=== PATIENT | female | born 1975 | race American Indian/Alaskan Native ===

== ENCOUNTER 2020-10-29 18:37 | Inpatient (IN) | payer OTHER ==
[2020-10-29] MEDS ORDERED: IPRATROPIUM/ALBUTEROL SULFATE 3 ML AMPUL.NEB IH ONE (19:19)
--- NOTE | 2020-10-29 19:23 | Emergency Department Report ---
HPI - General Chief Complaint: Dyspnea/Respdistress Time Seen by Provider: 10/29/20 19:07 - HPI HPI: 44-year-old female with history of COPD and HIV is brought in by EMS due to worsening shortness of breath and hypoxia. According to the EMS report, the p atient called because she was feeling more short of breath and when they arrived she was noted to be hypoxic with an oxygen saturation in the 80s on room air. She was given 2 L via nasal cannula and her oxygen saturation improved to the high 90s. The patient states that she has been off all antiretroviral therapy for the past 6 months because her prior therapy was causing her to vomit. For the past 2 months she has been experiencing worsening shortness of breath and unintentional weight loss. She is unsure of exactly how much weight she has lost. The patient has bilateral breast implants and says that with her weight loss they are very heavy on her chest and weighing her down. She has had a chronic cough over that period of time. Her shortness of breath worsened over the last week and was not improved by using her inhaler and so she decided to call 911. She has had no chest pain palpitations, nausea vomiting, abdominal pain, headache, vision change, back pain, dysuria, or any other complaints. At the present time her only complaint is mild shortness of breath which is improved on supplemental oxygen. She is fully vaccinated against COVID-19. ED Past Medical Hx - Past Medical History Previous Medical History?: Yes Hx HIV: Yes Additional medical history: COPD - Surgical History Past Surgical History?: Yes Additional Surgical History: Breast - Social History Smoking Status: Current Every Day Smoker Substance Use Type: None ED Review of Systems ROS: Stated complaint: DIFF BREATHING Other details as noted in HPI Constitutional: denies: chills, fever Eyes: denies: eye pain, vision change ENT: denies: throat pain, congestion Respiratory: cough, shortness of breath, wheezing Cardiovascular: denies: chest pain, palpitations, syncope Gastrointestinal: denies: abdominal pain, nausea, vomiting, diarrhea Genitourinary: denies: dysuria, frequency Musculoskeletal: denies: back pain, joint swelling Skin: denies: rash, pruritus Neurological: denies: headache, weakness, numbness, paresthesias Physical Exam - Physical Exam Vital Signs: Vital Signs 10/29/20 19:09 Temperature 97.9 F Pulse Rate 106 H Respiratory 18 Rate Blood Pressure 113/85 [Right] O2 Sat by Pulse 100 Oximetry Physical Exam: GENERAL: Well developed and well nourished. In mild respiratory distress HEAD: Normocephalic. No obvious signs of trauma. ENT: Moist mucous membranes. EYES: Extraocular movements are intact. Pupils are equal round and reactive to light bilaterally NECK: Supple. Full ROM is intact. Trachea is midline. LUNGS: Tripod posturing. Tachypneic but without accessory muscle use. Equal chest rise bilaterally. Lung auscultation reveals globally decreased air movement throughout with no discernible wheezes. CARDIOVASCULAR: Regular rate and rhythm. No murmurs or rubs. CHEST: RN Sarah was in the room as a machine farmworker, the patient has bilateral breast implants with overlying peau d'orange -like skin changes which the patient states has been chronic VASCULAR: Cap refill < 2 seconds. 1+ edema of the bilateral lower extremities ABDOMEN: Abdomen is soft and nondistended. There is no significant tenderness, guarding or rebound. SKIN: Skin is warm and dry NEURO: Patient is awake, alert, and oriented. beverage manager II-XII grossly intact. No focal deficits. Normal motor and sensory exam throughout. Normal speech. MUSCULOSKELETAL: No obvious deformities. No significant tenderness. Normal ROM throughout. BACK/SPINE: No costovertebral angle tenderness. ED Course Vital Signs 10/29/20 19:09 Temperature 97.9 F Pulse Rate 106 H Respiratory 18 Rate Blood Pressure 113/85 [Right] O2 Sat by Pulse 100 Oximetry ED Medical Decision Making - Lab Data Result diagrams: 10/29/20 19:38 10/29/20 19:38 Lab Results 10/29/20 10/29/20 10/29/20 Range/Units 19:38 19:38 19:38 WBC 3.5 L (4.5-11.0) K/mm3 RBC 5.30 H (3.65-5.03) M/mm3 Hgb 13.3 (10.1-14.3) gm/dl Hct 42.2 (30.3-42.9) % MCV 80 (79-97) fl MCH 25 L (28-32) pg MCHC 32 (30-34) % RDW 15.9 H (13.2-15.2) % Plt Count 142 (140-440) K/mm3 Dickenson % (Auto) Service Parts Coordinator Add Manual Diff Complete Total Counted 100 Seg Neuts % (Manual) 63.0 (40.0-70.0) % Lymphocytes % (Manual) 19.0 (13.4-35.0) % Monocytes % (Manual) 15.0 H (0.0-7.3) % Eosinophils % (Manual) 2.0 (0.0-4.3) % Basophils % (Manual) 1.0 (0.0-1.8) % Nucleated RBC % Not Reportable Seg Neutrophils # Man 2.2 (1.8-7.7) K/mm3 Band Neutrophils # 0.0 K/mm3 Lymphocytes # (Manual) 0.7 L (1.2-5.4) K/mm3 Abs React Lymphs (Man) 0.0 K/mm3 Monocytes # (Manual) 0.5 (0.0-0.8) K/mm3 Eosinophils # (Manual) 0.1 (0.0-0.4) K/mm3 Basophils # (Manual) 0.0 (0.0-0.1) K/mm3 Metamyelocytes # 0.0 K/mm3 Myelocytes # 0.0 K/mm3 Promyelocytes # 0.0 K/mm3 Blast Cells # 0.0 K/mm3 WBC Morphology Not Reportable Hypersegmented Neuts Not Reportable Hyposegmented Neuts Not Reportable Hypogranular Neuts Not Reportable Smudge Cells Not Reportable Toxic Granulation Not Reportable Toxic Vacuolation Not Reportable Dohle Bodies Not Reportable Pelger-Huet Anomaly Not Reportable Sara Rods Not Reportable Platelet Estimate Not Reportable Clumped Platelets Not Reportable Plt Clumps, EDTA Not Reportable Large Platelets Not Reportable Giant Platelets Not Reportable Platelet Satelliting Not Reportable Plt Morphology Comment Not Reportable RBC Morphology Not Reportable Dimorphic RBCs Not Reportable Polychromasia Not Reportable Hypochromasia 1+ Poikilocytosis Not Reportable Anisocytosis Rare Microcytosis Not Reportable Macrocytosis Not Reportable Spherocytes Not Reportable Pappenheimer Bodies Not Reportable Sickle Cells Not Reportable Target Cells Not Reportable Tear Drop Cells Not Reportable Ovalocytes Not Reportable Helmet Cells Not Reportable [place] Bodies Not Reportable Rosenberg Rings Not Reportable Mary Cells Not Reportable Bite Cells Not Reportable Crenated Cell Not Reportable Elliptocytes Not Reportable Acanthocytes (Spur) Not Reportable Rouleaux Not Reportable Hemoglobin C Crystals Not Reportable Schistocytes Not Reportable Malaria parasites Not Reportable Margarito Bodies Not Reportable Hem Pathologist Commnt No PT 13.7 (12.2-14.9) Sec. INR 0.99 (0.87-1.13) APTT 31.3 (24.2-36.6) Sec. D-Dimer 1118.13 H (0-234) ng/mlDDU ABG pH (7.320-7.450) POC ABG pCO2 (32.0-48.0) mmHg POC ABG pO2 (83-108) mmHg POC ABG HCO3 ABG O2 Saturation (0-100) POC ABG Base Excess ABG Hemoglobin (12.0-17.5) ABG Oxyhemoglobin (94-98) ABG Methemoglobin (0.0-1.5) ABG Sodium (136.0-145.0) mmol/L ABG Potassium (3.40-4.50) mmol/L ABG Chloride (98-107) mmol/L ABG Glucose (65-95) mg/dL Carboxyhemoglobin (0.5-1.5) FiO2 % Sodium 138 (137-145) mmol/L Potassium 5.0 (3.6-5.0) mmol/L Chloride 100.4 (98-107) mmol/L Carbon Dioxide 30 (22-30) mmol/L Anion Gap 13 mmol/L BUN 13 (7-17) mg/dL Creatinine 1.2 (0.6-1.2) mg/dL Estimated GFR 48 ml/min BUN/Creatinine Ratio 11 % Glucose 81 (65-100) mg/dL Calcium 8.4 (8.4-10.2) mg/dL Magnesium 1.70 (1.7-2.3) mg/dL Ferritin (10.0-200.0) ng/mL Total Bilirubin 0.40 (0.1-1.2) mg/dL Direct Bilirubin < 0.2 (0-0.2) mg/dL Indirect Bilirubin 0.2 mg/dL AST 47 H (5-40) units/L ALT 12 (7-56) units/L Alkaline Phosphatase 94 (35-129) units/L Lactate Dehydrogenase (91-180) units/L Troponin T (0.00-0.029) ng/mL C-Reactive Protein (0.00-1.30) mg/dL NT-Pro-B Natriuret Pep 173.4 (0-450) pg/mL Total Protein 7.9 (6.3-8.2) g/dL Albumin 3.3 L (3.9-5) g/dL Albumin/Globulin Ratio 0.7 % Lipase 25 (13-60) units/L TSH (0.270-4.200) mlU/mL Arterial Blood Glucose (65-95) mg/dL 10/29/20 10/29/20 10/29/20 Range/Units 19:38 19:38 19:38 WBC (4.5-11.0) K/mm3 RBC (3.65-5.03) M/mm3 Hgb (10.1-14.3) gm/dl Hct (30.3-42.9) % MCV (79-97) fl MCH (28-32) pg MCHC (30-34) % RDW (13.2-15.2) % Plt Count (140-440) K/mm3 Dickenson % (Auto) Add Manual Diff Total Counted Seg Neuts % (Manual) (40.0-70.0) % Lymphocytes % (Manual) (13.4-35.0) % Monocytes % (Manual) (0.0-7.3) % Eosinophils % (Manual) (0.0-4.3) % Basophils % (Manual) (0.0-1.8) % Nucleated RBC % Seg Neutrophils # Man (1.8-7.7) K/mm3 Band Neutrophils # K/mm3 Lymphocytes # (Manual) (1.2-5.4) K/mm3 Abs React Lymphs (Man) K/mm3 Monocytes # (Manual) (0.0-0.8) K/mm3 Eosinophils # (Manual) (0.0-0.4) K/mm3 Basophils # (Manual) (0.0-0.1) K/mm3 Metamyelocytes # K/mm3 Myelocytes # K/mm3 Promyelocytes # K/mm3 Blast Cells # K/mm3 WBC Morphology Hypersegmented Neuts Hyposegmented Neuts Hypogranular Neuts Smudge Cells Toxic Granulation Toxic Vacuolation Dohle Bodies Pelger-Huet Anomaly Sara Rods Platelet Estimate Clumped Platelets Plt Clumps, EDTA Large Platelets Giant Platelets Platelet Satelliting Plt Morphology Comment RBC Morphology Dimorphic RBCs Polychromasia Hypochromasia Poikilocytosis Anisocytosis Microcytosis Macrocytosis Spherocytes Pappenheimer Bodies Sickle Cells Target Cells Tear Drop Cells Ovalocytes Helmet Cells [place] Bodies Rosenberg Rings [place] Cells Bite Cells Crenated Cell Elliptocytes Acanthocytes (Spur) Rouleaux Hemoglobin C Crystals Schistocytes Malaria parasites Margarito Bodies Hem Pathologist Commnt PT (12.2-14.9) Sec. INR (0.87-1.13) APTT (24.2-36.6) Sec. D-Dimer (0-234) ng/mlDDU ABG pH (7.320-7.450) POC ABG pCO2 (32.0-48.0) mmHg POC ABG pO2 (83-108) mmHg POC ABG HCO3 ABG O2 Saturation (0-100) POC ABG Base Excess ABG Hemoglobin (12.0-17.5) ABG Oxyhemoglobin (94-98) ABG Methemoglobin (0.0-1.5) ABG Sodium (136.0-145.0) mmol/L ABG Potassium (3.40-4.50) mmol/L ABG Chloride (98-107) mmol/L ABG Glucose (65-95) mg/dL Carboxyhemoglobin (0.5-1.5) FiO2 % Sodium (137-145) mmol/L Potassium (3.6-5.0) mmol/L Chloride (98-107) mmol/L Carbon Dioxide (22-30) mmol/L Anion Gap mmol/L BUN (7-17) mg/dL Creatinine (0.6-1.2) mg/dL Estimated GFR ml/min BUN/Creatinine Ratio % Glucose 82 (65-100) mg/dL Calcium (8.4-10.2) mg/dL Magnesium (1.7-2.3) mg/dL Ferritin (10.0-200.0) ng/mL Total Bilirubin (0.1-1.2) mg/dL Direct Bilirubin (0-0.2) mg/dL Indirect Bilirubin mg/dL AST (5-40) units/L ALT (7-56) units/L Alkaline Phosphatase (35-129) units/L Lactate Dehydrogenase 817 H (91-180) units/L Troponin T < 0.010 (0.00-0.029) ng/mL C-Reactive Protein 0.30 (0.00-1.30) mg/dL NT-Pro-B Natriuret Pep (0-450) pg/mL Total Protein (6.3-8.2) g/dL Albumin (3.9-5) g/dL Albumin/Globulin Ratio % Lipase (13-60) units/L TSH 2.240 (0.270-4.200) mlU/mL Arterial Blood Glucose (65-95) mg/dL 10/29/20 10/29/20 10/29/20 Range/Units 19:38 19:38 19:50 WBC (4.5-11.0) K/mm3 RBC (3.65-5.03) M/mm3 Hgb (10.1-14.3) gm/dl Hct (30.3-42.9) % MCV (79-97) fl MCH (28-32) pg MCHC (30-34) % RDW (13.2-15.2) % Plt Count (140-440) K/mm3 Dickenson % (Auto) Add Manual Diff Total Counted Seg Neuts % (Manual) (40.0-70.0) % Lymphocytes % (Manual) (13.4-35.0) % Monocytes % (Manual) (0.0-7.3) % Eosinophils % (Manual) (0.0-4.3) % Basophils % (Manual) (0.0-1.8) % Nucleated RBC % Seg Neutrophils # Man (1.8-7.7) K/mm3 Band Neutrophils # K/mm3 Lymphocytes # (Manual) (1.2-5.4) K/mm3 Abs React Lymphs (Man) K/mm3 Monocytes # (Manual) (0.0-0.8) K/mm3 Eosinophils # (Manual) (0.0-0.4) K/mm3 Basophils # (Manual) (0.0-0.1) K/mm3 Metamyelocytes # K/mm3 Myelocytes # K/mm3 Promyelocytes # K/mm3 Blast Cells # K/mm3 WBC Morphology Hypersegmented Neuts Hyposegmented Neuts Hypogranular Neuts Smudge Cells Toxic Granulation Toxic Vacuolation Dohle Bodies Pelger-Huet Anomaly Sara Rods Platelet Estimate Clumped Platelets Plt Clumps, EDTA Large Platelets Giant Platelets Platelet Satelliting Plt Morphology Comment RBC Morphology Dimorphic RBCs Polychromasia Hypochromasia Poikilocytosis Anisocytosis Microcytosis Macrocytosis Spherocytes Pappenheimer Bodies Sickle Cells Target Cells Tear Drop Cells Ovalocytes Helmet Cells [place] Bodies Rosenberg Rings [place] Cells Bite Cells Crenated Cell Elliptocytes Acanthocytes (Spur) Rouleaux Hemoglobin C Crystals Schistocytes Malaria parasites Margarito Bodies Hem Pathologist Commnt PT (12.2-14.9) Sec. INR (0.87-1.13) APTT (24.2-36.6) Sec. D-Dimer (0-234) ng/mlDDU ABG pH 7.368 (7.320-7.450) POC ABG pCO2 55.7 H (32.0-48.0) mmHg POC ABG pO2 52.2 L (83-108) mmHg POC ABG HCO3 31.3 ABG O2 Saturation 86.7 (0-100) POC ABG Base Excess 4.5 ABG Hemoglobin 14.1 (12.0-17.5) ABG Oxyhemoglobin 85.5 L (94-98) ABG Methemoglobin 0 (0.0-1.5) ABG Sodium 137.5 (136.0-145.0) mmol/L ABG Potassium 4.4 (3.40-4.50) mmol/L ABG Chloride 100.0 (98-107) mmol/L ABG Glucose 83 (65-95) mg/dL Carboxyhemoglobin 1.4 (0.5-1.5) FiO2 % 21.0 Sodium (137-145) mmol/L Potassium (3.6-5.0) mmol/L Chloride (98-107) mmol/L Carbon Dioxide (22-30) mmol/L Anion Gap mmol/L BUN (7-17) mg/dL Creatinine (0.6-1.2) mg/dL Estimated GFR ml/min BUN/Creatinine Ratio % Glucose 81 (65-100) mg/dL Calcium (8.4-10.2) mg/dL Magnesium (1.7-2.3) mg/dL Ferritin 2459.0 H (10.0-200.0) ng/mL Total Bilirubin (0.1-1.2) mg/dL Direct Bilirubin (0-0.2) mg/dL Indirect Bilirubin mg/dL AST (5-40) units/L ALT (7-56) units/L Alkaline Phosphatase (35-129) units/L Lactate Dehydrogenase 769 H (91-180) units/L Troponin T (0.00-0.029) ng/mL C-Reactive Protein 0.30 (0.00-1.30) mg/dL NT-Pro-B Natriuret Pep (0-450) pg/mL Total Protein (6.3-8.2) g/dL Albumin (3.9-5) g/dL Albumin/Globulin Ratio % Lipase (13-60) units/L TSH (0.270-4.200) mlU/mL Arterial Blood Glucose 83 (65-95) mg/dL 10/30/20 10/30/20 Range/Units 00:02 00:42 WBC (4.5-11.0) K/mm3 RBC (3.65-5.03) M/mm3 Hgb (10.1-14.3) gm/dl Hct (30.3-42.9) % MCV (79-97) fl MCH (28-32) pg MCHC (30-34) % RDW (13.2-15.2) % Plt Count (140-440) K/mm3 Dickenson % (Auto) Add Manual Diff Total Counted Seg Neuts % (Manual) (40.0-70.0) % Lymphocytes % (Manual) (13.4-35.0) % Monocytes % (Manual) (0.0-7.3) % Eosinophils % (Manual) (0.0-4.3) % Basophils % (Manual) (0.0-1.8) % Nucleated RBC % Seg Neutrophils # Man (1.8-7.7) K/mm3 Band Neutrophils # K/mm3 Lymphocytes # (Manual) (1.2-5.4) K/mm3 Abs React Lymphs (Man) K/mm3 Monocytes # (Manual) (0.0-0.8) K/mm3 Eosinophils # (Manual) (0.0-0.4) K/mm3 Basophils # (Manual) (0.0-0.1) K/mm3 Metamyelocytes # K/mm3 Myelocytes # K/mm3 Promyelocytes # K/mm3 Blast Cells # K/mm3 WBC Morphology Hypersegmented Neuts Hyposegmented Neuts Hypogranular Neuts Smudge Cells Toxic Granulation Toxic Vacuolation Dohle Bodies Pelger-Huet Anomaly Sara Rods Platelet Estimate Clumped Platelets Plt Clumps, EDTA Large Platelets Giant Platelets Platelet Satelliting Plt Morphology Comment RBC Morphology Dimorphic RBCs Polychromasia Hypochromasia Poikilocytosis Anisocytosis Microcytosis Macrocytosis Spherocytes Pappenheimer Bodies Sickle Cells Target Cells Tear Drop Cells Ovalocytes Helmet Cells [place] Bodies Rosenberg Rings Mary Cells Bite Cells Crenated Cell Elliptocytes Acanthocytes (Spur) Rouleaux Hemoglobin C Crystals Schistocytes Malaria parasites Margarito Bodies Hem Pathologist Commnt PT (12.2-14.9) Sec. INR (0.87-1.13) APTT (24.2-36.6) Sec. D-Dimer (0-234) ng/mlDDU ABG pH 7.296 L (7.320-7.450) POC ABG pCO2 61.5 H (32.0-48.0) mmHg POC ABG pO2 77.7 L (83-108) mmHg POC ABG HCO3 29.3 ABG O2 Saturation 94.7 (0-100) POC ABG Base Excess 1.5 ABG Hemoglobin 13.0 (12.0-17.5) ABG Oxyhemoglobin 93.8 L (94-98) ABG Methemoglobin 0.1 (0.0-1.5) ABG Sodium 136.1 (136.0-145.0) mmol/L ABG Potassium 4.5 (3.40-4.50) mmol/L ABG Chloride 100.0 (98-107) mmol/L ABG Glucose 86 (65-95) mg/dL Carboxyhemoglobin 0.9 (0.5-1.5) FiO2 % 30.0 Sodium (137-145) mmol/L Potassium (3.6-5.0) mmol/L Chloride (98-107) mmol/L Carbon Dioxide (22-30) mmol/L Anion Gap mmol/L BUN (7-17) mg/dL Creatinine (0.6-1.2) mg/dL Estimated GFR ml/min BUN/Creatinine Ratio % Glucose (65-100) mg/dL Calcium (8.4-10.2) mg/dL Magnesium (1.7-2.3) mg/dL Ferritin (10.0-200.0) ng/mL Total Bilirubin (0.1-1.2) mg/dL Direct Bilirubin (0-0.2) mg/dL Indirect Bilirubin mg/dL AST (5-40) units/L ALT (7-56) units/L Alkaline Phosphatase (35-129) units/L Lactate Dehydrogenase (91-180) units/L Troponin T < 0.010 (0.00-0.029) ng/mL C-Reactive Protein (0.00-1.30) mg/dL NT-Pro-B Natriuret Pep (0-450) pg/mL Total Protein (6.3-8.2) g/dL Albumin (3.9-5) g/dL Albumin/Globulin Ratio % Lipase (13-60) units/L TSH (0.270-4.200) mlU/mL Arterial Blood Glucose 86 (65-95) mg/dL - EKG Data -: EKG Interpreted by Me - EKG Data 10/30/20 01:46 Normal sinus rhythm. Normal axis. Normal intervals. No ectopy. No significant ST segment or T wave abnormalities. Low voltage EKG - Radiology Data CHEST 2 VIEWS INDICATION / CLINICAL INFORMATION: Chest Pain. COMPARISON: None available. FINDINGS: SUPPORT DEVICES: None. HEART / MEDIASTINUM: No significant abnormality. LUNGS / PLEURA: No significant pulmonary or pleural abnormality. No pneumothorax. ADDITIONAL FINDINGS: No significant additional findings. IMPRESSION: 1. No acute findings. Signer Name: Julian Stubbs MD Signed: 10/29/2020 6:48 PM Workstation Name: [id number] CTA CHEST WITH IV CONTRAST INDICATION: Respiratory Distress / Dyspnea. TECHNIQUE: Axial CT images were obtained through the chest after injection of 100 cc Omnipaque 350 IV contrast. 3 plane MIP reconstructions were produced. All CT scans at this location are performed using CT dose reduction for ALARA by means of automated exposure control. COMPARISON: Chest 2 views performed earlier today. FINDINGS: PULMONARY ARTERIES: No pulmonary emboli. AORTA AND ARTERIES: The aorta is normal in caliber. There is mild coronary atherosclerosis. No other significant abnormality. HEART: No significant abnormality. MEDIASTINUM: No mass or lymphadenopathy. The trachea and main bronchi are patent and normal in caliber. LUNGS: There is mild bilateral atelectasis. No suspicious nodule, mass or consolidation. No pneumothorax or pleural effusion. ADDITIONAL FINDINGS: There is evidence of prior silicone injections in the breasts. UPPER ABDOMEN: No acute findings. BONES: No significant osseous abnormality. IMPRESSION: 1. No CT evidence for pulmonary embolism. 2. No acute findings. 3. Additional findings as above. Signer Name: Harry Lancaster MD Signed: 10/29/2020 10:37 PM Workstation Name: [id number] - Medical Decision Making 44-year-old female with history of HIV who has been off antiretroviral therapy for the last 6 months as well as COPD and active cigarette use is brought in by EMS due to worsening shortness of breath and hypoxia. Patient has had worsening shortness of breath over the last 2 months with unintentional weight loss and dry cough. The patient was initially satting in the 80s on room air which improved to the high 90s on 2 L via nasal cannula. On initial assessment she is afebrile and with normal vital signs other than very mild tachycardia. She has moist mucous membranes. She is tachypneic and with tripod posturing although she reports feeling much better on supplemental oxygen. Lung auscultation re veals severely decreased breath sounds throughout with no discernible wheezes. She has 1+ pitting edema bilaterally. The patient is vaccinated against COVID- 19. Nonetheless, given that the patient has HIV and has been off antiretroviral therapy and is hypoxic we will perform very broad work-up with a full set of labs including the COVID-19 order set, EKG, and chest x-ray. Given that she is hypoxic and may have AIDS, we will also obtain an ABG to calculate an AA gradient in the case that the patient has PCP pneumonia. We will give 125 mg of IV Solu-Medrol and duo nebs and reassess. The patient's room air ABG shows hypoxemia with a PaO2 of 52 and hypercarbia with CO2 of 55 consistent with the patient's COPD. The patient's AA gradient is calculated to be 27.9. On repeat assessment at 10:15 PM after the breathing treatments, the patient states she feels much better. She is no longer in respiratory distress. Patient is satting 98% on 2 L via nasal cannula. Labs reveal leukopenia with a white blood cell count of 3.5. Her absolute lymphocyte count is 700, which is consistent with a diagnosis of AIDS. Creatinine is 1.2 and there are no significant electrolyte abnormalities. Chest x-ray reveals no acute abnormalities and no signs of pneumonia. However, the patient's D-dimer is elevated at 1118. We will perform CTA of the chest to assess for evidence of pulmonary embolism versus other atypical lung infection. CTA of the chest reveals no evidence of pulmonary embolism or pneumonia. Given that the patient has a COPD exacerbation with hypoxia, we will call [facility] to determine whether the patient will be transferred or will be admitted to our hospital. On repeat assessment at 12 midnight, the patient is sleeping in the room. When I aroused her, she stated that she feels much better, although lung auscultation reveals very tight airways without any wheezing. I called the respiratory therapist and ordered a repeat ABG to assess for worsening hypercarbia. At 12:19 AM I spoke with Dr. Monteiro of [facility] regarding the case. She stated that the patient should not be transferred and should be admitted to our hospital. Repeat ABG shows worsening hypercarbia. I have ordered continuous nebs and BiPAP. I personally called the respiratory therapist and asked her to initiate BiPAP on this patient. I have ordered a repeat ABG to be performed 30 minutes after BiPAP. At 12:37 AM, I spoke with Dr. Delacruz the on-call hospitalist regarding the case. He accepts the patient for admission and will assume care. He came and examined the patient and understands that a repeat ABG after the patient is placed on BiPAP is still pending. Critical Care Time: Yes Critical care time in (mins) excluding proc time.: 85 Critical care attestation.: If time is entered above; I have spent that time in minutes in the direct care of this critically ill patient, excluding procedure time. Critical care time was spent in evaluation, assessment, work-up, and management of hypoxic and hypercarbic respiratory failure requiring supplemental oxygen, multiple breathing treatments, interpretation of blood gases, interpretation of x-rays, and multiple reassessments as well as initiation of BiPAP ED Disposition Clinical Impression: Respiratory failure with hypoxia and hypercapnia, COPD exacerbation, AIDS Disposition: 09 OP ADMIT IP TO THIS HOSP Is pt being admited?: Yes Condition: Serious
--- NOTE | 2020-10-29 19:52 | XRay Report ---
CHEST 2 VIEWS INDICATION / CLINICAL INFORMATION: Chest Pain. COMPARISON: None available. FINDINGS: SUPPORT DEVICES: None. HEART / MEDIASTINUM: No significant abnormality. LUNGS / PLEURA: No significant pulmonary or pleural abnormality. No pneumothorax. ADDITIONAL FINDINGS: No significant additional findings. IMPRESSION: 1. No acute findings. Signer Name: Julian Stubbs MD Signed: 10/29/2020 7:48 PM Workstation Name: [id number]
[2020-10-29 20:00] LABS: Hematocrit 42.2 % (30.3-42.9); Hemoglobin 13.3 gm/dl (10.1-14.3); Mean Corpuscular HGB Conc 32 % (30-34); Mean Corpuscular Volume 80 fl (79-97); Platelet Count 142 K/mm3 (140-440); Red Cell Distribution Width 15.9 % (13.2-15.2)
[2020-10-29 20:10] LABS: INR 0.99 (0.87-1.13)
[2020-10-29 20:11] LABS: Partial Thromboplastin Time 31.3 Sec. (24.2-36.6)
[2020-10-29 20:15] LABS: C-Reactive Protein 0.3 mg/dL (0.00-1.30)
[2020-10-29 20:20] LABS: C-Reactive Protein 0.3 mg/dL (0.00-1.30)
[2020-10-29 20:23] LABS: Alanine Aminotransferase 12 units/L (7-56); Albumin 3.3 g/dL (3.9-5); BUN/Creatinine Ratio 11; Blood Urea Nitrogen 13 mg/dL (7-17); Calcium 8.4 mg/dL (8.4-10.2); Hemolysis Index 8
[2020-10-29 20:30] LABS: Bilirubin,Direct < 0.2 mg/dL (0-0.2)
[2020-10-29 21:06] LABS: Total Cells Counted 100
[2020-10-29 21:07] LABS: Anisocytosis RARE; Hypochromasia 1+
[2020-10-29] MEDS ORDERED: ACETAMINOPHEN 500 MG TAB PO ONE (22:10)
[2020-10-29] MEDS ORDERED: methylPREDNISolone Sod Succinate 125 MG/2 ML INJ IV ONE (22:18)
--- NOTE | 2020-10-29 23:41 | Cat Scan Report ---
CTA CHEST WITH IV CONTRAST INDICATION: Respiratory Distress / Dyspnea. TECHNIQUE: Axial CT images were obtained through the chest after injection of 100 cc Omnipaque 350 IV contrast. 3 plane MIP reconstructions were produced. All CT scans at this location are performed using CT dose reduction for ALARA by means of automated exposure control. COMPARISON: Chest 2 views performed earlier today. FINDINGS: PULMONARY ARTERIES: No pulmonary emboli. AORTA AND ARTERIES: The aorta is normal in caliber. There is mild coronary atherosclerosis. No other significant abnormality. HEART: No significant abnormality. MEDIASTINUM: No mass or lymphadenopathy. The trachea and main bronchi are patent and normal in calibe r. LUNGS: There is mild bilateral atelectasis. No suspicious nodule, mass or consolidation. No pneumotho rax or pleural effusion. ADDITIONAL FINDINGS: There is evidence of prior silicone injections in the breasts. UPPER ABDOMEN: No acute findings. BONES: No significant osseous abnormality. IMPRESSION: 1. No CT evidence for pulmonary embolism. 2. No acute findings. 3. Additional findings as above. Signer Name: Harry Lancaster MD Signed: 10/29/2020 11:37 PM Workstation Name: [id number]
[2020-10-29] MEDS ORDERED: IPRATROPIUM 0.02% NEBU 2.5 ML IH ONE (23:51)
[2020-10-29] MEDS ORDERED: ALBUTEROL 2.5 MG/3 ML NEBU IH ONE (23:51)
[2020-10-30] MEDS ORDERED: MORPHINE 2 MG/1 ML INJ IV PRN (01:37)
[2020-10-30] MEDS ORDERED: ACETAMINOPHEN 325 MG TAB PO PRN (01:37)
[2020-10-30] MEDS ORDERED: MORPHINE 4 MG/1 ML INJ IV PRN (01:37)
[2020-10-30] MEDS ORDERED: MAGNESIUM HYDROXIDE (MOM) ORAL LIQD UDC PO PRN (01:45)
--- NOTE | 2020-10-30 02:13 | History and Physical Report ---
History of Present Illness Date of examination: 10/30/20 Date of admission: 10/30/20 00:53 Chief complaint: Shortness of breath History of present illness: 44-year-old -[place] Citizen female with known history of COPD and HIV currently not on any antiretroviral medication brought in by EMS today for shortness of breath and hypoxia. Patient had called EMS because because she was having progressive shortness of breath was found to be hypoxic with oxygen saturation in the 80s on room air upon arrival of EMS. Patient has not been taking her antiretroviral agent over the past 6 months because she indicates it makes her vomit. She has been having progressive s hortness of breath and weight loss over the past few months. Patient indicates that she has had some chronic cough which has been nonproductive. Shortness of breath gotten worse over the past few weeks. She has been using her inhaler without any significant improvement. Patient denies any fever or chills, no nausea vomiting, no abdominal pain, no hematuria or dysuria, no diarrhea, no headache or dizziness and no diaphoresis. She denies any recent travel and denies any sick contacts . She is also fully vaccinated against COVID-19. Upon arrival in the emergency room, patient was in respiratory distress and subsequently placed on BiPAP. Work-up in the emergency room today chest x-ray shows no acute findings. CT angiogram of the chest reveals no luminary embolism and no acute findings. H owever there is evidence of prior silicone injection in the breast. Patient is being admitted with COPD exacerbation and hypoxia. Past History Past Medical History: COPD, other (HIV/AIDS) Past Surgical History: Other (Bilateral breast implants) Social history: no significant social history, smoking (Current daily smoker) Family history: no significant family history Medications and Allergies Allergies Allergy/AdvReac Type Severity Reaction Status Date / Time No Known Allergies Allergy Unverified 10/29/20 19:05 Active Meds: Active Medications Acetaminophen (Acetaminophen 325 Mg Tab) 650 mg PO Q6H PRN PRN Reason: Pain MILD(1-3)/Fever >100.5/CHATMAN Albuterol/Ipratropium (Ipratropium/Albuterol Sulfate 3 Ml Ampul.Neb) 1 ampul IH Q4HRT KYAW Magnesium Hydroxide (Magnesium Hydroxide (Mom) Oral Liqd Udc) 30 ml PO Q4H PRN PRN Reason: Constipation Methylprednisolone Sodium Succinate (Methylprednisolone Sod Succinate 40 Mg/1 Ml Inj) 40 mg IV Q8HR KYAW Morphine Sulfate (Morphine 2 Mg/1 Ml Inj) 2 mg IV Q4H PRN PRN Reason: Pain, Moderate (4-6) Morphine Sulfate (Morphine 4 Mg/1 Ml Inj) 4 mg IV Q4H PRN PRN Reason: Pain , Severe (7-10) Sodium Chloride (Sodium Chloride 0.9% 10 Ml Flush Syringe) 10 ml IV BID KYAW Sodium Chloride (Sodium Chloride 0.9% 10 Ml Flush Syringe) 10 ml IV PRN PRN PRN Reason: LINE FLUSH Review of Systems Constitutional: no fever, no chills Ears, nose, mouth and throat: no nasal congestion, no sore throat Cardiovascular: no chest pain, no palpitations Respiratory: cough, shortness of breath Gastrointestinal: no abdominal pain, no nausea, no vomiting, no diarrhea Genitourinary Female: no pelvic pain, no flank pain, no dysuria, no hematuria Musculoskeletal: no neck pain, no low back pain Integumentary: no rash, no pruritis Neurological: no headaches, no confusion Psychiatric: no anxiety, no depression Endocrine: no polydipsia, no polyuria, no nocturia Exam - Constitutional Vitals: Temp Pulse Resp BP Pulse Ox 97.9 F 109 H 23 113/74 96 10/29/20 19:09 10/30/20 01:49 10/30/20 01:49 10/30/20 01:49 10/30/20 01:49 General appearance: Present: mild distress, well-nourished - EENT Eyes: Present: PERRL, EOM intact. Absent: scleral icterus ENT: hearing intact, clear oral mucosa, dentition normal - Neck Neck: Present: supple, normal ROM - Respiratory Respiratory effort: normal Respiratory: bilateral: diminished - Cardiovascular Rhythm: regular Heart Sounds: Present: S1 & S2. Absent: gallop, systolic murmur, diastolic murmur, rub, click - Extremities Extremities: no ischemia, pulses intact, pulses symmetrical, No edema, normal temperature, normal color, Full ROM Peripheral Pulses: within normal limits - Abdominal General gastrointestinal: Present: soft, non-tender, non-distended, normal bowel sounds. Absent: mass - Integumentary Integumentary: Present: clear, warm, dry. Absent: rash - Musculoskeletal Musculoskeletal: strength equal bilaterally - Psychiatric Psychiatric: appropriate mood/affect, intact judgment & insight, memory intact, cooperative - Neurologic Neurologic: CNII-XII intact, no focal deficits, moves all extremities HEART Score - HEART Score Troponin: Troponin T < 0.010 ng/mL (0.00-0.029) 10/30/20 00:02 Results - Labs CBC & Chem 7: 10/29/20 19:38 10/29/20 19:38 Labs: Abnormal lab results 10/29/20 10/29/20 10/29/20 Range/Units 19:38 19:38 19:38 WBC 3.5 L (4.5-11.0) K/mm3 RBC 5.30 H (3.65-5.03) M/mm3 MCH 25 L (28-32) pg RDW 15.9 H (13.2-15.2) % Monocytes % (Manual) 15.0 H (0.0-7.3) % Lymphocytes # (Manual) 0.7 L (1.2-5.4) K/mm3 D-Dimer 1118.13 H (0-234) ng/mlDDU ABG pH (7.320-7.450) POC ABG pCO2 (32.0-48.0) mmHg POC ABG pO2 (83-108) mmHg ABG Oxyhemoglobin (94-98) Ferritin (10.0-200.0) ng/mL AST 47 H (5-40) units/L Lactate Dehydrogenase (91-180) units/L Albumin 3.3 L (3.9-5) g/dL 10/29/20 10/29/20 10/29/20 Range/Units 19:38 19:38 19:38 WBC (4.5-11.0) K/mm3 RBC (3.65-5.03) M/mm3 MCH (28-32) pg RDW (13.2-15.2) % Monocytes % (Manual) (0.0-7.3) % Lymphocytes # (Manual) (1.2-5.4) K/mm3 D-Dimer (0-234) ng/mlDDU ABG pH (7.320-7.450) POC ABG pCO2 (32.0-48.0) mmHg POC ABG pO2 (83-108) mmHg ABG Oxyhemoglobin (94-98) Ferritin 2459.0 H (10.0-200.0) ng/mL AST (5-40) units/L Lactate Dehydrogenase 817 H 769 H (91-180) units/L Albumin (3.9-5) g/dL 10/29/20 10/30/20 Range/Units 19:50 00:42 WBC (4.5-11.0) K/mm3 RBC (3.65-5.03) M/mm3 MCH (28-32) pg RDW (13.2-15.2) % Monocytes % (Manual) (0.0-7.3) % Lymphocytes # (Manual) (1.2-5.4) K/mm3 D-Dimer (0-234) ng/mlDDU ABG pH 7.296 L (7.320-7.450) POC ABG pCO2 55.7 H 61.5 H (32.0-48.0) mmHg POC ABG pO2 52.2 L 77.7 L (83-108) mmHg ABG Oxyhemoglobin 85.5 L 93.8 L (94-98) Ferritin (10.0-200.0) ng/mL AST (5-40) units/L Lactate Dehydrogenase (91-180) units/L Albumin (3.9-5) g/dL Assessment and Plan - Patient Problems (1) COPD exacerbation Current Visit: Yes Status: Acute Plan to address problem: Patient placed on nebulizer treatment and IV steroid. She is currently on BiPAP secondary to the respiratory distress. Consult placed to pulmonology for evaluation. (2) Respiratory failure with hypoxia and hypercapnia Current Visit: Yes Status: Acute Plan to address problem: Secondary to the COPD exacerbation. Patient currently on BiPAP. We will await evaluation by pulmonology. (3) History of HIV or AIDS Current Visit: Yes Status: Acute Plan to address problem: Patient not on any antiretroviral agent. CD4 counts and viral load unknown. We will request infectious disease evaluation prior to discharge. (4) DVT prophylaxis Current Visit: Yes Status: Acute Plan to address problem: Patient placed on subcutaneous heparin. (5) Full code status Current Visit: Yes Status: Acute Plan to address problem: Patient is a full code.
[2020-10-30] MEDS ORDERED: methylPREDNISolone Sod Succinate 40 MG/1 ML INJ IV SCH (06:00)
[2020-10-30] MEDS ORDERED: HEPARIN 5,000 UNIT/1 ML VIAL SUB-Q SCH (06:00)
[2020-10-30] MEDS: IPRATROPIUM/ALBUTEROL SULFATE 3 ML AMPUL.NEB IH SCH ×3 (06:39→11:53)
--- NOTE | 2020-10-30 11:24 | Progress Note ---
History Interval history: Acute COPD exacerbation Acute hypercapnic hypoxic respiratory failure. HIV/AIDS 10/30/2020. [facility] may elect to transfer patient to a [facility] facility. Respiratory has improved and patient satting 96% with 2 L of oxygen. Continue IV steroids and breathing treatment/nebulizers. Await COVID-19 testing. The patient will be transferred to the floor Hospitalist Physical - Constitutional Vitals: Temp Pulse Resp BP Pulse Ox 97.8 F 99 H 16 106/67 96 10/30/20 07:00 10/30/20 10:00 10/30/20 08:40 10/30/20 10:00 10/30/20 10:00 General appearance: Present: mild distress, well-nourished HEART Score - HEART Score Troponin: Troponin T < 0.010 ng/mL (0.00-0.029) 10/30/20 06:04 Results - Labs CBC & Chem 7: 10/29/20 19:38 10/29/20 19:38 Labs: Laboratory Last Values WBC 3.5 K/mm3 (4.5-11.0) L 10/29/20 19:38 RBC 5.30 M/mm3 (3.65-5.03) H 10/29/20 19:38 Hgb 13.3 gm/dl (10.1-14.3) 10/29/20 19:38 Hct 42.2 % (30.3-42.9) 10/29/20 19:38 MCV 80 fl (79-97) 10/29/20 19:38 MCH 25 pg (28-32) L 10/29/20 19:38 MCHC 32 % (30-34) 10/29/20 19:38 RDW 15.9 % (13.2-15.2) H 10/29/20 19:38 Plt Count 142 K/mm3 (140-440) 10/29/20 19:38 [place] % (Auto) Client Development Manager 10/29/20 19:38 Add Manual Diff Complete 10/29/20 19:38 Total Counted 100 10/29/20 19:38 Seg Neuts % (Manual) 63.0 % (40.0-70.0) 10/29/20 19:38 Lymphocytes % (Manual) 19.0 % (13.4-35.0) 10/29/20 19:38 Monocytes % (Manual) 15.0 % (0.0-7.3) H 10/29/20 19:38 Eosinophils % (Manual) 2.0 % (0.0-4.3) 10/29/20 19:38 Basophils % (Manual) 1.0 % (0.0-1.8) 10/29/20 19:38 Nucleated RBC % Not Reportable 10/29/20 19:38 Seg Neutrophils # Man 2.2 K/mm3 (1.8-7.7) 10/29/20 19:38 Band Neutrophils # 0.0 K/mm3 10/29/20 19:38 Lymphocytes # (Manual) 0.7 K/mm3 (1.2-5.4) L 10/29/20 19:38 Abs React Lymphs (Man) 0.0 K/mm3 10/29/20 19:38 Monocytes # (Manual) 0.5 K/mm3 (0.0-0.8) 10/29/20 19:38 Eosinophils # (Manual) 0.1 K/mm3 (0.0-0.4) 10/29/20 19:38 Basophils # (Manual) 0.0 K/mm3 (0.0-0.1) 10/29/20 19:38 Metamyelocytes # 0.0 K/mm3 10/29/20 19:38 Myelocytes # 0.0 K/mm3 10/29/20 19:38 Promyelocytes # 0.0 K/mm3 10/29/20 19:38 Blast Cells # 0.0 K/mm3 10/29/20 19:38 WBC Morphology Not Reportable 10/29/20 19:38 Hypersegmented Neuts Not Reportable 10/29/20 19:38 Hyposegmented Neuts Not Reportable 10/29/20 19:38 Hypogranular Neuts Not Reportable 10/29/20 19:38 Smudge Cells Not Reportable 10/29/20 19:38 Toxic Granulation Not Reportable 10/29/20 19:38 Toxic Vacuolation Not Reportable 10/29/20 19:38 Dohle Bodies Not Reportable 10/29/20 19:38 Pelger-Huet Anomaly Not Reportable 10/29/20 19:38 Sara Rods Not Reportable 10/29/20 19:38 Platelet Estimate Not Reportable 10/29/20 19:38 Clumped Platelets Not Reportable 10/29/20 19:38 Plt Clumps, EDTA Not Reportable 10/29/20 19:38 Large Platelets Not Reportable 10/29/20 19:38 Giant Platelets Not Reportable 10/29/20 19:38 Platelet Satelliting Not Reportable 10/29/20 19:38 Plt Morphology Comment Not Reportable 10/29/20 19:38 RBC Morphology Not Reportable 10/29/20 19:38 Dimorphic RBCs Not Reportable 10/29/20 19:38 Polychromasia Not Reportable 10/29/20 19:38 Hypochromasia 1+ 10/29/20 19:38 Poikilocytosis Not Reportable 10/29/20 19:38 Anisocytosis Rare 10/29/20 19:38 Microcytosis Not Reportable 10/29/20 19:38 Macrocytosis Not Reportable 10/29/20 19:38 Spherocytes Not Reportable 10/29/20 19:38 Pappenheimer Bodies Not Reportable 10/29/20 19:38 Sickle Cells Not Reportable 10/29/20 19:38 Target Cells Not Reportable 10/29/20 19:38 Tear Drop Cells Not Reportable 10/29/20 19:38 Ovalocytes Not Reportable 10/29/20 19:38 Helmet Cells Not Reportable 10/29/20 19:38 [place] Bodies Not Reportable 10/29/20 19:38 [place] Rings Not Reportable 10/29/20 19:38 Mary Cells Not Reportable 10/29/20 19:38 Bite Cells Not Reportable 10/29/20 19:38 Crenated Cell Not Reportable 10/29/20 19:38 Elliptocytes Not Reportable 10/29/20 19:38 Acanthocytes (Spur) Not Reportable 10/29/20 19:38 Rouleaux Not Reportable 10/29/20 19:38 Hemoglobin C Crystals Not Reportable 10/29/20 19:38 Schistocytes Not Reportable 10/29/20 19:38 Malaria parasites Not Reportable 10/29/20 19:38 Margarito Bodies Not Reportable 10/29/20 19:38 Hem Pathologist Commnt No 10/29/20 19:38 PT 13.7 Sec. (12.2-14.9) 10/29/20 19:38 INR 0.99 (0.87-1.13) 10/29/20 19:38 APTT 31.3 Sec. (24.2-36.6) 10/29/20 19:38 D-Dimer 1118.13 ng/mlDDU (0-234) H 10/29/20 19:38 ABG pH 7.296 (7.320-7.450) L 10/30/20 00:42 POC ABG pCO2 61.5 mmHg (32.0-48.0) H 10/30/20 00:42 POC ABG pO2 77.7 mmHg (83-108) L 10/30/20 00:42 POC ABG HCO3 29.3 10/30/20 00:42 ABG O2 Saturation 94.7 (0-100) 10/30/20 00:42 POC ABG Base Excess 1.5 10/30/20 00:42 ABG Hemoglobin 13.0 (12.0-17.5) 10/30/20 00:42 ABG Oxyhemoglobin 93.8 (94-98) L 10/30/20 00:42 ABG Methemoglobin 0.1 (0.0-1.5) 10/30/20 00:42 ABG Sodium 136.1 mmol/L (136.0-145.0) 10/30/20 00:42 ABG Potassium 4.5 mmol/L (3.40-4.50) 10/30/20 00:42 ABG Chloride 100.0 mmol/L (98-107) 10/30/20 00:42 ABG Glucose 86 mg/dL (65-95) 10/30/20 00:42 Carboxyhemoglobin 0.9 (0.5-1.5) 10/30/20 00:42 FiO2 % 30.0 10/30/20 00:42 Sodium 138 mmol/L (137-145) 10/29/20 19:38 Potassium 5.0 mmol/L (3.6-5.0) 10/29/20 19:38 Chloride 100.4 mmol/L (98-107) 10/29/20 19:38 Carbon Dioxide 30 mmol/L (22-30) 10/29/20 19:38 Anion Gap 13 mmol/L 10/29/20 19:38 BUN 13 mg/dL (7-17) 10/29/20 19:38 Creatinine 1.2 mg/dL (0.6-1.2) 10/29/20 19:38 Estimated GFR 48 ml/min 10/29/20 19:38 BUN/Creatinine Ratio 11 % 10/29/20 19:38 Glucose 81 mg/dL (65-100) 10/29/20 19:38 Glucose 81 mg/dL (65-100) 10/29/20 19:38 Glucose 82 mg/dL (65-100) 10/29/20 19:38 Calcium 8.4 mg/dL (8.4-10.2) 10/29/20 19:38 Magnesium 1.70 mg/dL (1.7-2.3) 10/29/20 19:38 Ferritin 2459.0 ng/mL (10.0-200.0) H 10/29/20 19:38 Total Bilirubin 0.40 mg/dL (0.1-1.2) 10/29/20 19:38 Direct Bilirubin < 0.2 mg/dL (0-0.2) 10/29/20 19:38 Indirect Bilirubin 0.2 mg/dL 10/29/20 19:38 AST 47 units/L (5-40) H 10/29/20 19:38 ALT 12 units/L (7-56) 10/29/20 19:38 Alkaline Phosphatase 94 units/L (35-129) 10/29/20 19:38 Lactate Dehydrogenase 769 units/L (91-180) H 10/29/20 19:38 Lactate Dehydrogenase 817 units/L (91-180) H 10/29/20 19:38 Troponin T < 0.010 ng/mL (0.00-0.029) 10/30/20 06:04 C-Reactive Protein 0.30 mg/dL (0.00-1.30) 10/29/20 19:38 C-Reactive Protein 0.30 mg/dL (0.00-1.30) 10/29/20 19:38 NT-Pro-B Natriuret Pep 173.4 pg/mL (0-450) 10/29/20 19:38 Total Protein 7.9 g/dL (6.3-8.2) 10/29/20 19:38 Albumin 3.3 g/dL (3.9-5) L 10/29/20 19:38 Albumin/Globulin Ratio 0.7 % 10/29/20 19:38 Lipase 25 units/L (13-60) 10/29/20 19:38 Procalcitonin 0.13 ng/mL (<0.15) 10/29/20 19:38 TSH 2.240 mlU/mL (0.270-4.200) 10/29/20 19:38 Arterial Blood Glucose 86 mg/dL (65-95) 10/30/20 00:42 Active Medications - Current Medications Current Medications: Generic Name Dose Route Start Last Admin Trade Name Freq PRN Reason Stop Dose Admin Acetaminophen 650 mg 10/30/20 01:37 Acetaminophen 325 Mg Tab PO Q6H PRN Pain MILD(1-3)/Fever >100.5/CHATMAN Albuterol/Ipratropium 1 ampul 10/30/20 04:00 10/30/20 08:17 Ipratropium/Albuterol Sulfate 3 Ml Ampul.Neb IH 1 ampul Q4HRT KYAW Administration Heparin Sodium (Porcine) 5,000 unit 10/30/20 06:00 10/30/20 05:37 Heparin 5,000 Unit/1 Ml Vial SUB-Q 5,000 unit Q8HR KYAW Administration Levofloxacin/Dextrose 750 mg in 150 mls @ 100 mls/hr 10/30/20 08:00 10/30/20 08:43 Levaquin 750mg/150ml IV 100 mls/hr Q24H KYAW Administration Protocol Magnesium Hydroxide 30 ml 10/30/20 01:45 Magnesium Hydroxide (Mom) Oral Liqd Udc PO Q4H PRN Constipation Methylprednisolone Sodium Succinate 40 mg 10/30/20 06:00 10/30/20 05:37 Methylprednisolone Sod Succinate 40 Mg/1 Ml Inj IV 40 mg Q8HR KYAW Administration Morphine Sulfate 2 mg 10/30/20 01:37 Morphine 2 Mg/1 Ml Inj IV Q4H PRN Pain, Moderate (4-6) Morphine Sulfate 4 mg 10/30/20 01:37 Morphine 4 Mg/1 Ml Inj IV Q4H PRN Pain , Severe (7-10) Sodium Chloride 10 ml 10/30/20 10:00 10/30/20 10:08 Sodium Chloride 0.9% 10 Ml Flush Syringe IV Not Given BID KYAW Sodium Chloride 10 ml 10/30/20 01:37 Sodium Chloride 0.9% 10 Ml Flush Syringe IV PRN PRN LINE FLUSH
--- NOTE | 2020-10-30 12:39 | Discharge Summary ---
Providers - Providers Date of Admission: 10/30/20 00:53 Date of discharge: 10/30/20 Attending physician: GRISEL SANTIAGO 10/30/20 01:37 Consult to Dietitian/Nutrition [CONS] Routine Physician Instructions: Reason For Exam: Reason for Consult: Diet education Consult to Physician [CONS] Routine Comment: Consulting Provider: ERLIN HERNANDEZ Physician Instructions: Reason For Exam: HIV/AIDs, Not on Medication,COPD with Hypoxia 10/30/20 07:22 Consult to Physician [CONS] Routine Comment: Consulting Provider: BLANCA IRWIN Physician Instructions: Reason For Exam: HIV positive-not on antiretroviral [facility] Reason for admission: COPD exac Condition: Serious Hospital course: 44-year-old -[place] female with known history of COPD and HIV currently not on any antiretroviral medication brought in by EMS today for shortness of breath and hypoxia. Patient had called EMS because because she was having progressive shortness of breath was found to be hypoxic with oxygen saturation in the 80s on room air upon arrival of EMS. Upon arrival in the emergency room, patient was in respiratory distress and subsequently placed on BiPAP. Work-up in the emergency room revealed chest x-ray with no acute findings. CT angiogram of the chest reveals no luminary embolism and no acute findings. However there is evidence of prior silicone injection in the breast. Patient was admitted with diagnosis of acute COPD exacerbation and acute hypoxic respiratory failure. The patient was treated with IV steroids, breathing treatments/nebulizers and O2. Patient was weaned off BiPAP and tolerated 2 L of O2 satting at 96%. Patient is stable and will be transferred to the floor. [facility] has elected to accept the patient to one of their facilities. Dedicated discharge time 32 minutes. Of note COVID-[address] and Covid testing pending. Disposition: [id number] IP Final Discharge Diagnosis (Prints w/discharge instructions): Acute COPD exacerbation, acute hypoxic respiratory failure Time spent for discharge: 32 Core Measure Documentation - Palliative Care Palliative Care/ Comfort Measures: Not Applicable - Core Measures Any of the following diagnoses?: none Exam - Constitutional Vitals: Temp Pulse Resp BP Pulse Ox 98.3 F 99 H 16 106/67 96 10/30/20 12:00 10/30/20 10:00 10/30/20 08:40 10/30/20 10:00 10/30/20 10:00 General appearance: Present: no acute distress, well-nourished - EENT Eyes: Present: PERRL ENT: hearing intact, clear oral mucosa - Neck Neck: Present: supple, normal ROM - Respiratory Respiratory effort: normal Respiratory: bilateral: CTA - Cardiovascular Heart Sounds: Present: S1 & S2. Absent: rub, click - Extremities Extremities: pulses symmetrical, No edema Peripheral Pulses: within normal limits - Abdominal General gastrointestinal: Present: soft, non-tender, non-distended, normal bowel sounds Female genitourinary: Present: normal - Integumentary Integumentary: Present: clear, warm, dry - Musculoskeletal Musculoskeletal: gait normal, strength equal bilaterally - Psychiatric Psychiatric: appropriate mood/affect, intact judgment & insight - Neurologic Neurologic: CNII-XII intact, moves all extremities Plan Activity: advance as tolerated Weight Bearing Status: Weight Bear as Tolerated Diet: regular Follow up with: RAMESH CORNEJO MD [Primary Care Provider] - 3-5 Days
[2020-10-30 13:00] LABS: Bilirubin,Urine NEG (Negative); Blood,Urine NEG (Negative); Color,Urine Yellow (Yellow); Mucus,Urine FEW /HPF; Urobilinogen,Urine < 2.0 mg/dL (<2.0)
[2020-10-30] MEDS ORDERED: cefTRIAXone/NS 1 GM/50 ML 1 GM/50 ML BAG IV SCH (13:00)
[2020-10-30 14:32] VITALS: BP 92/57
--- NOTE | 2020-11-01 11:45 | Electrocardiograph Report ---
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
== END 2020-10-30 14:45 | disposition short-term general hospital (02) | DRG 190 ==
LOC: EDBD → ED 18:37 → IMCU 10-30 00:53
PROVIDERS: ADMIT Internal Medicine Geriatric Medicine; ATTEND Hospitalist
PROC: 5A09357 Assistance with Respiratory Ventilation, Less than 24 Consecutive Hours, Continuous Positive Airway Pressure (ICD-10-PCS; principal; 2020-10-30)
DX: J44.1 Chronic obstructive pulmonary disease with (acute) exacerbation (principal); J96.01 Acute respiratory failure with hypoxia; J96.02 Acute respiratory failure with hypercapnia; B20 Human immunodeficiency virus [HIV] disease; Z20.822 Contact with and (suspected) exposure to COVID-19; F17.200 Nicotine dependence, unspecified, uncomplicated
CPT/HCPCS: 36415; 71046; 71275; 80048; 80076; 81001; 82728; 82805; 82947; 83615; 83690; 83735; 83880; 84145; 84443; 84484; 85007; 85025; 85379; 85610; 85730; 86140; 87641; 93005; 94640; 94644; 94660; 96365; 96375; 99292; G0378; J1644; J1956; J2920; J2930; Q9967; U0003

== ENCOUNTER 2021-04-05 22:20 | Inpatient (IN) | payer OTHER ==
[2021-04-05] MEDS ORDERED: SODIUM CHLORIDE 0.9% 500 ML 500 ML IV ONE (22:34)
[2021-04-05] MEDS ORDERED: IPRATROPIUM 0.02% NEBU 2.5 ML IH ONE (22:36)
[2021-04-05] MEDS ORDERED: AZITHROMYCIN/NS 500 MG/250 ML 500 MG/250 ML BAG IV ONE (22:36)
[2021-04-05] MEDS ORDERED: ALBUTEROL 2.5 MG/3 ML NEBU IH ONE (22:36)
--- NOTE | 2021-04-05 23:23 | XRay Report ---
CHEST 1 VIEW 04/05/2021 10:05 PM INDICATION / CLINICAL INFORMATION: dyspnea. COMPARISON: 10/29/2020 FINDINGS: SUPPORT DEVICES: None. HEART / MEDIASTINUM: No significant abnormality. LUNGS / PLEURA: No significant pulmonary or pleural abnormality. No pneumothorax. ADDITIONAL FINDINGS: No significant additional findings. IMPRESSION: 1. No acute findings. Signer Name: Derik Keenan DO Signed: 04/05/2021 11:18 PM Workstation Name: [id number]
[2021-04-05 23:57] LABS: Basophils % (Auto) 0.4 % (0.0-1.8); Eosinophils % (Auto) 0.5 % (0.0-4.3); Hematocrit 38.2 % (30.3-42.9); Hemoglobin 11.7 gm/dl (10.1-14.3); Lymphocytes % (Auto) 30.9 % (13.4-35.0); Mean Corpuscular HGB Conc 31 % (30-34); Mean Corpuscular Volume 83 fl (79-97); Monocytes # (Auto) 0.1 K/mm3 (0.0-0.8); Monocytes % (Auto) 4.5 % (0.0-7.3); Platelet Count 133 K/mm3 (140-440); Red Cell Distribution Width 15.6 % (13.2-15.2)
[2021-04-06 00:13] LABS: Albumin 3.4 g/dL (3.9-5); Calcium 11.8 mg/dL (8.4-10.2)
[2021-04-06] MEDS ORDERED: ENOXAPARIN 100 MG/1 ML INJ SUB-Q ONE (01:06)
[2021-04-06] MEDS ORDERED: SODIUM CHLORIDE 0.9% 1000 ML 1,000 ML IV ONE (01:14)
--- NOTE | 2021-04-06 01:14 | Emergency Department Report ---
ED Shortness of Breath HPI - General Chief Complaint: Dyspnea/Respdistress Stated Complaint: DIFF BREATHING Time Seen by Provider: 04/05/21 22:34 Source: EMS Mode of arrival: Stretcher Limitations: No Limitations - History of Present Illness Initial Comments: Patient is a 45-year-old F [place]ian female with past medical history of COPD and HIV who is presenting with respiratory distress. Patient apparently had gotten off of work and became more short of breath. States she had had a cough and some mild shortness of breath last several days but it worsened today. Paramedics arrived and stated that her O2 saturation on room air was in the mid 70s. Patient started on 5 albuterol and was given 125 mg of Solu-Medrol as well as 2 g of magnesium sulfate. On arrival the patient states that she is still having some shortness of breath. She states she has some tightness in the chest. Denies fevers chills body aches at this time. - Related Data Previous Rx's Medication Instructions Recorded Last Taken Type Acetaminophen [Acetaminophen TAB] 650 mg PO Q6H PRN tablet 10/30/20 Unknown Rx Ipratropium/Albuterol Sulfate 1 ampul IH Q4HRT ampul.neb 10/30/20 Unknown Rx [DUONEB *Not for PRN Use*] Magnesium Hydroxide [Milk of 30 ml PO Q4H PRN oral.liqd 10/30/20 Unknown Rx Magnesia] methylPREDNISolone Sod Suc 40 mg IV Q8HR vial 10/30/20 Unknown Rx [Solu-MEDROL] Allergies Allergy/AdvReac Type Severity Reaction Status Date / Time Penicillins Allergy Hives Verified 04/05/21 22:26 sulfamethoxazole Allergy Hives Verified 04/05/21 22:26 [From Bactrim] trimethoprim [From Bactrim] Allergy Hives Verified 04/05/21 22:26 ED Review of Systems ROS: Stated complaint: DIFF BREATHING Other details as noted in HPI Comment: All other systems reviewed and negative ED Past Medical Hx - Past Medical History Hx Congestive Heart Failure: No Hx Diabetes: No Hx COPD: Yes Hx HIV: Yes Additional medical history: COPD - Surgical History Additional Surgical History: Breast - Social History Smoking Status: Current Some Day Smoker - Medications Home Medications: Home Medications Medication Instructions Recorded Confirmed Last Taken Type Acetaminophen [Acetaminophen TAB] 650 mg PO Q6H PRN tablet 10/30/20 Unknown Rx Ipratropium/Albuterol Sulfate 1 ampul IH Q4HRT ampul.neb 10/30/20 Unknown Rx [DUONEB *Not for PRN Use*] Magnesium Hydroxide [Milk of 30 ml PO Q4H PRN oral.liqd 10/30/20 Unknown Rx Magnesia] methylPREDNISolone Sod Suc 40 mg IV Q8HR vial 10/30/20 Unknown Rx [Solu-MEDROL] ED Physical Exam - General Limitations: No Limitations General appearance: alert - Head Head exam: Present: atraumatic, normocephalic - Eye Eye exam: Present: normal appearance - ENT ENT exam: Present: mucous membranes moist - Neck Neck exam: Present: normal inspection - Respiratory Respiratory exam: Present: respiratory distress, wheezes, decreased breath sounds. Absent: normal lung sounds bilaterally - Cardiovascular Cardiovascular Exam: Present: regular rate, normal rhythm, normal heart sounds. Absent: systolic murmur, diastolic murmur, rubs, gallop - GI/Abdominal GI/Abdominal exam: Present: soft, normal bowel sounds. Absent: distended, tenderness, guarding, rebound - Extremities Exam Extremities exam: Present: normal inspection - Back Exam Back exam: Present: normal inspection - Neurological Exam Neurological exam: Present: alert, oriented X3 - Psychiatric Psychiatric exam: Present: normal affect, normal mood - Skin Skin exam: Present: warm, dry, intact, normal color. Absent: rash ED Course Vital Signs 04/05/21 22:59 Pulse Rate [ 89 Posterior] Respiratory 27 H Rate [Posterior ] ED Medical Decision Making - Lab Data Result diagrams: 04/05/21 23:37 04/05/21 23:37 - Radiology Data CHEST 1 VIEW 04/05/2021 10:05 PM INDICATION / CLINICAL INFORMATION: dyspnea. COMPARISON: 10/29/2020 FINDINGS: SUPPORT DEVICES: None. HEART / MEDIASTINUM: No significant abnormality. LUNGS / PLEURA: No significant pulmonary or pleural abnormality. No pneumothorax. ADDITIONAL FINDINGS: No significant additional findings. IMPRESSION: 1. No acute findings. Signer Name: Derik Keenan DO Signed: 04/05/2021 11:18 PM Workstation Name: [email or web address] - Medical Decision Making Patient is a [facility] patient and Dr. Combs with [facility] states that the patient should remain here in our emergency department and be admitted. Patient is D- dimer is elevated. GFR is low therefore we are unable to CT her safely at this time. VQ scan was been ordered however the the services not offered at night anymore. Patient given dose of Lovenox. After the her second hour-long treatment patient still has some wheezing and decreased breath sounds with some rhonchi. Chest x-ray is within normal limits. The pulmonary embolus is still very high on the differential. Was also waiting for the Covid testing. Critical care attestation.: If time is entered above; I have spent that time in minutes in the direct care of this critically ill patient, excluding procedure time. ED Disposition Clinical Impression: COPD exacerbation, Hypoxia, Elevated d-dimer Disposition: ADMITTED INPATIENT Is pt being admited?: Yes Does the pt Need Aspirin: No Condition: Stable Instructions: Chronic Obstructive Pulmonary Disease (ED) Time of Disposition: 01:24
[2021-04-06 02:35] LABS: C-Reactive Protein 1.6 mg/dL (0.00-1.30)
[2021-04-06] MEDS ORDERED: ACETAMINOPHEN 325 MG TAB PO PRN (03:59)
[2021-04-06] MEDS ORDERED: HYDROmorphone 1 MG/1 ML INJ IV PRN (03:59)
[2021-04-06] MEDS ORDERED: MORPHINE 2 MG/1 ML INJ IV PRN (03:59)
[2021-04-06] MEDS ORDERED: ALBUTEROL 2.5 MG/3 ML NEBU IH PRN (03:59)
[2021-04-06] MEDS ORDERED: ONDANSETRON 4 MG/2 ML INJ IV PRN (03:59)
[2021-04-06] MEDS ORDERED: MAGNESIUM HYDROXIDE (MOM) ORAL LIQD UDC PO PRN (04:02)
--- NOTE | 2021-04-06 04:07 | History and Physical Report ---
History of Present Illness Date of examination: 04/06/21 Date of admission: 04/06/21 01:24 Chief complaint: Dyspnea Spread to distress History of present illness: 45-year-old female with history of COPD and HIV was brought to the emergency room because of progressive respiratory distress. Patient apparently had gotten off of work and became more short of breath. States she had had a cough and some mild shortness of breath last several days but it worsened today. Paramedics arrived and stated that her O2 saturation on room air was in the mid 70s. Patient started on 5 albuterol and was given 125 mg of Solu-Medrol as well as 2 g of magnesium sulfate. On arrival the patient states that she is still having some shortness of breath. She states she has some tightness in the chest. Denies fevers chills body aches at this time. In the emergency room patient is found to have acute COPD exacerbation also patient D-dimer is 914.12 Patient is a [facility] patient and Dr. Combs with [facility] states that the patient should remain here in our emergency department and be admitted. Patient is D-dimer is elevated. GFR is low therefore we are unable to CT her safely at this time. VQ scan was been ordered however the the services not offered at night anymore. Patient given dose of Lovenox. After the her second hour-long treatment patient still has some wheezing and decreased breath sounds with some rhonchi. Chest x-ray is within normal limits. We also order for Covid test Past History Past Medical History: COPD, HIV/AIDS Medications and Allergies Allergies Allergy/AdvReac Type Severity Reaction Status Date / Time Penicillins Allergy Hives Verified 04/05/21 22:26 sulfamethoxazole Allergy Hives Verified 04/05/21 22:26 [From Bactrim] trimethoprim [From Bactrim] Allergy Hives Verified 04/05/21 22:26 Home Medications Medication Instructions Recorded Confirmed Last Taken Type Acetaminophen [Acetaminophen TAB] 650 mg PO Q6H PRN tablet 10/30/20 Unknown Rx Ipratropium/Albuterol Sulfate 1 ampul IH Q4HRT ampul.neb 10/30/20 Unknown Rx [DUONEB *Not for PRN Use*] Magnesium Hydroxide [Milk of 30 ml PO Q4H PRN oral.liqd 10/30/20 Unknown Rx Magnesia] methylPREDNISolone Sod Suc 40 mg IV Q8HR vial 10/30/20 Unknown Rx [Solu-MEDROL] Review of Systems All systems: negative Cardiovascular: shortness of breath, dyspnea on exertion Respiratory: cough, shortness of breath, dyspnea on exertion Exam - Constitutional Vitals: Temp Pulse Resp BP Pulse Ox 89 27 H 04/05/21 22:59 04/05/21 22:59 General appearance: Present: no acute distress, well-nourished - EENT Eyes: Present: PERRL ENT: hearing intact, clear oral mucosa - Neck Neck: Present: supple, normal ROM - Respiratory Respiratory effort: normal Respiratory: bilateral: diminished - Cardiovascular Heart Sounds: Present: S1 & S2. Absent: rub, click - Extremities Extremities: pulses symmetrical, No edema Peripheral Pulses: within normal limits - Abdominal General gastrointestinal: Present: soft, non-tender, non-distended, normal bowel sounds Female genitourinary: Present: normal - Integumentary Integumentary: Present: clear, warm, dry - Musculoskeletal Musculoskeletal: gait normal, strength equal bilaterally - Psychiatric Psychiatric: appropriate mood/affect, intact judgment & insight - Neurologic Neurologic: CNII-XII intact, moves all extremities Results - Labs CBC & Chem 7: 04/05/21 23:37 04/05/21 23:37 Labs: Laboratory Last Values WBC 3.2 K/mm3 (4.5-11.0) L 04/05/21 23:37 RBC 4.60 M/mm3 (3.65-5.03) 04/05/21 23:37 Hgb 11.7 gm/dl (10.1-14.3) 04/05/21 23:37 Hct 38.2 % (30.3-42.9) 04/05/21 23:37 MCV 83 fl (79-97) 04/05/21 23:37 MCH 26 pg (28-32) L 04/05/21 23:37 MCHC 31 % (30-34) 04/05/21 23:37 RDW 15.6 % (13.2-15.2) H 04/05/21 23:37 Plt Count 133 K/mm3 (140-440) L 04/05/21 23:37 Lymph % (Auto) 30.9 % (13.4-35.0) 04/05/21 23:37 [place] % (Auto) 4.5 % (0.0-7.3) 04/05/21 23:37 Eos % (Auto) 0.5 % (0.0-4.3) 04/05/21 23:37 Baso % (Auto) 0.4 % (0.0-1.8) 04/05/21 23:37 Lymph # (Auto) 1.0 K/mm3 (1.2-5.4) L 04/05/21 23:37 [place] # (Auto) 0.1 K/mm3 (0.0-0.8) 04/05/21 23:37 Eos # (Auto) 0.0 K/mm3 (0.0-0.4) 04/05/21 23:37 Baso # (Auto) 0.0 K/mm3 (0.0-0.1) 04/05/21 23:37 Seg Neutrophils % 63.7 % (40.0-70.0) 04/05/21 23:37 Seg Neutrophils # 2.0 K/mm3 (1.8-7.7) 04/05/21 23:37 D-Dimer 914.12 ng/mlDDU (0-234) H 04/05/21 23:37 Sodium 137 mmol/L (137-145) 04/05/21 23:37 Potassium 3.5 mmol/L (3.6-5.0) L 04/05/21 23:37 Chloride 98.9 mmol/L (98-107) 04/05/21 23:37 Carbon Dioxide 27 mmol/L (22-30) 04/05/21 23:37 Anion Gap 15 mmol/L 04/05/21 23:37 BUN 15 mg/dL (7-17) 04/05/21 23:37 Creatinine 2.2 mg/dL (0.6-1.2) H 04/05/21 23:37 Estimated GFR 29 ml/min 04/05/21 23:37 BUN/Creatinine Ratio 7 % 04/05/21 23:37 Glucose 105 mg/dL (65-100) H 04/05/21 23:37 Lactic Acid 1.40 mmol/L (0.7-2.0) 04/05/21 23:37 Calcium 11.8 mg/dL (8.4-10.2) H 04/05/21 23:37 Ferritin 2307.0 ng/mL (10.0-200.0) H 04/05/21 23:37 Total Bilirubin 0.20 mg/dL (0.1-1.2) 04/05/21 23:37 AST 42 units/L (5-40) H 04/05/21 23:37 ALT 8 units/L (7-56) 04/05/21 23:37 Alkaline Phosphatase 94 units/L (35-129) 04/05/21 23:37 Lactate Dehydrogenase 456 units/L (91-180) H 04/05/21 23:37 C-Reactive Protein 1.60 mg/dL (0.00-1.30) H 04/05/21 23:37 Total Protein 7.8 g/dL (6.3-8.2) 04/05/21 23:37 Albumin 3.4 g/dL (3.9-5) L 04/05/21 23:37 Albumin/Globulin Ratio 0.8 % 04/05/21 23:37 Microbiology: Microbiology 04/05/21 23:37 Peripheral/Venous Blood Culture - Preliminary Culture in Progress 04/05/21 23:29 Peripheral/Venous Blood Culture - Preliminary Culture in Progress - Imaging and Cardiology Chest x-ray: report reviewed Assessment and Plan VTE prophylaxis?: Chemical Plan of care discussed with patient/family: Yes - Patient Problems (1) Respiratory failure with hypoxia and hypercapnia Current Visit: No Status: Acute Plan to address problem: Admit the patient to the medical floor. Oxygen per nasal cannula 3 L/min. DuoNeb by nebulizer every 4 hours as needed. Albuterol via nebulizer every 4 hours as needed. Solu-Medrol 40 mg IV every 8 hours. Rocephin 2 g IV daily and Zithromax 500 IV daily. We will send the Covid test. Follow Covid inflammatory marker. We also do a VQ scan. If needed consult infectious disease or pul monary evaluation (2) COPD exacerbation Current Visit: Yes Status: Acute Plan to address problem: Oxygen per nasal cannula 3 L/min. DuoNeb by nebulizer every 4 hours as needed. Albuterol via nebulizer every 4 hours as needed. Solu-Medrol 40 mg IV every 8 hours. (3) Elevated d-dimer Current Visit: Yes Status: Acute Plan to address problem: Oxygen per nasal cannula 3 L/min. DuoNeb by nebulizer every 4 hours as needed. Albuterol via nebulizer every 4 hours as needed. We also do a VQ scan. (4) Hypoxia Current Visit: Yes Status: Acute Plan to address problem: Oxygen per nasal cannula 3 L/min. DuoNeb by nebulizer every 4 hours as needed. Albuterol via nebulizer every 4 hours as needed. Solu-Medrol 40 mg IV every 8 hours. (5) DVT prophylaxis Current Visit: No Status: Acute Plan to address problem: Heparin 5000 units subcu every 8 hours for DVT prophylaxis. Pepcid 20 mg p.o. twice daily for GI prophylaxis. (6) Full code status Current Visit: No Status: Acute Plan to address problem: Patient is a full code
[2021-04-06] MEDS ORDERED: methylPREDNISolone Sod Succinate 40 MG/1 ML INJ IV SCH (06:00)
[2021-04-06] MEDS ORDERED: cefTRIAXone/NS 2 GM/100 ML 2 GM/100 ML BAG IV SCH (06:00)
[2021-04-06] MEDS ORDERED: SODIUM CHLORIDE 0.9% 500 ML 500 ML IV ONE (06:43)
--- NOTE | 2021-04-06 07:11 | Nuclear Medicine Report ---
NUCLEAR MEDICINE PERFUSION LUNG SCAN INDICATION / CLINICAL INFORMATION: elevated ddimer, hypoxia. TECHNIQUE: 5.5 mCi of Tc-99m MAA were given by IV. COMPARISON: Chest radiograph dated 04/05/2021. FINDINGS: PERFUSION: There are several wedge-shaped peripheral defects noted throughout the lungs. ADDITIONAL FINDINGS: None. IMPRESSION: 1. Intermediate probability for pulmonary embolism. Signer Name: Derik Keenan DO Signed: 04/06/2021 7:06 AM Workstation Name: [id number]
[2021-04-06] MEDS: HEPARIN 5,000 UNIT/1 ML VIAL SUB-Q SCH ×2 (07:43→14:42)
[2021-04-06] MEDS: IPRATROPIUM/ALBUTEROL SULFATE 3 ML AMPUL.NEB IH SCH ×3 (07:43→17:16)
[2021-04-06] MEDS ORDERED: IPRATROPIUM/ALBUTEROL SULFATE 3 ML AMPUL.NEB IH SCH (08:00)
[2021-04-06] MEDS ORDERED: LACTATED RINGERS 1,000 ML IV ONE (08:28)
[2021-04-06] MEDS: FAMOTIDINE 20 MG TAB PO SCH (10:00)
[2021-04-06] MEDS ORDERED: AZITHROMYCIN/NS 500 MG/250 ML 500 MG/250 ML BAG IV SCH (10:00)
--- NOTE | 2021-04-06 14:38 | Event Note ---
Date: 04/06/21 The patient was seen and evaluated this morning, and she was found to be hemodynamically stable. The patient is currently requiring oxygen, and she is pending coronavirus PCR. Nephrology was also consulted in the setting of STEVE.
[2021-04-06] MEDS: LACTATED RINGERS 1,000 ML IV ONE ×2 (17:57→17:58)
[2021-04-06] MEDS ORDERED: AZITHROMYCIN 250 MG TAB PO SCH (22:00)
[2021-04-07] MEDS: HEPARIN 5,000 UNIT/1 ML VIAL SUB-Q SCH ×4 (00:01→22:07)
[2021-04-07 05:13] LABS: Hematocrit 33.8 % (30.3-42.9); Hemoglobin 10.4 gm/dl (10.1-14.3); Lymphocytes # (Auto) 0.6 K/mm3 (1.2-5.4); Lymphocytes % (Auto) 10.1 % (13.4-35.0); Mean Corpuscular HGB Conc 31 % (30-34); Mean Corpuscular Volume 83 fl (79-97); Monocytes # (Auto) 0.5 K/mm3 (0.0-0.8); Monocytes % (Auto) 9.7 % (0.0-7.3); Platelet Count 125 K/mm3 (140-440); Red Blood Count 4.05 M/mm3 (3.65-5.03); Red Cell Distribution Width 15.4 % (13.2-15.2)
[2021-04-07 05:33] LABS: C-Reactive Protein 0.5 mg/dL (0.00-1.30); Calcium 10.9 mg/dL (8.4-10.2)
[2021-04-07] MEDS ORDERED: SODIUM CHLORIDE 0.9% 500 ML 500 ML IV ONE (07:15)
[2021-04-07] MEDS ORDERED: LACTATED RINGERS 1,000 ML IV ONE ×2 (08:30→13:00)
[2021-04-07] MEDS: POTASSIUM CHLORIDE ER 20 MEQ TAB PO SCH ×2 (09:53→22:08)
[2021-04-07] MEDS: FAMOTIDINE 20 MG TAB PO SCH (09:53)
[2021-04-07] MEDS ORDERED: methylPREDNISolone Sod Succinate 40 MG/1 ML INJ IV SCH (10:00)
[2021-04-07] MEDS ORDERED: DOLUTEGRAVIR 50 MG, TENOFOVIR 300 MG, EMTRICITABINE 200 MG PO SCH (10:00)
[2021-04-07] MEDS: EMTRICITABINE 200 MG CAP PO SCH (11:51)
[2021-04-07] MEDS: TENOFOVIR 300 MG TAB PO SCH (11:51)
[2021-04-07] MEDS: DOLUTEGRAVIR 50 MG TAB PO SCH (11:51)
--- NOTE | 2021-04-07 12:10 | Progress Note ---
Assessment and Plan Assessment and plan: Patient is a 45-year-old female with history of COPD and HIV (currently on Biktarvy) who presented with progressive respiratory distress that was found to be secondary to COVID-19 pneumonia. #COVID-19 pneumonia #Acute hypoxic respiratory failure - etiology: COVID-19 infection - baseline oxygen requirements: None - supplemental oxygen: 2 L nasal cannula - Continue protocol: continue pulse oximetry, wean oxygen as tolerated, ordered incentive spirometry and educated patient on how to use it and its importance. -Continue steroids x10 days. Trend D-dimer, CRP, ferritin, LDH every 2-3 days. Continue contract and droplet precautions. -Infectious disease consulted for administration of remdesivir; pending recs. - continue to monitor #STEVE #Lactic acidosis -Creatinine 1.6 (baseline normalpreviously 1.8). Lactic acid 3.2 -Ordered 1 L bolus of lactated ringer -Pending repeat lactic acid -Continue to monitor creatinine with daily BMP #Hypokalemia -Potassium 3.3. Repleted. Monitor with repeat BMP in a.m. #HIV -Restarting daily Biktarvy #Advanced care planning -Disease education conducted, care plan discussed, diagnoses discussed, prognosis discussed, and patient acknowledges understanding with care plan -Time: +30 min Disposition Plan: Continue medical management Total Time Spent with Patient (Minutes): 45 minutes History Interval history: No acute event overnight. Hospitalist Physical - Constitutional Vitals: Temp Pulse Resp BP Pulse Ox 74 20 115/77 97 04/07/21 06:00 04/07/21 06:00 04/07/21 06:00 04/07/21 06:00 General appearance: Present: no acute distress, well-nourished - EENT Eyes: Present: PERRL, EOM intact ENT: hearing intact, clear oral mucosa, dentition normal - Neck Neck: Present: supple, normal ROM - Respiratory Respiratory effort: normal Respiratory: bilateral: diminished (On 2 L nasal cannula) - Cardiovascular Rhythm: regular Heart Sounds: Present: S1 & S2 - Extremities Extremities: no ischemia, pulses intact, pulses symmetrical, No edema, normal temperature, normal color, Full ROM Peripheral Pulses: within normal limits - Abdominal General gastrointestinal: soft, non-tender, non-distended, normal bowel sounds - Integumentary Integumentary: Present: clear, warm, dry - Psychiatric Psychiatric: appropriate mood/affect, intact judgment & insight, memory intact, cooperative - Neurologic Neurologic: CNII-XII intact, moves all extremities - Allied Health Allied health notes reviewed: nursing Results - Labs CBC & Chem 7: 04/07/21 04:00 04/07/21 04:00 Labs: Laboratory Last Values WBC 5.5 K/mm3 (4.5-11.0) 04/07/21 04:00 RBC 4.05 M/mm3 (3.65-5.03) 04/07/21 04:00 Hgb 10.4 gm/dl (10.1-14.3) 04/07/21 04:00 Hct 33.8 % (30.3-42.9) 04/07/21 04:00 MCV 83 fl (79-97) 04/07/21 04:00 MCH 26 pg (28-32) L 04/07/21 04:00 MCHC 31 % (30-34) 04/07/21 04:00 RDW 15.4 % (13.2-15.2) H 04/07/21 04:00 Plt Count 125 K/mm3 (140-440) L 04/07/21 04:00 Lymph % (Auto) 10.1 % (13.4-35.0) L 04/07/21 04:00 [place] % (Auto) 9.7 % (0.0-7.3) H 04/07/21 04:00 Eos % (Auto) 0.0 % (0.0-4.3) 04/07/21 04:00 Baso % (Auto) 0.0 % (0.0-1.8) 04/07/21 04:00 Lymph # (Auto) 0.6 K/mm3 (1.2-5.4) L 04/07/21 04:00 [place] # (Auto) 0.5 K/mm3 (0.0-0.8) 04/07/21 04:00 Eos # (Auto) 0.0 K/mm3 (0.0-0.4) 04/07/21 04:00 Baso # (Auto) 0.0 K/mm3 (0.0-0.1) 04/07/21 04:00 Seg Neutrophils % 80.2 % (40.0-70.0) H 04/07/21 04:00 Seg Neutrophils # 4.4 K/mm3 (1.8-7.7) 04/07/21 04:00 D-Dimer 596.89 ng/mlDDU (0-234) H 04/07/21 04:00 Sodium 143 mmol/L (137-145) 04/07/21 04:00 Potassium 3.3 mmol/L (3.6-5.0) L 04/07/21 04:00 Chloride 102.8 mmol/L (98-107) 04/07/21 04:00 Carbon Dioxide 27 mmol/L (22-30) 04/07/21 04:00 Anion Gap 17 mmol/L 04/07/21 04:00 BUN 14 mg/dL (7-17) 04/07/21 04:00 Creatinine 1.6 mg/dL (0.6-1.2) H 04/07/21 04:00 Estimated GFR 42 ml/min 04/07/21 04:00 BUN/Creatinine Ratio 9 % 04/07/21 04:00 Glucose 128 mg/dL (65-100) H 04/07/21 04:00 Lactic Acid 3.20 mmol/L (0.7-2.0) H* 04/07/21 04:00 Calcium 10.9 mg/dL (8.4-10.2) H 04/07/21 04:00 Phosphorus 2.30 mg/dL (2.5-4.5) L 04/07/21 04:00 Magnesium 1.70 mg/dL (1.7-2.3) 04/07/21 04:00 Ferritin 2709.0 ng/mL (10.0-200.0) H 04/07/21 04:00 Total Bilirubin 0.20 mg/dL (0.1-1.2) 04/05/21 23:37 AST 42 units/L (5-40) H 04/05/21 23:37 ALT 8 units/L (7-56) 04/05/21 23:37 Alkaline Phosphatase 94 units/L (35-129) 04/05/21 23:37 Lactate Dehydrogenase 355 units/L (91-180) H 04/07/21 04:00 C-Reactive Protein 0.50 mg/dL (0.00-1.30) 04/07/21 04:00 Total Protein 7.8 g/dL (6.3-8.2) 04/05/21 23:37 Albumin 3.4 g/dL (3.9-5) L 04/05/21 23:37 Albumin/Globulin Ratio 0.8 % 04/05/21 23:37 Procalcitonin 0.93 ng/mL (<0.15) 04/05/21 23:37 Coronavirus (PCR) Positive (Negative) A 04/06/21 Unknown Microbiology: Microbiology 04/05/21 23:37 Peripheral/Venous Blood Culture - Preliminary NO GROWTH AFTER 24 HOURS 04/05/21 23:29 Peripheral/Venous Blood Culture - Preliminary NO GROWTH AFTER 24 HOURS Active Medications - Current Medications Current Medications: Generic Name Dose Route Start Last Admin Trade Name Freq PRN Reason Stop Dose Admin Acetaminophen 650 mg 04/06/21 03:59 Acetaminophen 325 Mg Tab PO Q4H PRN Pain MILD(1-3)/Fever >100.5/CHATMAN Albuterol 2.5 mg 04/06/21 03:59 Albuterol 2.5 Mg/3 Ml Nebu IH Q4HRT PRN Shortness Of Breath Albuterol/Ipratropium 1 ampul 04/06/21 08:00 04/06/21 17:16 Ipratropium/Albuterol Sulfate 3 Ml Ampul.Neb IH 1 ampul Q4HRT KYAW Administration Emtricitabine 200 mg 04/07/21 12:00 04/07/21 11:51 Emtricitabine 200 Mg Cap PO 200 mg QDAY KYAW Administration Famotidine 20 mg 04/06/21 10:00 04/07/21 09:53 Famotidine 20 Mg Tab PO 20 mg QAM KYAW Administration Heparin Sodium (Porcine) 5,000 unit 04/06/21 06:00 04/07/21 06:32 Heparin 5,000 Unit/1 Ml Vial SUB-Q 5,000 unit Q8HR KYAW Administration Hydromorphone HCl 0.5 mg 04/06/21 03:59 Hydromorphone 1 Mg/1 Ml Inj IV Q3H PRN Pain , Severe (7-10) Magnesium Hydroxide 30 ml 04/06/21 04:02 Magnesium Hydroxide (Mom) Oral Liqd Udc PO Q4H PRN Constipation Methylprednisolone Sodium Succinate 40 mg 04/07/21 10:00 04/07/21 09:52 Methylprednisolone Sod Succinate 40 Mg/1 Ml Inj IV 40 mg DAILY KYAW Administration Morphine Sulfate 2 mg 04/06/21 03:59 Morphine 2 Mg/1 Ml Inj IV Q4H PRN Pain, Moderate (4-6) Ondansetron HCl 4 mg 04/06/21 03:59 Ondansetron 4 Mg/2 Ml Inj IV Q8H PRN Nausea And Vomiting Potassium Chloride 40 meq 04/07/21 10:00 04/07/21 09:53 Potassium Chloride Er 20 Meq Tab PO 04/07/21 22:01 40 meq BID KYAW Administration Sodium Chloride 10 ml 04/06/21 10:00 04/07/21 09:53 Sodium Chloride 0.9% 10 Ml Flush Syringe IV 10 ml BID KYAW Administration Sodium Chloride 10 ml 04/06/21 03:59 Sodium Chloride 0.9% 10 Ml Flush Syringe IV PRN PRN LINE FLUSH Tenofovir Disoproxil Fumarate 300 mg 04/07/21 12:00 04/07/21 11:51 Tenofovir 300 Mg Tab PO 300 mg QDAY KYAW Administration
[2021-04-07] MEDS: IPRATROPIUM/ALBUTEROL SULFATE 3 ML AMPUL.NEB IH SCH ×2 (14:20→22:40)
--- NOTE | 2021-04-07 16:54 | Consultation ---
History of Present Illness - Reason for Consult Consult date: 04/07/21 - History of Present Illness 45-year-old female past medical history COPD, HIV presented to hospital complaining of respiratory distress. She became short of breath prior to admission had cough with mild symptoms for the last few days but worsened on the day of admission. For her HIV she is on Biktarvy. Afebrile since admission with a white count 5.5. Covid positive. Decreased renal function, EGFR 42. Procalcitonin elevated 0.93. Blood cultures no growth so far. Currently on 3 L nasal cannula. Imaging personally reviewed: Chest x-ray: No acute findings V/Q scan intermediate probability for pulmonary embolism Review of systems: Deferred to reduce to the risk of transmission of COVID-19 Past History Past Medical History: COPD, HIV/AIDS Medications and Allergies Allergies Allergy/AdvReac Type Severity Reaction Status Date / Time Penicillins Allergy Hives Verified 04/05/21 22:26 sulfamethoxazole Allergy Hives Verified 04/05/21 22:26 [From Bactrim] trimethoprim [From Bactrim] Allergy Hives Verified 04/05/21 22:26 Home Medications Medication Instructions Recorded Confirmed Last Taken Type Biktarvy 50-200-25 mg Tablet 1 tab PO DAILY 04/06/21 04/06/21 04/05/21 History Fluconazole 100 mg PO DAILY 04/06/21 04/06/21 04/05/21 History Wixela 250-50 Inhub 1 puff PO BID 04/06/21 04/06/21 04/05/21 History Active Meds: Active Medications Acetaminophen (Acetaminophen 325 Mg Tab) 650 mg PO Q4H PRN PRN Reason: Pain MILD(1-3)/Fever >100.5/CHATMAN Albuterol (Albuterol 2.5 Mg/3 Ml Nebu) 2.5 mg IH Q4HRT PRN PRN Reason: Shortness Of Breath Albuterol/Ipratropium (Ipratropium/Albuterol Sulfate 3 Ml Ampul.Neb) 1 ampul IH Q4HRT [facility] Last Admin: 04/07/21 14:20 Dose: 1 ampul Documented by: Emtricitabine (Emtricitabine 200 Mg Cap) 200 mg PO QDAY [facility] Last Admin: 04/07/21 11:51 Dose: 200 mg Documented by: Famotidine (Famotidine 20 Mg Tab) 20 mg PO QAM [facility] Last Admin: 04/07/21 09:53 Dose: 20 mg Documented by: Heparin Sodium (Porcine) (Heparin 5,000 Unit/1 Ml Vial) 5,000 unit SUB-Q Q8HR [facility] Last Admin: 04/07/21 14:20 Dose: 5,000 unit Documented by: Hydromorphone HCl (Hydromorphone 1 Mg/1 Ml Inj) 0.5 mg IV Q3H PRN PRN Reason: Pain , Severe (7-10) Magnesium Hydroxide (Magnesium Hydroxide (Mom) Oral Liqd Udc) 30 ml PO Q4H PRN PRN Reason: Constipation Methylprednisolone Sodium Succinate (Methylprednisolone Sod Succinate 40 Mg/1 Ml Inj) 40 mg IV DAILY [facility] Last Admin: 04/07/21 09:52 Dose: 40 mg Documented by: Morphine Sulfate (Morphine 2 Mg/1 Ml Inj) 2 mg IV Q4H PRN PRN Reason: Pain, Moderate (4-6) Ondansetron HCl (Ondansetron 4 Mg/2 Ml Inj) 4 mg IV Q8H PRN PRN Reason: Nausea And Vomiting Potassium Chloride (Potassium Chloride Er 20 Meq Tab) 40 meq PO BID [facility] Stop: 04/07/21 22:01 Last Admin: 04/07/21 09:53 Dose: 40 meq Documented by: Sodium Chloride (Sodium Chloride 0.9% 10 Ml Flush Syringe) 10 ml IV BID [facility] Last Admin: 04/07/21 09:53 Dose: 10 ml Documented by: Sodium Chloride (Sodium Chloride 0.9% 10 Ml Flush Syringe) 10 ml IV PRN PRN PRN Reason: LINE FLUSH Tenofovir Disoproxil Fumarate (Tenofovir 300 Mg Tab) 300 mg PO QDAY [facility] Last Admin: 04/07/21 11:51 Dose: 300 mg Documented by: Physical Examination - Physical Exam Narrative exam: Physical exam deferred to reduce risk of transmission of COVID-19. Please refer to primary team's note. - Constitutional Vitals: Vital Signs Temp Pulse Resp BP Pulse Ox 74 20 147/94 99 04/07/21 06:00 04/07/21 06:00 04/07/21 15:25 04/07/21 15:25 Results - Labs CBC & Chem 7: 04/07/21 04:00 04/07/21 04:00 Labs: Abnormal lab results 04/06/21 04/07/21 04/07/21 Range/Units 20:17 04:00 04:00 MCH 26 L (28-32) pg RDW 15.4 H (13.2-15.2) % Plt Count 125 L (140-440) K/mm3 Lymph % (Auto) 10.1 L (13.4-35.0) % [place] % (Auto) 9.7 H (0.0-7.3) % Lymph # (Auto) 0.6 L (1.2-5.4) K/mm3 Seg Neutrophils % 80.2 H (40.0-70.0) % D-Dimer (0-234) ng/mlDDU Potassium (3.6-5.0) mmol/L Creatinine (0.6-1.2) mg/dL Glucose (65-100) mg/dL Lactic Acid 4.60 H* 3.20 H* (0.7-2.0) mmol/L Calcium (8.4-10.2) mg/dL Phosphorus (2.5-4.5) mg/dL Ferritin (10.0-200.0) ng/mL Lactate Dehydrogenase (91-180) units/L 04/07/21 04/07/21 04/07/21 Range/Units 04:00 04:00 04:00 MCH (28-32) pg RDW (13.2-15.2) % Plt Count (140-440) K/mm3 Lymph % (Auto) (13.4-35.0) % [place] % (Auto) (0.0-7.3) % Lymph # (Auto) (1.2-5.4) K/mm3 Seg Neutrophils % (40.0-70.0) % D-Dimer 596.89 H (0-234) ng/mlDDU Potassium 3.3 L (3.6-5.0) mmol/L Creatinine 1.6 H (0.6-1.2) mg/dL Glucose 128 H (65-100) mg/dL Lactic Acid (0.7-2.0) mmol/L Calcium 10.9 H (8.4-10.2) mg/dL Phosphorus 2.30 L (2.5-4.5) mg/dL Ferritin 2709.0 H (10.0-200.0) ng/mL Lactate Dehydrogenase 355 H (91-180) units/L Assessment and Plan Cultures: Blood culture no growth so far A/P: 45-year-old female past medical history HIV presented with: #Severe COVID-19 pneumonia: Patient presented with a week of symptoms, chest x- ray normal, admission O2 sats decreased on room air. Inflammatory markers elevated #Acute hypoxemic respiratory failure: Likely secondary to COVID-19 infection. Currently on 2L NC #HIV: On home Biktarvy. Not available here, will substitute emtricitabine, tenofovir, dolutegravir. #STEVE: Renally dose medications Recs: -Dexamethasone 6 mg IV/PO daily for 10 days -Remdesivir 200 mg IV q day x 1 followed by 100 mg IV q day x 4 days. Admitted with STEVE, closely monitored for worsening renal function. If CrCl less than 30mL/minute, please stop. -Obtain q48-72h inflammatory markers - ferritin, Ddimer, CRP, LDH -Continue after cefepime, tenofovir, dolutegravir -Check CD4, viral load. -Anticoagulation per hospital protocol -Proning as able Thank you for the consult, we will continue to follow. MD Jacobo [facility] O: [phone] F: [phone]
[2021-04-07] MEDS: guaiFENesin DM 200/20 MG ORAL LIQD 10 ML PO PRN (22:08)
[2021-04-08 00:12] LABS: Bilirubin,Urine NEG (Negative); Blood,Urine LG (Negative); Color,Urine Straw (Yellow); Urobilinogen,Urine < 2.0 mg/dL (<2.0)
[2021-04-08 00:13] LABS: RBC,Urine > 182.0 /HPF (0.0-6.0)
[2021-04-08] MEDS: HEPARIN 5,000 UNIT/1 ML VIAL SUB-Q SCH (05:44)
[2021-04-08 07:56] LABS: Basophils % (Auto) 0.1 % (0.0-1.8); Lymphocytes # (Auto) 0.8 K/mm3 (1.2-5.4); Lymphocytes % (Auto) 13.7 % (13.4-35.0); Mean Corpuscular HGB Conc 31 % (30-34); Mean Corpuscular Volume 82 fl (79-97); Monocytes # (Auto) 0.4 K/mm3 (0.0-0.8); Platelet Count 130 K/mm3 (140-440); Red Cell Distribution Width 16.3 % (13.2-15.2)
[2021-04-08 08:06] LABS: Hemoglobin 11.3 gm/dl (10.1-14.3)
[2021-04-08 08:19] LABS: Calcium 10.6 mg/dL (8.4-10.2)
[2021-04-08] MEDS: IPRATROPIUM/ALBUTEROL SULFATE 3 ML AMPUL.NEB IH SCH ×7 (09:37→14:13)
[2021-04-08] MEDS ORDERED: DEXAMETHASONE 4 MG TAB PO SCH (10:00)
[2021-04-08] MEDS ORDERED: REMDESIVIR 200 MG in SODIUM CHLORIDE 0.9% 250ML 250 ML IV ONE (10:00)
[2021-04-08] MEDS ORDERED: SODIUM CHLORIDE 0.9% 50 ML IVPB IV SCH (10:00)
[2021-04-08] MEDS: FAMOTIDINE 20 MG TAB PO SCH (10:25)
[2021-04-08] MEDS: guaiFENesin DM 200/20 MG ORAL LIQD 10 ML PO PRN (10:29)
--- NOTE | 2021-04-08 12:21 | Discharge Summary ---
Providers - Providers Date of Admission: 04/06/21 12:07 Date of discharge: 04/08/21 Attending physician: HOLLY HOLLAND MD 04/06/21 15:39 Consult to Physician [CONS] Routine Comment: Consulting Provider: BLANCA IRWIN Physician Instructions: Reason For Exam: COVID 19 pneumonia Primary care physician: [employer] Hospitalization Reason for admission: Acute hypoxic respiratory failure; STEVE Condition: Stable Pertinent studies: Reviewed. Procedures: None. Hospital course: Patient is a 45-year-old female with history of COPD and HIV (currently on Biktarvy) who presented with progressive respiratory distress that was found to be secondary to COVID-19 pneumonia. The patient was initiated on steroids and remdesivir per COVID-19 protocol. Patient was also found to have an STEVE with a creatinine of 1.8 on presentation in the setting of a lactic acid. The creatinine has since improved to 1.4, and the lactic acid is negative. It is presumed that the STEVE is secondary to COVID-19 infection. The patient was weaned off of 2 L nasal cannula to room air, and the patient is saturating at 95% while ambulating on room air. The patient was counseled about the importance of quarantining and completing oral steroids. The patient will quarantine until April 16, 2021. Patient expresses understanding. Patient is medically cleared for discharge. Disposition: 01 HOME / SELF CARE / HOMELESS Final Discharge Diagnosis (Prints w/discharge instructions): COVID-19 pneumonia, acute hypoxic respiratory failure, STEVE, lactic acidosis, hypokalemia, HIV, COPD Time spent for discharge: 45 min Core Measure Documentation - Palliative Care Palliative Care/ Comfort Measures: Not Applicable - Core Measures Any of the following diagnoses?: none Exam - Constitutional Vitals: Temp Pulse Resp BP Pulse Ox 97.3 F L 83 20 165/103 93 04/08/21 04:34 04/08/21 09:42 04/08/21 10:31 04/08/21 04:34 04/08/21 09:42 General appearance: Present: no acute distress, well-nourished - EENT Eyes: Present: PERRL, EOM intact ENT: hearing intact, clear oral mucosa, poor dentition - Neck Neck: Present: supple, normal ROM - Respiratory Respiratory effort: normal Respiratory: bilateral: diminished - Cardiovascular Rhythm: regular Heart Sounds: Present: S1 & S2 - Extremities Extremities: no ischemia, pulses intact, pulses symmetrical, normal temperature, normal color, Full ROM Peripheral Pulses: within normal limits - Abdominal General gastrointestinal: Present: soft, non-tender, non-distended, normal bowel sounds Female genitourinary: Present: deferred - Rectal Rectal Exam: deferred - Integumentary Integumentary: Present: clear, warm, dry - Musculoskeletal Musculoskeletal: strength equal bilaterally - Psychiatric Psychiatric: appropriate mood/affect, intact judgment & insight, cooperative - Neurologic Neurologic: CNII-XII intact, moves all extremities - Allied Health Allied health notes reviewed: nursing Plan Activity: advance as tolerated Diet: regular Care Plan Goals: Patient is medically cleared for discharge. Assessment: Patient is a 45-year-old female with history of COPD and HIV (currently on Biktarvy) who presented with progressive respiratory distress that was found to be secondary to COVID-19 pneumonia. The patient was initiated on steroids and remdesivir per COVID-19 protocol. Patient was also found to have an STEVE with a creatinine of 1.8 on presentation in the setting of a lactic acid. The creatinine has since improved to 1.4, and the lactic acid is negative. It is presumed that the STEVE is secondary to COVID-19 infection. The patient was weaned off of 2 L nasal cannula to room air, and the patient is saturating at 95% while ambulating on room air. The patient was counseled about the importance of quarantining and completing oral steroids. The patient will quarantine until April 16, 2021. Patient expresses understanding. Patient is medically cleared for discharge. Prescriptions: dexAMETHasone [Decadron] 4 mg PO DAILY #7 tablet
[2021-04-08 14:01] VITALS: BP 127/85
[2021-04-08] MEDS: EMTRICITABINE 200 MG CAP PO SCH (14:02)
[2021-04-08] MEDS: DOLUTEGRAVIR 50 MG TAB PO SCH (14:02)
[2021-04-08] MEDS: TENOFOVIR 300 MG TAB PO SCH (14:03)
[2021-04-09] MEDS ORDERED: REMDESIVIR 100 MG in SODIUM CHLORIDE 0.9% 250ML 250 ML IV SCH (21:00)
[2021-04-12 23:32] LABS: CD4/CD8 Ratio 0.07 (0.86-5.00)
== END 2021-04-08 14:43 | disposition home or self-care (01) | DRG 974 ==
LOC: ED 22:20 → 3A 04-06 01:24 → OBSVTOIN 04-06 12:07 → 3A 04-07 19:32
PROVIDERS: ADMIT Hospitalist; ATTEND Student in an Organized Health Care Education/Training Program
PROC: XW033E5 Introduction of Remdesivir Anti-infective into Peripheral Vein, Percutaneous Approach, New Technology Group 5 (ICD-10-PCS; principal; 2021-04-08)
DX: U07.1 COVID-19 (principal); J96.01 Acute respiratory failure with hypoxia; B20 Human immunodeficiency virus [HIV] disease; J12.82 Pneumonia due to coronavirus disease 2019; J44.1 Chronic obstructive pulmonary disease with (acute) exacerbation; N17.9 Acute kidney failure, unspecified; E87.2 Acidosis; F17.200 Nicotine dependence, unspecified, uncomplicated; E87.6 Hypokalemia
CPT/HCPCS: 36415; 71045; 78580; 80048; 80053; 81001; 82024; 82140; 82728; 83615; 83735; 84100; 84145; 85025; 85379; 86140; 87040; 87536; 94640; 94644; 99285; G0378; Q0162; A9540; J0456; J0696; J1644; J1650; J2270; J2920; J7030; J7040; J7050; J7120; J8540; U0003

== ENCOUNTER 2021-04-19 02:09 | Inpatient (IN) | payer OTHER ==
--- NOTE | 2021-04-19 06:21 | Emergency Department Report ---
ED General Adult HPI - General Chief complaint: Dyspnea/Respdistress Stated complaint: DIFFICULTY BREATHING PUI?: Yes Time Seen by Provider: 04/19/21 06:19 Source: patient, EMS ( EMS documentation not available at time of chart dictation ), RN notes reviewed, old records reviewed Mode of arrival: Stretcher Limitations: Physical Limitation - History of Present Illness Initial comments: The patient was evaluated in the emergency department for symptoms described in the history of present illness. He/she was evaluated in the context of the global COVID-19 pandemic, which necessitated consideration that the patient might be at risk for infection with the virus that causes COVID-19. Institutional protocols and algorithms that pertain to the evaluation of patients at risk for COVID-19 are in a state of rapid change based on information released by regulatory bodies including the CDC and federal and state organizations. These policies and algorithms were followed during the patient's care in the emergency department. Please note that these policies, procedures and recommendations changed on a rapid basis. Daily entire history and physical examination, and had a complete personal protective equipment. Primary CARE physician: Pradip physician Past medical history: COPD, not on home oxygen, HIV, currently on Biktarvy, recent diagnosis of COVID-19 pneumonia, today is her last day of quarantine, also history of renal insufficiency. The patient is a 46-year-old female who presents to the ER with a complaint of 4 days of cough, chest wall pain, congestion, mucus production, nausea, malaise and fatigue. She reports onset of cough and mucus production 4 days ago. She then developed central and right-sided chest pain yesterday. She called 911 because she was feeling short of breath and weak. Reports relief with aspirin and nitroglycerin. No recent cardiac or stratification that she is aware of. Reports that she is supposed to follow-up with outpatient providers within the [facility] network, both pulmonology and cardiology. Besides the past 24 hours, no recent aspirin administration. Not having significant pain at this time, but rather dyspneic. Recently admitted to this hospital for COPD exacerbation, COVID-pneumonia, renal insufficiency, and had a low probability nuclear medicine study for pulmonary embolism. -: Gradual, days(s) Location: chest Radiation: non-radiation Severity scale (0 -10): 0 Consistency: constant Improves with: rest Worsens with: other (Movement, coughing, palpation) - Related Data Home Medications Medication Instructions Recorded Confirmed Last Taken Biktarvy 50-200-25 mg Tablet 1 tab PO DAILY 04/06/21 04/08/21 04/05/21 Fluconazole 100 mg PO DAILY 04/06/21 04/08/21 04/05/21 Wixela 250-50 Inhub 1 puff PO BID 04/06/21 04/08/21 04/05/21 Previous Rx's Medication Instructions Recorded Last Taken Type dexAMETHasone [Decadron] 4 mg PO DAILY #7 tablet 04/08/21 Unknown Rx Allergies Allergy/AdvReac Type Severity Reaction Status Date / Time Penicillins Allergy Hives Verified 04/05/21 22:26 sulfamethoxazole Allergy Hives Verified 04/05/21 22:26 [From Bactrim] trimethoprim [From Bactrim] Allergy Hives Verified 04/05/21 22:26 ED Review of Systems ROS: Stated complaint: DIFFICULTY BREATHING Other details as noted in HPI Constitutional: malaise Eyes: denies: eye discharge ENT: congestion Respiratory: cough, shortness of breath, SOB with exertion, SOB at rest, wheezing Cardiovascular: chest pain Gastrointestinal: denies: abdominal pain Genitourinary: denies: dysuria Musculoskeletal: denies: back pain Neurological: weakness ED Past Medical Hx - Past Medical History Hx Congestive Heart Failure: No Hx Diabetes: No Hx COPD: Yes Hx HIV: Yes Additional medical history: COPD - Surgical History Additional Surgical History: Breast - Social History Smoking Status: Former Smoker - Medications Home Medications: Home Medications Medication Instructions Recorded Confirmed Last Taken Type Biktarvy 50-200-25 mg Tablet 1 tab PO DAILY 04/06/21 04/08/21 04/05/21 History Fluconazole 100 mg PO DAILY 04/06/21 04/08/21 04/05/21 History Wixela 250-50 Inhub 1 puff PO BID 04/06/21 04/08/21 04/05/21 History dexAMETHasone [Decadron] 4 mg PO DAILY #7 tablet 04/08/21 Unknown Rx ED Physical Exam - General Limitations: Physical Limitation General appearance: alert, anxious, in distress - Head Head exam: Present: atraumatic, normocephalic - Eye Eye exam: Present: normal appearance, EOMI. Absent: nystagmus - ENT ENT exam: Present: normal exam, normal orophraynx, mucous membranes dry, normal external ear exam, other (The patient has poor dentition) - Neck Neck exam: Present: normal inspection, full ROM. Absent: tenderness, meningismus - Respiratory Respiratory exam: Present: respiratory distress, chest wall tenderness, other (Pulmonary auscultation not performed secondary to lack of disposable stethoscope). Absent: stridor - Cardiovascular Cardiovascular Exam: Present: other (Cardiac auscultation not performed secondary to lack of disposable stethoscope) - GI/Abdominal GI/Abdominal exam: Present: soft. Absent: distended, tenderness, guarding, rebound, rigid, pulsatile mass - Extremities Exam Extremities exam: Present: full ROM, pedal edema (1+ edema noted in the bilateral lower extremities), other (2+ pulses noted in the bilateral upper and lower extremities. There is no palpable cord. negative Homans sign. Muscular compartments are soft. The pelvis is stable.). Absent: normal inspection (Chronic venous stasis changes noted in the bilateral lower extremities), calf tenderness - Back Exam Back exam: Present: normal inspection, full ROM. Absent: tenderness, CVA tenderness (R), CVA tenderness (L), paraspinal tenderness, vertebral tenderness - Neurological Exam Neurological exam: Present: alert, other (No facial droop. Tongue midline. Extraocular movements intact bilaterally. Facial sensation intact to light touch in V1, V2, V3 distribution bilaterally. 5 and a 5 strength in 4 extr emities. Sensation intact to light touch in 4 extremities.). Absent: motor sensory deficit - Psychiatric Psychiatric exam: Present: anxious - Skin Skin exam: Present: warm, dry, intact. Absent: rash ED Course Vital Signs 04/19/21 04/19/21 02:54 07:42 Temperature 98.4 F Pulse Rate 112 H Pulse Rate [ 125 H Bilateral] Respiratory 18 Rate Respiratory 20 Rate [Bilateral ] Blood Pressure 159/105 [Left] O2 Sat by Pulse 97 Oximetry - Reevaluation(s) Reevaluation #1: 04/19/21 07:00 Differential diagnosis, including but not limited to: COPD exacerbation, pneumonia, pneumothorax, pulmonary embolism, acute coronary syndrome, COVID long-haul, costochondritis Assessment and plan: 46-year-old female, with history of HIV, COPD, recent diagnosis of COVID-19, presenting with chest pain, cough, and shortness of breath as well as mucus production. Suspect COPD exacerbation. However, given multiple chronic medical issues, recent hospitalization, recent diagnosis of COVID, risk factors for cardiovascular disease (HIV, COVID-19), patient will require further restratification for acute coronary syndrome as well as pulmonary embolism. Placed this patient on detective supervisor, obtain appropriate laboratory studies, EKG, x-ray of the chest, treat symptoms with nitroglycerin, Pepcid, initiate albuterol, Atrovent and steroids. Discussed with [facility] facility home once initial diagnostics have resulted. Patient currently on 2 L of oxygen. As per review of her old medical records, has required 2 L of oxygen. 04/19/21 12:44 Patient is reevaluated. She states that she feels essentially the same. Laboratory studies, x-ray of the chest, and CT scan chest are reviewed and appreciated. I suspect that this patient has a COPD exacerbation with costochondritis, with possible superimposed component of COVID long-haul her. Have received verbal communication from the ER administrative leadership that the hospital is currently full, and we are currently instructed to transfer all noncritical patients out of this hospital/emergency room. In addition, this patient is a [facility] patient. Have therefore reached out to [facility] physician, Dr. Tucker. Discussed the patient's history, physical, laboratory studies and imaging studies and clinical impression. [facility] will arrange for transfer to [facility] [place], with accepting physician being Dr. Rodriguez They have advised that it may take a few hours to obtain a bed. I did discuss this with the patient, and she is agreeable to waiting. Holding orders are placed/as needed orders are initiated. Patient has home medications on her, including Biktarvy, fluconazole, and wixela Have reviewed these medications, we will continue them, I also reached out to the pharmacy, discussed the need for the patient to continue her home medications. The pharmacy requested the patient's medications to be sent to them, so they can evaluate, and apply their own label. Have therefore placed a communication order for nursing team to take the patient's medications to the pharmacy, affix a label, and then return to the patient. 04/19/21 14:59 Patient reassessed. Resting comfortably. Care be transferred to the oncoming ER physician to follow-up on troponin and repeat EKG, pending transfer. ED Medical Decision Making - Lab Data Result diagrams: 04/19/21 06:58 04/19/21 06:58 Vital Signs 04/19/21 02:54 Temperature 98.4 F Pulse Rate 112 H Respiratory 18 Rate Blood Pressure 159/105 [Left] O2 Sat by Pulse 97 Oximetry Lab Results 04/19/21 04/19/21 04/19/21 Range/Units 06:58 06:58 06:58 WBC 7.5 (4.5-11.0) K/mm3 RBC 4.64 (3.65-5.03) M/mm3 Hgb 11.9 (10.1-14.3) gm/dl Hct 38.4 (30.3-42.9) % MCV 83 (79-97) fl MCH 26 L (28-32) pg MCHC 31 (30-34) % RDW 16.2 H (13.2-15.2) % Plt Count 161 (140-440) K/mm3 Add Manual Diff Complete Total Counted 100 Seg Neuts % (Manual) 76.0 H (40.0-70.0) % Band Neutrophils % 1.0 % Lymphocytes % (Manual) 16.0 (13.4-35.0) % Reactive Lymphs % (Man) 2.0 % Monocytes % (Manual) 1.0 (0.0-7.3) % Eosinophils % (Manual) 1.0 (0.0-4.3) % Basophils % (Manual) 1.0 (0.0-1.8) % Metamyelocytes % 2.0 % Myelocytes % 0 % Promyelocytes % 0 % Blast Cells % 0 % Nucleated RBC % Not Reportable Seg Neutrophils # Man 5.7 (1.8-7.7) K/mm3 Band Neutrophils # 0.1 K/mm3 Lymphocytes # (Manual) 1.2 (1.2-5.4) K/mm3 Abs React Lymphs (Man) 0.2 K/mm3 Monocytes # (Manual) 0.1 (0.0-0.8) K/mm3 Eosinophils # (Manual) 0.1 (0.0-0.4) K/mm3 Basophils # (Manual) 0.1 (0.0-0.1) K/mm3 Metamyelocytes # 0.2 K/mm3 Myelocytes # 0.0 K/mm3 Promyelocytes # 0.0 K/mm3 Blast Cells # 0.0 K/mm3 WBC Morphology Not Reportable Hypersegmented Neuts Not Reportable Hyposegmented Neuts Not Reportable Hypogranular Neuts Not Reportable Smudge Cells Not Reportable Toxic Granulation Not Reportable Toxic Vacuolation Not Reportable Dohle Bodies Not Reportable Pelger-Huet Anomaly Not Reportable Sara Rods Not Reportable Platelet Estimate Consistent w auto Clumped Platelets Not Reportable Plt Clumps, EDTA Not Reportable Large Platelets Not Reportable Giant Platelets Not Reportable Platelet Satelliting Not Reportable Plt Morphology Comment Not Reportable RBC Morphology Not Reportable Dimorphic RBCs Not Reportable Polychromasia Not Reportable Hypochromasia 1+ Poikilocytosis Not Reportable Anisocytosis 1+ Microcytosis Not Reportable Macrocytosis Not Reportable Spherocytes Not Reportable Pappenheimer Bodies Not Reportable Sickle Cells Not Reportable Target Cells Not Reportable Tear Drop Cells Not Reportable Ovalocytes Not Reportable Helmet Cells Not Reportable [place] Bodies Not Reportable Battiest Rings Not Reportable Agra Cells Not Reportable Bite Cells Not Reportable Crenated Cell Not Reportable Elliptocytes Not Reportable Acanthocytes (Spur) Not Reportable Rouleaux Not Reportable Hemoglobin C Crystals Not Reportable Schistocytes Not Reportable Malaria parasites Not Reportable Margarito Bodies Not Reportable Hem Pathologist Commnt No PT 13.3 (12.2-14.9) Sec. INR 0.91 (0.87-1.13) D-Dimer 876.04 H (0-234) ng/mlDDU Sodium 144 (137-145) mmol/L Potassium 3.6 (3.6-5.0) mmol/L Chloride 104.3 (98-107) mmol/L Carbon Dioxide 28 (22-30) mmol/L Anion Gap 15 mmol/L BUN 11 (7-17) mg/dL Creatinine 1.3 H (0.6-1.2) mg/dL Estimated GFR 53 ml/min BUN/Creatinine Ratio 8 % Glucose 95 (65-100) mg/dL Lactic Acid (0.7-2.0) mmol/L Calcium 8.9 (8.4-10.2) mg/dL Magnesium 1.50 L (1.7-2.3) mg/dL Total Bilirubin 0.30 (0.1-1.2) mg/dL AST 30 (5-40) units/L ALT 15 (7-56) units/L Alkaline Phosphatase 83 (35-129) units/L Troponin T < 0.010 (0.00-0.029) ng/mL Total Protein 6.3 (6.3-8.2) g/dL Albumin 3.4 L (3.9-5) g/dL Albumin/Globulin Ratio 1.2 % 04/19/21 Range/Units 06:58 WBC (4.5-11.0) K/mm3 RBC (3.65-5.03) M/mm3 Hgb (10.1-14.3) gm/dl Hct (30.3-42.9) % MCV (79-97) fl MCH (28-32) pg MCHC (30-34) % RDW (13.2-15.2) % Plt Count (140-440) K/mm3 Add Manual Diff Total Counted Seg Neuts % (Manual) (40.0-70.0) % Band Neutrophils % % Lymphocytes % (Manual) (13.4-35.0) % Reactive Lymphs % (Man) % Monocytes % (Manual) (0.0-7.3) % Eosinophils % (Manual) (0.0-4.3) % Basophils % (Manual) (0.0-1.8) % Metamyelocytes % % Myelocytes % % Promyelocytes % % Blast Cells % % Nucleated RBC % Seg Neutrophils # Man (1.8-7.7) K/mm3 Band Neutrophils # K/mm3 Lymphocytes # (Manual) (1.2-5.4) K/mm3 Abs React Lymphs (Man) K/mm3 Monocytes # (Manual) (0.0-0.8) K/mm3 Eosinophils # (Manual) (0.0-0.4) K/mm3 Basophils # (Manual) (0.0-0.1) K/mm3 Metamyelocytes # K/mm3 Myelocytes # K/mm3 Promyelocytes # K/mm3 Blast Cells # K/mm3 WBC Morphology Hypersegmented Neuts Hyposegmented Neuts Hypogranular Neuts Smudge Cells Toxic Granulation Toxic Vacuolation Dohle Bodies Pelger-Huet Anomaly Sara Rods Platelet Estimate Clumped Platelets Plt Clumps, EDTA Large Platelets Giant Platelets Platelet Satelliting Plt Morphology Comment RBC Morphology Dimorphic RBCs Polychromasia Hypochromasia Poikilocytosis Anisocytosis Microcytosis Macrocytosis Spherocytes Pappenheimer Bodies Sickle Cells Target Cells Tear Drop Cells Ovalocytes Helmet Cells [place] Bodies Battiest Rings Mary Cells Bite Cells Crenated Cell Elliptocytes Acanthocytes (Spur) Rouleaux Hemoglobin C Crystals Schistocytes Malaria parasites Margarito Bodies Hem Pathologist Commnt PT (12.2-14.9) Sec. INR (0.87-1.13) D-Dimer (0-234) ng/mlDDU Sodium (137-145) mmol/L Potassium (3.6-5.0) mmol/L Chloride (98-107) mmol/L Carbon Dioxide (22-30) mmol/L Anion Gap mmol/L BUN (7-17) mg/dL Creatinine (0.6-1.2) mg/dL Estimated GFR ml/min BUN/Creatinine Ratio % Glucose (65-100) mg/dL Lactic Acid 2.00 (0.7-2.0) mmol/L Calcium (8.4-10.2) mg/dL Magnesium (1.7-2.3) mg/dL Total Bilirubin (0.1-1.2) mg/dL AST (5-40) units/L ALT (7-56) units/L Alkaline Phosphatase (35-129) units/L Troponin T (0.00-0.029) ng/mL Total Protein (6.3-8.2) g/dL Albumin (3.9-5) g/dL Albumin/Globulin Ratio % - EKG Data -: EKG Interpreted by Wi EKG shows normal: sinus rhythm Rate: tachycardia - EKG Data 04/19/21 07:58 The EKG is interpreted at 07: 5 0 Sinus rhythm, tachycardic, rate 109 bpm. Normal axis, normal P wave axis, normal intervals, motion artifact. No STEMI. Atrial enlargement is noted. - Radiology Data Radiology results: pending, report reviewed, image reviewed CHEST 2 VIEWS INDICATION: Dyspnea. COMPARISON: 04/05/2021 FINDINGS: Support devices: None. Heart: Within normal limits. Lungs/pleura: No acute air space or interstitial disease. No pneumothorax. Mild to moderate emphysematous changes in the upper lung zones is suspected. Additional findings: None. IMPRESSION: No acute process or change since 03/28/2021. Mild emphysematous changes are suspected. Signer Name: Rohit Gant Jr, MD Signed: 04/19/2021 7:17 AM Workstation Name: [id number] CTA CHEST WITH CONTRAST INDICATION : acute cp, dyspnea 100 ML OMNI 350 . TECHNIQUE: Axial imaging performed through the chest, with contrast bolus timing set to maximize opacification of the pulmonary arteries. Sagittal and coronal reformatted images. 3-plane MIP reformatted images were obtained. All CT scans at this location are performed using CT dose reduction for ALARA by means of automated exposure control. 100 mL of intravenous contrast administered. COMPARISON: 10/29/2020 FINDINGS: Bolus: Contrast bolus timing is slightly abad ited with poor opacification of the distal, small pulmonary arteries. PTE: No large central pulmonary embolus is detected. Mediastinum: Heart and great vessels appear normal. No pathologic mediastinal adenopathy. Lungs: Mild segmental atelectasis is noted in the anterior left lower lobe. Otherwise the lungs are clear. No evidence for acute infiltrate, pleural effusion or pneumothorax. Bones: Degenerative changes in the spine with nothing acute. Upper abdomen: Limited imaging of the upper abdomen shows nothing acute. Additional findings: Prior silicone injections in both breasts are again noted and not significantly changed. IMPRESSION: No pulmonary embolus is detected, however, there is poor opacification of the distal small pulmonary arteries. Minor segmental atelectasis in the left lower lobe. The lungs are clear otherwise. Signer Name: Rohit Gant Jr, MD Signed: 04/19/2021 10:15 AM Workstation Name: [id number] Critical care attestation.: If time is entered above; I have spent that time in minutes in the direct care of this critically ill patient, excluding procedure time. ED Disposition Clinical Impression: COPD exacerbation, History of HIV or AIDS, Acute chest pain, Hypomagnesemia, COVID-19 long [facility] Disposition: 02 SHORT TERM HOSPITAL Is pt being admited?: No Does the pt Need Aspirin: No (asa given by ems) Condition: Good Instructions: Chest Pain (ED), Chronic Obstructive Pulmonary Disease (ED) Referrals: [facility] [Other] - 3-5 Days Heart Score - HEART Score History: Moderately suspicious EKG: Non-specific Age: 45-65 Risk factors: 1-2 risk factors Troponin: < normal limit HEART Score: 4 - EKG Read Time Time EKG Completed: 07:50 EKG Read Time: 07:50 - Critical Actions Critical Actions: 4-6 pts:12-16.6% risk of adverse cardiac event. Should be admitted
[2021-04-19] MEDS ORDERED: IPRATROPIUM 0.02% NEBU 2.5 ML IH ONE (06:50)
[2021-04-19] MEDS ORDERED: ALBUTEROL 2.5 MG/3 ML NEBU IH ONE (06:50)
[2021-04-19] MEDS ORDERED: SODIUM CHLORIDE 0.9% 500 ML 500 ML IV ONE (06:50)
[2021-04-19] MEDS ORDERED: methylPREDNISolone Sod Succinate 125 MG/2 ML INJ IV ONE (06:50)
[2021-04-19] MEDS ORDERED: NITROGLYCERIN 0.4 MG TAB SUBL SL PRN ×2 (06:51→22:02)
[2021-04-19] MEDS ORDERED: FAMOTIDINE 20 MG/2 ML INJ IV ONE (06:51)
[2021-04-19 07:55] LABS: Hematocrit 38.4 % (30.3-42.9); Hemoglobin 11.9 gm/dl (10.1-14.3); Mean Corpuscular HGB Conc 31 % (30-34); Mean Corpuscular Volume 83 fl (79-97); Platelet Count 161 K/mm3 (140-440); Red Blood Count 4.64 M/mm3 (3.65-5.03); Red Cell Distribution Width 16.2 % (13.2-15.2)
[2021-04-19 08:03] LABS: Alanine Aminotransferase 15 units/L (7-56); Albumin 3.4 g/dL (3.9-5); BUN/Creatinine Ratio 8; Blood Urea Nitrogen 11 mg/dL (7-17); Calcium 8.9 mg/dL (8.4-10.2); Hemolysis Index 13
[2021-04-19] MEDS ORDERED: MAGNESIUM OXIDE 400 MG TAB PO STA (08:05)
[2021-04-19 08:06] LABS: INR 0.91 (0.87-1.13)
--- NOTE | 2021-04-19 08:21 | XRay Report ---
CHEST 2 VIEWS INDICATION: Dyspnea. COMPARISON: 04/05/2021 FINDINGS: Support devices: None. Heart: Within normal limits. Lungs/pleura: No acute air space or interstitial disease. No pneumothorax. Mild to moderate emphysem atous changes in the upper lung zones is suspected. Additional findings: None. IMPRESSION: No acute process or change since 03/28/2021. Mild emphysematous changes are suspected. Signer Name: Rohit Gant Jr, MD Signed: 04/19/2021 8:17 AM Workstation Name: [id number]
[2021-04-19 08:34] LABS: Anisocytosis 1+; Band Neutrophils # (Manual) 0.1 K/mm3; Hypochromasia 1+; Total Cells Counted 100
[2021-04-19 08:35] LABS: Platelet Estimate Consistent w Auto
--- NOTE | 2021-04-19 10:07 | Electrocardiograph Report ---
[facility] Test Date: 2021-04-19 Test Time: 07:50:57 Pat Name: ELIZA AMARO Department: Room: Gender: F Aerial Lineman: TEN GARCIAB: 1975 Requested By: DEON RODRÍGUEZ Order Number: [id number] Reading MD: Kenton Treviño Measurements Intervals [place] Rate: 109 P: 77 ND: 121 QRS: 71 QRSD: 76 T: -85 QT: 322 QTc: 433 Interpretive Statements Sinus tachycardia Compared to ECG 10/30/2020 00:30:31 Rate is faster,otherwise no significant change noted. Electronically Signed On 04-19-2021 10:07:39 EST by Kenton Treviño
--- NOTE | 2021-04-19 11:20 | Cat Scan Report ---
CTA CHEST WITH CONTRAST INDICATION : acute cp, dyspnea 100 ML OMNI 350 . TECHNIQUE: Axial imaging performed through the chest, with contrast bolus timing set to maximize opa cification of the pulmonary arteries. Sagittal and coronal reformatted images. 3-plane MIP reformatte d images were obtained. All CT scans at this location are performed using CT dose reduction for ALAR A by means of automated exposure control. 100 mL of intravenous contrast administered. COMPARISON: 10/29/2020 FINDINGS: Bolus: Contrast bolus timing is slightly limited with poor opacification of the distal, small pulmon deya arteries. PTE: No large central pulmonary embolus is detected. Mediastinum: Heart and great vessels appear normal. No pathologic mediastinal adenopathy. Lungs: Mild segmental atelectasis is noted in the anterior left lower lobe. Otherwise the lungs are clear. No evidence for acute infiltrate, pleural effusion or pneumothorax. Bones: Degenerative changes in the spine with nothing acute. Upper abdomen: Limited imaging of the upper abdomen shows nothing acute. Additional findings: Prior silicone injections in both breasts are again noted and not significantly changed. IMPRESSION: No pulmonary embolus is detected, however, there is poor opacification of the distal small pulmonary arteries. Minor segmental atelectasis in the left lower lobe. The lungs are clear otherwise. Signer Name: Rohit Gant Jr, MD Signed: 04/19/2021 11:15 AM Workstation Name: [id number]
[2021-04-19] MEDS ORDERED: ONDANSETRON 4 MG ODT TAB PO PRN (12:39)
[2021-04-19] MEDS ORDERED: ALBUTEROL 2.5 MG/3 ML NEBU IH PRN (12:39)
[2021-04-19] MEDS ORDERED: IPRATROPIUM 0.02% NEBU 2.5 ML IH PRN (12:39)
[2021-04-19] MEDS ORDERED: ACETAMINOPHEN 325 MG TAB PO PRN ×2 (12:39→22:02)
[2021-04-19] MEDS ORDERED: FLUCONAZOLE 100 MG PO SCH (12:45)
[2021-04-19] MEDS ORDERED: WIXELA PO SCH (12:45)
[2021-04-19] MEDS ORDERED: NON-FORMULARY EACH (Biktarvy 50-200-25 Mg Tablet 1 TAB) PO SCH (12:45)
[2021-04-19] MEDS ORDERED: methylPREDNISolone Sod Succinate 125 MG/2 ML INJ IV SCH (13:00)
[2021-04-19] MEDS ORDERED: methylPREDNISolone Sod Succinate 125 MG/2 ML INJ ONE (20:02)
--- NOTE | 2021-04-19 22:12 | History and Physical Report ---
History of Present Illness Date of examination: 04/19/21 Date of admission: 04/19/21 21:19 Chief complaint: Dyspnea, respiratory distress Chest pain History of present illness: 46-year-old female with past medical history of COPD, HIV, COVID-19 pneumonia today is her last day of quarantine and also history of renal insufficiency was brought to the hospital because of 4 days of cough, chest wall pain, congestion, mucus production, nausea, malaise and fatigue. Patient complain onset of cough and mucus production 4 days ago. She then developed central and right-sided chest pain yesterday. She called 911 because she was feeling short of breath and weak. Patient gets relief with aspirin and nitroglycerin. No recent cardiac or stratification that she is aware of. Reports that she is supposed to follow-up with outpatient providers within the [place] network, both pulmonology and cardiology. Besides the past 24 hours, no recent aspirin administration. Not having significant pain at this time, but rather dyspneic. Recently admitted to this hospital for COPD exacerbation, COVID-pneumonia, renal insufficiency, and had a low probability nuclear medicine study for pulmonary embolism. In the emergency room initial cardiac enzyme is negative troponin is 0.010, chest CTA shows no PE. Going to admit the patient. We will put the patient on chest pain pathway we do the serial cardiac enzymes we will also do echocardiogram Past History Past Medical History: COPD, renal failure, other (HIV, COVID-19 pneumonia) Medications and Allergies Allergies Allergy/AdvReac Type Severity Reaction Status Date / Time Penicillins Allergy Hives Verified 04/05/21 22:26 sulfamethoxazole Allergy Hives Verified 04/05/21 22:26 [From Bactrim] trimethoprim [From Bactrim] Allergy Hives Verified 04/05/21 22:26 Home Medications Medication Instructions Recorded Confirmed Last Taken Type Biktarvy 50-200-25 mg Tablet 1 tab PO DAILY 04/06/21 04/08/21 04/05/21 History Fluconazole 100 mg PO DAILY 04/06/21 04/08/21 04/05/21 History Wixela 250-50 Inhub 1 puff PO BID 04/06/21 04/08/21 04/05/21 History dexAMETHasone [Decadron] 4 mg PO DAILY #7 tablet 04/08/21 Unknown Rx Active Meds: Active Medications Acetaminophen (Acetaminophen 325 Mg Tab) 650 mg PO Q6HR PRN PRN Reason: PAIN Albuterol (Albuterol 2.5 Mg/3 Ml Nebu) 2.5 mg IH PRN PRN PRN Reason: Wheezing Aspirin (Aspirin 81 Mg Tab Chew) 81 mg PO QDAY [facility] Stop: 04/24/21 10:01 Doxycycline Hyclate (Doxycycline 100 Mg Cap) 100 mg PO BID [facility]; Protocol Stop: 04/23/21 22:01 Ipratropium [place] (Ipratropium 0.02% Nebu 2.5 Ml) 0.5 mg IH Q4HR PRN PRN Reason: Wheezing Magnesium Oxide (Magnesium Oxide 400 Mg Tab) 400 mg PO QDAY [facility] Stop: 04/24/21 10:01 Methylprednisolone Sodium Succinate (Methylprednisolone Sod Succinate 125 Mg/2 Ml Inj) 40 mg IV ONCE [facility] Stop: 04/22/21 12:59 Miscellaneous Medication (Biktarvy 50-200-25 Tablet) 1 each PO DAILY [facility] Miscellaneous Medication (Wixela 25/50) 1 each PO BID [facility] Miscellaneous Medication (Fluconazole 100 Mg Tablet) 1 each PO QDAY [facility] Nitroglycerin (Nitroglycerin 0.4 Mg Tab Subl) 0.4 mg SL .Q5MIN PRN PRN Reason: Chest Pain Ondansetron HCl (Ondansetron 4 Mg Odt Tab) 4 mg PO Q6HR PRN PRN Reason: Nausea Review of Systems All systems: negative Constitutional: malaise Cardiovascular: chest pain, shortness of breath, dyspnea on exertion Respiratory: cough, shortness of breath, dyspnea on exertion, congestion Gastrointestinal: nausea Exam - Constitutional Vitals: Temp Pulse Resp BP Pulse Ox 98.4 F 125 H 20 159/105 97 04/19/21 02:54 04/19/21 07:42 04/19/21 07:42 04/19/21 02:54 04/19/21 02:54 General appearance: Present: no acute distress, well-nourished - EENT Eyes: Present: PERRL ENT: hearing intact, clear oral mucosa - Neck Neck: Present: supple, normal ROM - Respiratory Respiratory effort: normal Respiratory: bilateral: diminished - Cardiovascular Heart Sounds: Present: S1 & S2. Absent: rub, click - Extremities Extremities: pulses symmetrical, No edema Peripheral Pulses: within normal limits - Abdominal General gastrointestinal: Present: soft, non-tender, non-distended, normal bowel sounds Female genitourinary: Present: normal - Integumentary Integumentary: Present: clear, warm, dry - Musculoskeletal Musculoskeletal: gait normal, strength equal bilaterally - Psychiatric Psychiatric: appropriate mood/affect, intact judgment & insight - Neurologic Neurologic: CNII-XII intact, moves all extremities HEART Score - HEART Score EKG: Non-specific Age: 45-65 Risk factors: 1-2 risk factors Troponin: Troponin T < 0.010 ng/mL (0.00-0.029) 04/19/21 17:13 Troponin: < normal limit - Critical Actions Critical Actions: 4-6 pts:12-16.6% risk of adverse cardiac event. Should be admitted Results - Labs CBC & Chem 7: 04/19/21 06:58 04/19/21 06:58 Labs: Laboratory Last Values WBC 7.5 K/mm3 (4.5-11.0) 04/19/21 06:58 RBC 4.64 M/mm3 (3.65-5.03) 04/19/21 06:58 Hgb 11.9 gm/dl (10.1-14.3) 04/19/21 06:58 Hct 38.4 % (30.3-42.9) 04/19/21 06:58 MCV 83 fl (79-97) 04/19/21 06:58 MCH 26 pg (28-32) L 04/19/21 06:58 MCHC 31 % (30-34) 04/19/21 06:58 RDW 16.2 % (13.2-15.2) H 04/19/21 06:58 Plt Count 161 K/mm3 (140-440) 04/19/21 06:58 Add Manual Diff Complete 04/19/21 06:58 Total Counted 100 04/19/21 06:58 Seg Neuts % (Manual) 76.0 % (40.0-70.0) H 04/19/21 06:58 Band Neutrophils % 1.0 % 04/19/21 06:58 Lymphocytes % (Manual) 16.0 % (13.4-35.0) 04/19/21 06:58 Reactive Lymphs % (Man) 2.0 % 04/19/21 06:58 Monocytes % (Manual) 1.0 % (0.0-7.3) 04/19/21 06:58 Eosinophils % (Manual) 1.0 % (0.0-4.3) 04/19/21 06:58 Basophils % (Manual) 1.0 % (0.0-1.8) 04/19/21 06:58 Metamyelocytes % 2.0 % 04/19/21 06:58 Myelocytes % 0 % 04/19/21 06:58 Promyelocytes % 0 % 04/19/21 06:58 Blast Cells % 0 % 04/19/21 06:58 Nucleated RBC % Not Reportable 04/19/21 06:58 Seg Neutrophils # Man 5.7 K/mm3 (1.8-7.7) 04/19/21 06:58 Band Neutrophils # 0.1 K/mm3 04/19/21 06:58 Lymphocytes # (Manual) 1.2 K/mm3 (1.2-5.4) 04/19/21 06:58 Abs React Lymphs (Man) 0.2 K/mm3 04/19/21 06:58 Monocytes # (Manual) 0.1 K/mm3 (0.0-0.8) 04/19/21 06:58 Eosinophils # (Manual) 0.1 K/mm3 (0.0-0.4) 04/19/21 06:58 Basophils # (Manual) 0.1 K/mm3 (0.0-0.1) 04/19/21 06:58 Metamyelocytes # 0.2 K/mm3 04/19/21 06:58 Myelocytes # 0.0 K/mm3 04/19/21 06:58 Promyelocytes # 0.0 K/mm3 04/19/21 06:58 Blast Cells # 0.0 K/mm3 04/19/21 06:58 WBC Morphology Not Reportable 04/19/21 06:58 Hypersegmented Neuts Not Reportable 04/19/21 06:58 Hyposegmented Neuts Not Reportable 04/19/21 06:58 Hypogranular Neuts Not Reportable 04/19/21 06:58 Smudge Cells Not Reportable 04/19/21 06:58 Toxic Granulation Not Reportable 04/19/21 06:58 Toxic Vacuolation Not Reportable 04/19/21 06:58 Dohle Bodies Not Reportable 04/19/21 06:58 Pelger-Huet Anomaly Not Reportable 04/19/21 06:58 Sara Rods Not Reportable 04/19/21 06:58 Platelet Estimate Consistent w auto 04/19/21 06:58 Clumped Platelets Not Reportable 04/19/21 06:58 Plt Clumps, EDTA Not Reportable 04/19/21 06:58 Large Platelets Not Reportable 04/19/21 06:58 Giant Platelets Not Reportable 04/19/21 06:58 Platelet Satelliting Not Reportable 04/19/21 06:58 Plt Morphology Comment Not Reportable 04/19/21 06:58 RBC Morphology Not Reportable 04/19/21 06:58 Dimorphic RBCs Not Reportable 04/19/21 06:58 Polychromasia Not Reportable 04/19/21 06:58 Hypochromasia 1+ 04/19/21 06:58 Poikilocytosis Not Reportable 04/19/21 06:58 Anisocytosis 1+ 04/19/21 06:58 Microcytosis Not Reportable 04/19/21 06:58 Macrocytosis Not Reportable 04/19/21 06:58 Spherocytes Not Reportable 04/19/21 06:58 Pappenheimer Bodies Not Reportable 04/19/21 06:58 Sickle Cells Not Reportable 04/19/21 06:58 Target Cells Not Reportable 04/19/21 06:58 Tear Drop Cells Not Reportable 04/19/21 06:58 Ovalocytes Not Reportable 04/19/21 06:58 Helmet Cells Not Reportable 04/19/21 06:58 [place] Bodies Not Reportable 04/19/21 06:58 [place] Rings Not Reportable 04/19/21 06:58 [place] Cells Not Reportable 04/19/21 06:58 Bite Cells Not Reportable 04/19/21 06:58 Crenated Cell Not Reportable 04/19/21 06:58 Elliptocytes Not Reportable 04/19/21 06:58 Acanthocytes (Spur) Not Reportable 04/19/21 06:58 Rouleaux Not Reportable 04/19/21 06:58 Hemoglobin C Crystals Not Reportable 04/19/21 06:58 Schistocytes Not Reportable 04/19/21 06:58 Malaria parasites Not Reportable 04/19/21 06:58 Margar[place] Bodies Not Reportable 04/19/21 06:58 Hem Pathologist Commnt No 04/19/21 06:58 PT 13.3 Sec. (12.2-14.9) 04/19/21 06:58 INR 0.91 (0.87-1.13) 04/19/21 06:58 D-Dimer 876.04 ng/mlDDU (0-234) H 04/19/21 06:58 Sodium 144 mmol/L (137-145) 04/19/21 06:58 Potassium 3.6 mmol/L (3.6-5.0) 04/19/21 06:58 Chloride 104.3 mmol/L (98-107) 04/19/21 06:58 Carbon Dioxide 28 mmol/L (22-30) 04/19/21 06:58 Anion Gap 15 mmol/L 04/19/21 06:58 BUN 11 mg/dL (7-17) 04/19/21 06:58 Creatinine 1.3 mg/dL (0.6-1.2) H 04/19/21 06:58 Estimated GFR 53 ml/min 04/19/21 06:58 BUN/Creatinine Ratio 8 % 04/19/21 06:58 Glucose 95 mg/dL (65-100) 04/19/21 06:58 Lactic Acid 2.00 mmol/L (0.7-2.0) 04/19/21 06:58 Calcium 8.9 mg/dL (8.4-10.2) 04/19/21 06:58 Magnesium 1.50 mg/dL (1.7-2.3) L 04/19/21 06:58 Total Bilirubin 0.30 mg/dL (0.1-1.2) 04/19/21 06:58 AST 30 units/L (5-40) 04/19/21 06:58 ALT 15 units/L (7-56) 04/19/21 06:58 Alkaline Phosphatase 83 units/L (35-129) 04/19/21 06:58 Troponin T < 0.010 ng/mL (0.00-0.029) 04/19/21 17:13 Total Protein 6.3 g/dL (6.3-8.2) 04/19/21 06:58 Albumin 3.4 g/dL (3.9-5) L 04/19/21 06:58 Albumin/Globulin Ratio 1.2 % 04/19/21 06:58 - Imaging and Cardiology CT scan - chest: report reviewed Assessment and Plan VTE prophylaxis?: Chemical Plan of care discussed with patient/family: Yes - Patient Problems (1) Acute coronary syndrome Current Visit: Yes Status: Acute Plan to address problem: Admit the patient to the medical telemetry. Aspirin 81 mg p.o. daily. Lipitor 40 mg p.o. daily. Nitroglycerin 0.4 mg sublingual every 5 minutes as needed. We do the serial cardiac enzyme. Echocardiogram. Consult cardiology if needed (2) COPD exacerbation Current Visit: Yes Status: Acute Plan to address problem: Oxygen by nasal cannula 3 L/min. DuoNeb by nebulizer every 4 hours. Albuterol via nebulizer every 4 hours as needed. Solu-Medrol 40 mg IV daily. Singular 10 mg p.o. daily (3) COVID-19 long hauler Current Visit: Yes Status: Acute Plan to address problem: Patient is on Rocephin 2 g IV daily and Zithromax to 50 mg p.o. daily. Solu- Medrol 40 mg IV daily. Due to the blood culture and sputum culture. Follow COVID inflammatory marker (4) History of HIV or AIDS Current Visit: Yes Status: Acute Plan to address problem: We continued home HIV medication. Outpatient follow-up with infectious disease (5) DVT prophylaxis Current Visit: No Status: Acute Plan to address problem: Heparin 5000 units subcu every 8 hours for DVT prophylaxis. Protonix 40 mg p.o. daily for GI prophylaxis. Patient is a full code
[2021-04-20] MEDS: MORPHINE 2 MG/1 ML INJ IV PRN ×2 (01:49→11:58)
[2021-04-20] MEDS: DOXYCYCLINE 100 MG CAP PO SCH ×3 (03:20→23:24)
[2021-04-20] MEDS: WIXELA PO SCH ×3 (03:21→23:39)
[2021-04-20] MEDS: cefTRIAXone/NS 2 GM/100 ML 2 GM/100 ML BAG IV SCH ×2 (03:21→23:25)
[2021-04-20] MEDS: BIKTARVY PO SCH ×2 (03:21→23:38)
[2021-04-20] MEDS: FLUCONAZOLE 100 MG TABLET PO SCH ×2 (03:21→23:38)
[2021-04-20 05:14] LABS: Basophils % (Auto) 0.5 % (0.0-1.8); Eosinophils # (Auto) 0.2 K/mm3 (0.0-0.4); Eosinophils % (Auto) 2.8 % (0.0-4.3); Hematocrit 37.7 % (30.3-42.9); Hemoglobin 11.7 gm/dl (10.1-14.3); Lymphocytes # (Auto) 1.5 K/mm3 (1.2-5.4); Lymphocytes % (Auto) 22.4 % (13.4-35.0); Mean Corpuscular HGB Conc 31 % (30-34); Mean Corpuscular Volume 83 fl (79-97); Monocytes # (Auto) 0.9 K/mm3 (0.0-0.8); Monocytes % (Auto) 12.7 % (0.0-7.3); Platelet Count 140 K/mm3 (140-440); Red Blood Count 4.54 M/mm3 (3.65-5.03); Red Cell Distribution Width 16.3 % (13.2-15.2)
[2021-04-20 05:23] LABS: Calcium 8.3 mg/dL (8.4-10.2)
[2021-04-20] MEDS ORDERED: AZITHROMYCIN 250 MG TAB PO SCH (10:00)
[2021-04-20] MEDS ORDERED: ASPIRIN 81 MG TAB CHEW PO SCH (10:00)
[2021-04-20] MEDS ORDERED: methylPREDNISolone Sod Succinate 40 MG/1 ML INJ IV SCH (10:00)
--- NOTE | 2021-04-20 10:17 | Electrocardiograph Report ---
[facility] Test Date: 2021-04-20 Test Time: 03:05:02 Pat Name: ELIZA AMARO Department: Room: [place] [address] Gender: F Modern Dancer: TEN : 1975 Requested By: HOMER VALLES Order Number: [id number] Reading MD: Kenton Treviño Measurements Intervals [place] Rate: 103 P: 84 MS: 116 QRS: 66 QRSD: 71 T: 257 QT: 326 QTc: 428 Interpretive Statements Sinus tachycardia Compared to ECG 04/19/2021 07:50:57 No significant changes Electronically Signed On 04-20-2021 10:17:17 EST by Ketnon Treviño
--- NOTE | 2021-04-20 15:43 | Progress Note ---
Assessment and Plan Assessment and plan: 46-year-old female with past medical history of COPD, HIV, COVID-19 pneumonia today is her last day of quarantine and also history of renal insufficiency was brought to the hospital because of 4 days of cough, chest wall pain, congestion, mucus production, nausea, malaise and fatigue. #Acute chest pain Likely pleuritic chest pain in the setting of long-term COVID-19 pneumonia effects. Negative troponin x3. EKG unremarkable. CTA chest negative for pulmonary embolism. No need for cardiology consult at this time. #COVID-19 pneumonia #Possible community-acquired pneumonia Previously diagnosed with COVID-19 on prior hospitalization. Repeat coronavirus PCR positive. Continue steroid administration. Follow inflammatory markers every 2-3 days. Continue azithromycin 500 mg daily and Rocephin 2 g daily x5 days. Continue to monitor. #Possible COPD exacerbation Continue DuoNebs every 4 hours and albuterol nebs every 4 hours as needed #HIV Continue home Biktarvy. #Advanced care planning -Disease education conducted, care plan discussed, diagnoses discussed, prognosis discussed, and patient acknowledges understanding with care plan -Time: +30 min Disposition Plan: Continue medical management Total Time Spent with Patient (Minutes): 45 minutes History Interval history: No acute events overnight. Hospitalist Physical - Constitutional Vitals: Temp Pulse Resp BP Pulse Ox 98.4 F 125 H 20 159/105 97 04/19/21 02:54 04/19/21 07:42 04/20/21 01:49 04/19/21 02:54 04/19/21 02:54 General appearance: Present: no acute distress, well-nourished - EENT Eyes: Present: PERRL, EOM intact ENT: hearing intact, clear oral mucosa, poor dentition, edentulous - Neck Neck: Present: supple, normal ROM - Respiratory Respiratory effort: normal Respiratory: bilateral: diminished - Cardiovascular Rhythm: regular Heart Sounds: Present: S1 & S2 - Extremities Extremities: no ischemia, pulses intact, pulses symmetrical, No edema, normal temperature, normal color, Full ROM Peripheral Pulses: within normal limits - Abdominal General gastrointestinal: soft, non-tender, non-distended, normal bowel sounds - Integumentary Integumentary: Present: clear, warm, dry - Psychiatric Psychiatric: appropriate mood/affect, intact judgment & insight, memory intact, cooperative - Neurologic Neurologic: CNII-XII intact, moves all extremities - Allied Health Allied health notes reviewed: nursing HEART Score - HEART Score EKG: Non-specific Age: 45-65 Risk factors: 1-2 risk factors Troponin: Troponin T < 0.010 ng/mL (0.00-0.029) 04/20/21 04:35 Troponin: < normal limit - Critical Actions Critical Actions: 4-6 pts:12-16.6% risk of adverse cardiac event. Should be admitted Results - Labs CBC & Chem 7: 04/20/21 04:35 04/20/21 04:35 Labs: Laboratory Last Values WBC 6.7 K/mm3 (4.5-11.0) 04/20/21 04:35 RBC 4.54 M/mm3 (3.65-5.03) 04/20/21 04:35 Hgb 11.7 gm/dl (10.1-14.3) 04/20/21 04:35 Hct 37.7 % (30.3-42.9) 04/20/21 04:35 MCV 83 fl (79-97) 04/20/21 04:35 MCH 26 pg (28-32) L 04/20/21 04:35 MCHC 31 % (30-34) 04/20/21 04:35 RDW 16.3 % (13.2-15.2) H 04/20/21 04:35 Plt Count 140 K/mm3 (140-440) 04/20/21 04:35 Lymph % (Auto) 22.4 % (13.4-35.0) 04/20/21 04:35 [place] % (Auto) 12.7 % (0.0-7.3) H 04/20/21 04:35 Eos % (Auto) 2.8 % (0.0-4.3) 04/20/21 04:35 Baso % (Auto) 0.5 % (0.0-1.8) 04/20/21 04:35 Lymph # (Auto) 1.5 K/mm3 (1.2-5.4) 04/20/21 04:35 [place] # (Auto) 0.9 K/mm3 (0.0-0.8) H 04/20/21 04:35 Eos # (Auto) 0.2 K/mm3 (0.0-0.4) 04/20/21 04:35 Baso # (Auto) 0.0 K/mm3 (0.0-0.1) 04/20/21 04:35 Add Manual Diff Complete 04/19/21 06:58 Total Counted 100 04/19/21 06:58 Seg Neutrophils % 61.6 % (40.0-70.0) 04/20/21 04:35 Seg Neuts % (Manual) 76.0 % (40.0-70.0) H 04/19/21 06:58 Band Neutrophils % 1.0 % 04/19/21 06:58 Lymphocytes % (Manual) 16.0 % (13.4-35.0) 04/19/21 06:58 Reactive Lymphs % (Man) 2.0 % 04/19/21 06:58 Monocytes % (Manual) 1.0 % (0.0-7.3) 04/19/21 06:58 Eosinophils % (Manual) 1.0 % (0.0-4.3) 04/19/21 06:58 Basophils % (Manual) 1.0 % (0.0-1.8) 04/19/21 06:58 Metamyelocytes % 2.0 % 04/19/21 06:58 Myelocytes % 0 % 04/19/21 06:58 Promyelocytes % 0 % 04/19/21 06:58 Blast Cells % 0 % 04/19/21 06:58 Nucleated RBC % Not Reportable 04/19/21 06:58 Seg Neutrophils # 4.1 K/mm3 (1.8-7.7) 04/20/21 04:35 Seg Neutrophils # Man 5.7 K/mm3 (1.8-7.7) 04/19/21 06:58 Band Neutrophils # 0.1 K/mm3 04/19/21 06:58 Lymphocytes # (Manual) 1.2 K/mm3 (1.2-5.4) 04/19/21 06:58 Abs React Lymphs (Man) 0.2 K/mm3 04/19/21 06:58 Monocytes # (Manual) 0.1 K/mm3 (0.0-0.8) 04/19/21 06:58 Eosinophils # (Manual) 0.1 K/mm3 (0.0-0.4) 04/19/21 06:58 Basophils # (Manual) 0.1 K/mm3 (0.0-0.1) 04/19/21 06:58 Metamyelocytes # 0.2 K/mm3 04/19/21 06:58 Myelocytes # 0.0 K/mm3 04/19/21 06:58 Promyelocytes # 0.0 K/mm3 04/19/21 06:58 Blast Cells # 0.0 K/mm3 04/19/21 06:58 WBC Morphology Not Reportable 04/19/21 06:58 Hypersegmented Neuts Not Reportable 04/19/21 06:58 Hyposegmented Neuts Not Reportable 04/19/21 06:58 Hypogranular Neuts Not Reportable 04/19/21 06:58 Smudge Cells Not Reportable 04/19/21 06:58 Toxic Granulation Not Reportable 04/19/21 06:58 Toxic Vacuolation Not Reportable 04/19/21 06:58 Dohle Bodies Not Reportable 04/19/21 06:58 Pelger-Huet Anomaly Not Reportable 04/19/21 06:58 Sara Rods Not Reportable 04/19/21 06:58 Platelet Estimate Consistent w auto 04/19/21 06:58 Clumped Platelets Not Reportable 04/19/21 06:58 Plt Clumps, EDTA Not Reportable 04/19/21 06:58 Large Platelets Not Reportable 04/19/21 06:58 Giant Platelets Not Reportable 04/19/21 06:58 Platelet Satelliting Not Reportable 04/19/21 06:58 Plt Morphology Comment Not Reportable 04/19/21 06:58 RBC Morphology Not Reportable 04/19/21 06:58 Dimorphic RBCs Not Reportable 04/19/21 06:58 Polychromasia Not Reportable 04/19/21 06:58 Hypochromasia 1+ 04/19/21 06:58 Poikilocytosis Not Reportable 04/19/21 06:58 Anisocytosis 1+ 04/19/21 06:58 Microcytosis Not Reportable 04/19/21 06:58 Macrocytosis Not Reportable 04/19/21 06:58 Spherocytes Not Reportable 04/19/21 06:58 Pappenheimer Bodies Not Reportable 04/19/21 06:58 Sickle Cells Not Reportable 04/19/21 06:58 Target Cells Not Reportable 04/19/21 06:58 Tear Drop Cells Not Reportable 04/19/21 06:58 Ovalocytes Not Reportable 04/19/21 06:58 Helmet Cells Not Reportable 04/19/21 06:58 [place] Bodies Not Reportable 04/19/21 06:58 [place] Rings Not Reportable 04/19/21 06:58 [place] Cells Not Reportable 04/19/21 06:58 Bite Cells Not Reportable 04/19/21 06:58 Crenated Cell Not Reportable 04/19/21 06:58 Elliptocytes Not Reportable 04/19/21 06:58 Acanthocytes (Spur) Not Reportable 04/19/21 06:58 Rouleaux Not Reportable 04/19/21 06:58 Hemoglobin C Crystals Not Reportable 04/19/21 06:58 Schistocytes Not Reportable 04/19/21 06:58 Malaria parasites Not Reportable 04/19/21 06:58 Margarito Bodies Not Reportable 04/19/21 06:58 Hem Pathologist Commnt No 04/19/21 06:58 PT 13.3 Sec. (12.2-14.9) 04/19/21 06:58 INR 0.91 (0.87-1.13) 04/19/21 06:58 D-Dimer 876.04 ng/mlDDU (0-234) H 04/19/21 06:58 Sodium 140 mmol/L (137-145) 04/20/21 04:35 Potassium 3.9 mmol/L (3.6-5.0) 04/20/21 04:35 Chloride 104.0 mmol/L (98-107) 04/20/21 04:35 Carbon Dioxide 26 mmol/L (22-30) 04/20/21 04:35 Anion Gap 14 mmol/L 04/20/21 04:35 BUN 19 mg/dL (7-17) H 04/20/21 04:35 Creatinine 1.5 mg/dL (0.6-1.2) H 04/20/21 04:35 Estimated GFR 45 ml/min 04/20/21 04:35 BUN/Creatinine Ratio 13 % 04/20/21 04:35 Glucose 98 mg/dL (65-100) 04/20/21 04:35 Lactic Acid 2.00 mmol/L (0.7-2.0) 04/19/21 06:58 Calcium 8.3 mg/dL (8.4-10.2) L 04/20/21 04:35 Magnesium 1.50 mg/dL (1.7-2.3) L 04/19/21 06:58 Total Bilirubin 0.30 mg/dL (0.1-1.2) 04/19/21 06:58 AST 30 units/L (5-40) 04/19/21 06:58 ALT 15 units/L (7-56) 04/19/21 06:58 Alkaline Phosphatase 83 units/L (35-129) 04/19/21 06:58 Troponin T < 0.010 ng/mL (0.00-0.029) 04/20/21 04:35 Total Protein 6.3 g/dL (6.3-8.2) 04/19/21 06:58 Albumin 3.4 g/dL (3.9-5) L 04/19/21 06:58 Albumin/Globulin Ratio 1.2 % 04/19/21 06:58 Coronavirus (PCR) Positive (Negative) A 04/20/21 Unknown Active Medications - Current Medications Current Medications: Generic Name Dose Route Start Last Admin Trade Name Freq PRN Reason Stop Dose Admin Acetaminophen 650 mg 04/19/21 12:39 Acetaminophen 325 Mg Tab PO Q6HR PRN PAIN Albuterol 2.5 mg 04/19/21 12:39 Albuterol 2.5 Mg/3 Ml Nebu IH PRN PRN Wheezing Aspirin 81 mg 04/20/21 10:00 Aspirin 81 Mg Tab Chew PO QDAY [facility] Atorvastatin Calcium 40 mg 04/20/21 22:00 Atorvastatin 40 Mg Tab PO QHS [facility] Azithromycin 250 mg 04/20/21 10:00 Azithromycin 250 Mg Tab PO QDAY [facility] Protocol Doxycycline Hyclate 100 mg 04/19/21 13:00 04/20/21 03:21 Doxycycline 100 Mg Cap PO 04/23/21 22:01 Not Given BID [facility] Protocol Fluconazole 100 mg 04/20/21 10:00 Fluconazole 100 Mg Tab PO QDAY [facility] Heparin Sodium (Porcine) 5,000 unit 04/20/21 06:00 Heparin 5,000 Unit/1 Ml Vial SUB-Q Q8HR [facility] Ceftriaxone Sodium 2 gm in 100 mls @ 200 mls/hr 04/19/21 23:00 04/20/21 03:21 Rocephin/Ns 2 Gm/100 Ml IV Not Given Q24HR [facility] Protocol Ipratropium [place] 0.5 mg 04/19/21 12:39 Ipratropium 0.02% Nebu 2.5 Ml IH Q4HR PRN Wheezing Magnesium Oxide 400 mg 04/20/21 10:00 Magnesium Oxide 400 Mg Tab PO 04/24/21 10:01 QDAY [facility] Miscellaneous Medication 1 each 04/19/21 13:45 04/20/21 03:21 Biktarvy 50-200-25 Tablet PO Not Given DAILY [facility] Miscellaneous Medication 1 each 04/19/21 13:45 04/20/21 03:21 Wixela 25/50 PO Not Given BID [facility] Montelukast Sodium 10 mg 04/20/21 22:00 Montelukast 10 Mg Tab PO QHS [facility] Morphine Sulfate 2 mg 04/19/21 22:02 04/20/21 11:58 Morphine 2 Mg/1 Ml Inj IV 2 mg Q5MIN PRN Administration Chest Pain unrelieved by NTG Nitroglycerin 0.4 mg 04/19/21 06:51 Nitroglycerin 0.4 Mg Tab Subl SL .Q5MIN PRN Chest Pain Nitroglycerin 0.4 mg 04/19/21 22:02 Nitroglycerin 0.4 Mg Tab Subl SL Q5M PRN Chest Pain Ondansetron HCl 4 mg 04/19/21 12:39 Ondansetron 4 Mg Odt Tab PO Q6HR PRN Nausea Pantoprazole Sodium 40 mg 04/20/21 10:00 Pantoprazole 40 Mg Tab PO QDAY [facility] Prednisone 40 mg 04/20/21 10:00 Prednisone 20 Mg Tab PO QDAY [facility] Sodium Chloride 10 ml 04/19/21 22:02 Sodium Chloride 0.9% 10 Ml Flush Syringe IV PRN PRN LINE FLUSH Tramadol HCl 50 mg 04/19/21 22:02 Tramadol 50 Mg Tab PO Q6H PRN Pain, Moderate (4-6)
[2021-04-20] MEDS: traMADol 50 MG TAB PO PRN (19:59)
[2021-04-20] MEDS: HEPARIN 5,000 UNIT/1 ML VIAL SUB-Q SCH ×2 (23:06→23:32)
[2021-04-20] MEDS: ASPIRIN 81 MG TAB CHEW PO SCH (23:24)
[2021-04-20] MEDS: predniSONE 20 MG TAB PO SCH (23:24)
[2021-04-20] MEDS: MAGNESIUM OXIDE 400 MG TAB PO SCH (23:25)
[2021-04-20] MEDS: PANTOPRAZOLE 40 MG TAB PO SCH (23:28)
[2021-04-21] MEDS: FLUCONAZOLE 100 MG TAB PO SCH ×2 (01:24→15:30)
[2021-04-21] MEDS: MONTELUKAST 10 MG TAB PO SCH ×2 (01:24→23:59)
[2021-04-21] MEDS: DOXYCYCLINE 100 MG CAP PO SCH (01:25)
[2021-04-21] MEDS: HEPARIN 5,000 UNIT/1 ML VIAL SUB-Q SCH ×2 (06:24→23:58)
[2021-04-21] MEDS: MAGNESIUM OXIDE 400 MG TAB PO SCH (10:00)
[2021-04-21] MEDS: PANTOPRAZOLE 40 MG TAB PO SCH (10:00)
[2021-04-21] MEDS: NIFEdipine XL 30 MG TAB PO SCH (10:00)
[2021-04-21] MEDS: cefTRIAXone/NS 2 GM/100 ML 2 GM/100 ML BAG IV SCH (15:06)
[2021-04-21] MEDS: ASPIRIN 81 MG TAB CHEW PO SCH (15:07)
[2021-04-21] MEDS: AZITHROMYCIN 250 MG TAB PO SCH (15:08)
[2021-04-21] MEDS: predniSONE 20 MG TAB PO SCH (15:30)
[2021-04-21] MEDS: BIKTARVY PO SCH (16:36)
[2021-04-21] MEDS: WIXELA PO SCH (16:36)
--- NOTE | 2021-04-21 16:42 | Progress Note ---
Assessment and Plan Assessment and plan: 46-year-old female with past medical history of COPD, HIV, COVID-19 pneumonia today is her last day of quarantine and also history of renal insufficiency was brought to the hospital because of 4 days of cough, chest wall pain, congestion, mucus production, nausea, malaise and fatigue. #Acute chest pain Likely pleuritic chest pain in the setting of long-term COVID-19 pneumonia effects. Negative troponin x3. EKG unremarkable. CTA chest negative for pulmonary embolism. No need for cardiology consult at this time. #COVID-19 pneumonia #Possible community-acquired pneumonia Previously diagnosed with COVID-19 on prior hospitalization. Repeat coronavirus PCR positive. Continue steroid administration. Follow inflammatory markers every 2-3 days. Continue azithromycin 500 mg daily and Rocephin 2 g daily x5 days. Continue to monitor. #Possible COPD exacerbation Continue DuoNebs every 4 hours and albuterol nebs every 4 hours as needed #HIV Continue home Biktarvy. #Advanced care planning -Disease education conducted, care plan discussed, diagnoses discussed, prognosis discussed, and patient acknowledges understanding with care plan -Time: +30 min Disposition Plan: Continue medical management Total Time Spent with Patient (Minutes): 45 min History Interval history: No acute events overnight. Hospitalist Physical - Constitutional Vitals: Temp Pulse Resp BP Pulse Ox 98.4 F 93 H 17 133/93 99 04/19/21 02:54 04/21/21 07:04 04/21/21 07:04 04/21/21 02:00 04/21/21 07:04 General appearance: Present: no acute distress, well-nourished - EENT Eyes: Present: PERRL, EOM intact ENT: hearing intact, clear oral mucosa, poor dentition, edentulous - Neck Neck: Present: supple, normal ROM - Respiratory Respiratory effort: normal Respiratory: bilateral: diminished - Cardiovascular Rhythm: regular Heart Sounds: Present: S1 & S2 - Extremities Extremities: no ischemia, pulses intact, pulses symmetrical, No edema, normal temperature, normal color, Full ROM Peripheral Pulses: within normal limits - Abdominal General gastrointestinal: soft, non-tender, non-distended, distended - Integumentary Integumentary: Present: clear, warm, dry - Psychiatric Psychiatric: appropriate mood/affect, intact judgment & insight, memory intact, cooperative - Neurologic Neurologic: CNII-XII intact, moves all extremities - Allied Health Allied health notes reviewed: nursing HEART Score - HEART Score EKG: Non-specific Age: 45-65 Risk factors: 1-2 risk factors Troponin: Troponin T < 0.010 ng/mL (0.00-0.029) 04/20/21 04:35 Troponin: < normal limit - Critical Actions Critical Actions: 4-6 pts:12-16.6% risk of adverse cardiac event. Should be admitted Results - Labs CBC & Chem 7: 04/20/21 04:35 04/20/21 04:35 Labs: Laboratory Last Values WBC 6.7 K/mm3 (4.5-11.0) 04/20/21 04:35 RBC 4.54 M/mm3 (3.65-5.03) 04/20/21 04:35 Hgb 11.7 gm/dl (10.1-14.3) 04/20/21 04:35 Hct 37.7 % (30.3-42.9) 04/20/21 04:35 MCV 83 fl (79-97) 04/20/21 04:35 MCH 26 pg (28-32) L 04/20/21 04:35 MCHC 31 % (30-34) 04/20/21 04:35 RDW 16.3 % (13.2-15.2) H 04/20/21 04:35 Plt Count 140 K/mm3 (140-440) 04/20/21 04:35 Lymph % (Auto) 22.4 % (13.4-35.0) 04/20/21 04:35 [place] % (Auto) 12.7 % (0.0-7.3) H 04/20/21 04:35 Eos % (Auto) 2.8 % (0.0-4.3) 04/20/21 04:35 Baso % (Auto) 0.5 % (0.0-1.8) 04/20/21 04:35 Lymph # (Auto) 1.5 K/mm3 (1.2-5.4) 04/20/21 04:35 [place] # (Auto) 0.9 K/mm3 (0.0-0.8) H 04/20/21 04:35 Eos # (Auto) 0.2 K/mm3 (0.0-0.4) 04/20/21 04:35 Baso # (Auto) 0.0 K/mm3 (0.0-0.1) 04/20/21 04:35 Add Manual Diff Complete 04/19/21 06:58 Total Counted 100 04/19/21 06:58 Seg Neutrophils % 61.6 % (40.0-70.0) 04/20/21 04:35 Seg Neuts % (Manual) 76.0 % (40.0-70.0) H 04/19/21 06:58 Band Neutrophils % 1.0 % 04/19/21 06:58 Lymphocytes % (Manual) 16.0 % (13.4-35.0) 04/19/21 06:58 Reactive Lymphs % (Man) 2.0 % 04/19/21 06:58 Monocytes % (Manual) 1.0 % (0.0-7.3) 04/19/21 06:58 Eosinophils % (Manual) 1.0 % (0.0-4.3) 04/19/21 06:58 Basophils % (Manual) 1.0 % (0.0-1.8) 04/19/21 06:58 Metamyelocytes % 2.0 % 04/19/21 06:58 Myelocytes % 0 % 04/19/21 06:58 Promyelocytes % 0 % 04/19/21 06:58 Blast Cells % 0 % 04/19/21 06:58 Nucleated RBC % Not Reportable 04/19/21 06:58 Seg Neutrophils # 4.1 K/mm3 (1.8-7.7) 04/20/21 04:35 Seg Neutrophils # Man 5.7 K/mm3 (1.8-7.7) 04/19/21 06:58 Band Neutrophils # 0.1 K/mm3 04/19/21 06:58 Lymphocytes # (Manual) 1.2 K/mm3 (1.2-5.4) 04/19/21 06:58 Abs React Lymphs (Man) 0.2 K/mm3 04/19/21 06:58 Monocytes # (Manual) 0.1 K/mm3 (0.0-0.8) 04/19/21 06:58 Eosinophils # (Manual) 0.1 K/mm3 (0.0-0.4) 04/19/21 06:58 Basophils # (Manual) 0.1 K/mm3 (0.0-0.1) 04/19/21 06:58 Metamyelocytes # 0.2 K/mm3 04/19/21 06:58 Myelocytes # 0.0 K/mm3 04/19/21 06:58 Promyelocytes # 0.0 K/mm3 04/19/21 06:58 Blast Cells # 0.0 K/mm3 04/19/21 06:58 WBC Morphology Not Reportable 04/19/21 06:58 Hypersegmented Neuts Not Reportable 04/19/21 06:58 Hyposegmented Neuts Not Reportable 04/19/21 06:58 Hypogranular Neuts Not Reportable 04/19/21 06:58 Smudge Cells Not Reportable 04/19/21 06:58 Toxic Granulation Not Reportable 04/19/21 06:58 Toxic Vacuolation Not Reportable 04/19/21 06:58 Dohle Bodies Not Reportable 04/19/21 06:58 Pelger-Huet Anomaly Not Reportable 04/19/21 06:58 Sara Rods Not Reportable 04/19/21 06:58 Platelet Estimate Consistent w auto 04/19/21 06:58 Clumped Platelets Not Reportable 04/19/21 06:58 Plt Clumps, EDTA Not Reportable 04/19/21 06:58 Large Platelets Not Reportable 04/19/21 06:58 Giant Platelets Not Reportable 04/19/21 06:58 Platelet Satelliting Not Reportable 04/19/21 06:58 Plt Morphology Comment Not Reportable 04/19/21 06:58 RBC Morphology Not Reportable 04/19/21 06:58 Dimorphic RBCs Not Reportable 04/19/21 06:58 Polychromasia Not Reportable 04/19/21 06:58 Hypochromasia 1+ 04/19/21 06:58 Poikilocytosis Not Reportable 04/19/21 06:58 Anisocytosis 1+ 04/19/21 06:58 Microcytosis Not Reportable 04/19/21 06:58 Macrocytosis Not Reportable 04/19/21 06:58 Spherocytes Not Reportable 04/19/21 06:58 Pappenheimer Bodies Not Reportable 04/19/21 06:58 Sickle Cells Not Reportable 04/19/21 06:58 Target Cells Not Reportable 04/19/21 06:58 Tear Drop Cells Not Reportable 04/19/21 06:58 Ovalocytes Not Reportable 04/19/21 06:58 Helmet Cells Not Reportable 04/19/21 06:58 [place] Bodies Not Reportable 04/19/21 06:58 [place] Rings Not Reportable 04/19/21 06:58 Mary Cells Not Reportable 04/19/21 06:58 Bite Cells Not Reportable 04/19/21 06:58 Crenated Cell Not Reportable 04/19/21 06:58 Elliptocytes Not Reportable 04/19/21 06:58 Acanthocytes (Spur) Not Reportable 04/19/21 06:58 Rouleaux Not Reportable 04/19/21 06:58 Hemoglobin C Crystals Not Reportable 04/19/21 06:58 Schistocytes Not Reportable 04/19/21 06:58 Malaria parasites Not Reportable 04/19/21 06:58 [place]ar[place] Bodies Not Reportable 04/19/21 06:58 Hem Pathologist Commnt No 04/19/21 06:58 PT 13.3 Sec. (12.2-14.9) 04/19/21 06:58 INR 0.91 (0.87-1.13) 04/19/21 06:58 D-Dimer 876.04 ng/mlDDU (0-234) H 04/19/21 06:58 Sodium 140 mmol/L (137-145) 04/20/21 04:35 Potassium 3.9 mmol/L (3.6-5.0) 04/20/21 04:35 Chloride 104.0 mmol/L (98-107) 04/20/21 04:35 Carbon Dioxide 26 mmol/L (22-30) 04/20/21 04:35 Anion Gap 14 mmol/L 04/20/21 04:35 BUN 19 mg/dL (7-17) H 04/20/21 04:35 Creatinine 1.5 mg/dL (0.6-1.2) H 04/20/21 04:35 Estimated GFR 45 ml/min 04/20/21 04:35 BUN/Creatinine Ratio 13 % 04/20/21 04:35 Glucose 98 mg/dL (65-100) 04/20/21 04:35 Lactic Acid 2.00 mmol/L (0.7-2.0) 04/19/21 06:58 Calcium 8.3 mg/dL (8.4-10.2) L 04/20/21 04:35 Magnesium 1.50 mg/dL (1.7-2.3) L 04/19/21 06:58 Total Bilirubin 0.30 mg/dL (0.1-1.2) 04/19/21 06:58 AST 30 units/L (5-40) 04/19/21 06:58 ALT 15 units/L (7-56) 04/19/21 06:58 Alkaline Phosphatase 83 units/L (35-129) 04/19/21 06:58 Troponin T < 0.010 ng/mL (0.00-0.029) 04/20/21 04:35 Total Protein 6.3 g/dL (6.3-8.2) 04/19/21 06:58 Albumin 3.4 g/dL (3.9-5) L 04/19/21 06:58 Albumin/Globulin Ratio 1.2 % 04/19/21 06:58 Coronavirus (PCR) Positive (Negative) A 04/20/21 Unknown Active Medications - Current Medications Current Medications: Generic Name Dose Route Start Last Admin Trade Name Freq PRN Reason Stop Dose Admin Acetaminophen 650 mg 04/19/21 12:39 Acetaminophen 325 Mg Tab PO Q6HR PRN PAIN Albuterol 2.5 mg 04/19/21 12:39 Albuterol 2.5 Mg/3 Ml Nebu IH PRN PRN Wheezing Aspirin 81 mg 04/20/21 10:00 04/21/21 15:07 Aspirin 81 Mg Tab Chew PO 81 mg QDAY KYAW Administration Atorvastatin Calcium 40 mg 04/20/21 22:00 04/20/21 23:24 Atorvastatin 40 Mg Tab PO 40 mg QHS KYAW Administration Azithromycin 500 mg 04/21/21 10:00 04/21/21 15:08 Azithromycin 250 Mg Tab PO 04/24/21 12:59 500 mg QDAY KYAW Administration Protocol Fluconazole 100 mg 04/20/21 10:00 04/21/21 15:30 Fluconazole 100 Mg Tab PO 100 mg QDAY KYAW Administration Heparin Sodium (Porcine) 5,000 unit 04/20/21 06:00 04/21/21 06:24 Heparin 5,000 Unit/1 Ml Vial SUB-Q 5,000 unit Q8HR KYAW Administration Ceftriaxone Sodium 2 gm in 100 mls @ 200 mls/hr 04/19/21 23:00 04/21/21 15:06 Rocephin/Ns 2 Gm/100 Ml IV 200 mls/hr Q24HR KYAW Administration Protocol Ipratropium [place] 0.5 mg 04/19/21 12:39 04/21/21 15:07 Ipratropium 0.02% Nebu 2.5 Ml IH 0.5 mg Q4HR PRN Administration Wheezing Magnesium Oxide 400 mg 04/20/21 10:00 04/21/21 10:00 Magnesium Oxide 400 Mg Tab PO 04/24/21 10:01 400 mg QDAY KYAW Administration Miscellaneous Medication 1 each 04/19/21 13:45 04/21/21 16:36 Biktarvy 50-200-25 Tablet PO 1 each DAILY KYAW Administration Miscellaneous Medication 1 each 04/19/21 13:45 04/21/21 16:36 [place] 25/50 PO 1 each BID KYAW Administration Montelukast Sodium 10 mg 04/20/21 22:00 04/21/21 01:24 Montelukast 10 Mg Tab PO 10 mg QHS KYAW Administration Morphine Sulfate 2 mg 04/19/21 22:02 04/20/21 11:58 Morphine 2 Mg/1 Ml Inj IV 2 mg Q5MIN PRN Administration Chest Pain unrelieved by NTG Nifedipine 30 mg 04/21/21 10:00 04/21/21 10:00 Nifedipine Xl 30 Mg Tab PO 30 mg QDAY KYAW Administration Nitroglycerin 0.4 mg 04/19/21 06:51 Nitroglycerin 0.4 Mg Tab Subl SL .Q5MIN PRN Chest Pain Nitroglycerin 0.4 mg 04/19/21 22:02 Nitroglycerin 0.4 Mg Tab Subl SL Q5M PRN Chest Pain Ondansetron HCl 4 mg 04/19/21 12:39 04/20/21 20:00 Ondansetron 4 Mg Odt Tab PO 4 mg Q6HR PRN Administration Nausea Pantoprazole Sodium 40 mg 04/20/21 10:00 04/21/21 10:00 Pantoprazole 40 Mg Tab PO 40 mg QDAY KYAW Administration Prednisone 40 mg 04/20/21 10:00 04/21/21 15:30 Prednisone 20 Mg Tab PO 40 mg QDAY KYAW Administration Sodium Chloride 10 ml 04/19/21 22:02 Sodium Chloride 0.9% 10 Ml Flush Syringe IV PRN PRN LINE FLUSH Tramadol HCl 50 mg 04/19/21 22:02 04/20/21 19:59 Tramadol 50 Mg Tab PO 50 mg Q6H PRN Administration Pain, Moderate (4-6)
[2021-04-22] MEDS: MORPHINE 2 MG/1 ML INJ IV PRN ×2 (00:08→05:37)
[2021-04-22] MEDS: WIXELA PO SCH ×3 (03:44→21:50)
[2021-04-22] MEDS: HEPARIN 5,000 UNIT/1 ML VIAL SUB-Q SCH ×4 (03:44→21:51)
[2021-04-22 08:45] LABS: Basophils % (Auto) 0.4 % (0.0-1.8); Lymphocytes # (Auto) 0.8 K/mm3 (1.2-5.4); Lymphocytes % (Auto) 12.7 % (13.4-35.0); Mean Corpuscular HGB Conc 31 % (30-34); Mean Corpuscular Volume 83 fl (79-97); Monocytes # (Auto) 0.6 K/mm3 (0.0-0.8); Monocytes % (Auto) 8.6 % (0.0-7.3); Platelet Count 140 K/mm3 (140-440); Red Blood Count 4.76 M/mm3 (3.65-5.03); Red Cell Distribution Width 16.6 % (13.2-15.2)
[2021-04-22 08:50] LABS: Hematocrit 39.5 % (30.3-42.9); Hemoglobin 12.1 gm/dl (10.1-14.3)
[2021-04-22 09:04] LABS: BUN/Creatinine Ratio 14; Blood Urea Nitrogen 15 mg/dL (7-17); Hemolysis Index 3
[2021-04-22] MEDS: NIFEdipine XL 30 MG TAB PO SCH (09:27)
[2021-04-22] MEDS: cefTRIAXone/NS 2 GM/100 ML 2 GM/100 ML BAG IV SCH (09:27)
[2021-04-22] MEDS: ASPIRIN 81 MG TAB CHEW PO SCH (09:27)
[2021-04-22] MEDS: FLUCONAZOLE 100 MG TAB PO SCH (09:27)
[2021-04-22] MEDS: predniSONE 20 MG TAB PO SCH (09:27)
[2021-04-22] MEDS: MAGNESIUM OXIDE 400 MG TAB PO SCH (09:28)
[2021-04-22] MEDS: PANTOPRAZOLE 40 MG TAB PO SCH (09:28)
[2021-04-22] MEDS: AZITHROMYCIN 250 MG TAB PO SCH (09:28)
[2021-04-22] MEDS: BIKTARVY PO SCH (09:36)
--- NOTE | 2021-04-22 11:13 | Electrocardiograph Report ---
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
--- NOTE | 2021-04-22 13:32 | Progress Note ---
Assessment and Plan Assessment and plan: 46-year-old female with past medical history of COPD, HIV, COVID-19 pneumonia today is her last day of quarantine and also history of renal insufficiency was brought to the hospital because of 4 days of cough, chest wall pain, congestion, mucus production, nausea, malaise and fatigue. #Acute chest pain Likely pleuritic chest pain in the setting of long-term COVID-19 pneumonia effects. Negative troponin x3. EKG unremarkable. CTA chest negative for pulmonary embolism. No need for cardiology consult at this time. #COVID-19 pneumonia #Community-acquired pneumonia Previously diagnosed with COVID-19 on prior hospitalization. Repeat megha navirus PCR positive. Continue steroid administration. Follow inflammatory markers every 2-3 days. Continue azithromycin 500 mg daily and Rocephin 2 g daily x5 days. Will complete antibiotic course upon discharge. Continue to monitor. #Possible COPD exacerbation Continue DuoNebs every 4 hours and albuterol nebs every 4 hours as needed #HIV Continue home Biktarvy. #Advanced care planning -Disease education conducted, care plan discussed, diagnoses discussed, prognosis discussed, and patient acknowledges understanding with care plan -Time: +30 min #Discharge planning - pending discharge home tomorrow. - Case Management made aware. - Patient endorses using ride-share service to go home upon discharge. Disposition Plan: Pending discharge tomorrow AM Total Time Spent with Patient (Minutes): 45 min History Interval history: No acute events overnight. Hospitalist Physical - Constitutional Vitals: Temp Pulse Resp BP Pulse Ox 97.7 F 104 H 19 100/65 96 04/22/21 05:28 04/22/21 05:28 04/22/21 05:28 04/22/21 05:28 04/22/21 11:23 General appearance: Present: no acute distress, well-nourished - EENT Eyes: Present: PERRL, EOM intact ENT: hearing intact, clear oral mucosa, poor dentition - Neck Neck: Present: supple, normal ROM - Respiratory Respiratory effort: normal Respiratory: bilateral: diminished - Cardiovascular Rhythm: regular Heart Sounds: Present: S1 & S2 - Extremities Extremities: no ischemia, pulses intact, pulses symmetrical, No edema, normal temperature, normal color, Full ROM Peripheral Pulses: within normal limits - Abdominal General gastrointestinal: soft, non-tender, non-distended, normal bowel sounds - Integumentary Integumentary: Present: clear, warm, dry - Psychiatric Psychiatric: appropriate mood/affect, intact judgment & insight, memory intact, cooperative - Neurologic Neurologic: CNII-XII intact, moves all extremities - Allied Health Allied health notes reviewed: nursing HEART Score - HEART Score EKG: Non-specific Age: 45-65 Risk factors: 1-2 risk factors Troponin: Troponin T < 0.010 ng/mL (0.00-0.029) 04/20/21 04:35 Troponin: < normal limit - Critical Actions Critical Actions: 4-6 pts:12-16.6% risk of adverse cardiac event. Should be adm itted Results - Labs CBC & Chem 7: 04/22/21 08:20 04/22/21 08:20 Labs: Laboratory Last Values WBC 6.7 K/mm3 (4.5-11.0) 04/22/21 08:20 RBC 4.76 M/mm3 (3.65-5.03) 04/22/21 08:20 Hgb 12.1 gm/dl (10.1-14.3) 04/22/21 08:20 Hct 39.5 % (30.3-42.9) 04/22/21 08:20 MCV 83 fl (79-97) 04/22/21 08:20 MCH 25 pg (28-32) L 04/22/21 08:20 MCHC 31 % (30-34) 04/22/21 08:20 RDW 16.6 % (13.2-15.2) H 04/22/21 08:20 Plt Count 140 K/mm3 (140-440) 04/22/21 08:20 Lymph % (Auto) 12.7 % (13.4-35.0) L 04/22/21 08:20 [place] % (Auto) 8.6 % (0.0-7.3) H 04/22/21 08:20 Eos % (Auto) 0.0 % (0.0-4.3) 04/22/21 08:20 Baso % (Auto) 0.4 % (0.0-1.8) 04/22/21 08:20 Lymph # (Auto) 0.8 K/mm3 (1.2-5.4) L 04/22/21 08:20 [place] # (Auto) 0.6 K/mm3 (0.0-0.8) 04/22/21 08:20 Eos # (Auto) 0.0 K/mm3 (0.0-0.4) 04/22/21 08:20 Baso # (Auto) 0.0 K/mm3 (0.0-0.1) 04/22/21 08:20 Add Manual Diff Complete 04/19/21 06:58 Total Counted 100 04/19/21 06:58 Seg Neutrophils % 78.3 % (40.0-70.0) H 04/22/21 08:20 Seg Neuts % (Manual) 76.0 % (40.0-70.0) H 04/19/21 06:58 Band Neutrophils % 1.0 % 04/19/21 06:58 Lymphocytes % (Manual) 16.0 % (13.4-35.0) 04/19/21 06:58 Reactive Lymphs % (Man) 2.0 % 04/19/21 06:58 Monocytes % (Manual) 1.0 % (0.0-7.3) 04/19/21 06:58 Eosinophils % (Manual) 1.0 % (0.0-4.3) 04/19/21 06:58 Basophils % (Manual) 1.0 % (0.0-1.8) 04/19/21 06:58 Metamyelocytes % 2.0 % 04/19/21 06:58 Myelocytes % 0 % 04/19/21 06:58 Promyelocytes % 0 % 04/19/21 06:58 Blast Cells % 0 % 04/19/21 06:58 Nucleated RBC % Not Reportable 04/19/21 06:58 Seg Neutrophils # 5.2 K/mm3 (1.8-7.7) 04/22/21 08:20 Seg Neutrophils # Man 5.7 K/mm3 (1.8-7.7) 04/19/21 06:58 Band Neutrophils # 0.1 K/mm3 04/19/21 06:58 Lymphocytes # (Manual) 1.2 K/mm3 (1.2-5.4) 04/19/21 06:58 Abs React Lymphs (Man) 0.2 K/mm3 04/19/21 06:58 Monocytes # (Manual) 0.1 K/mm3 (0.0-0.8) 04/19/21 06:58 Eosinophils # (Manual) 0.1 K/mm3 (0.0-0.4) 04/19/21 06:58 Basophils # (Manual) 0.1 K/mm3 (0.0-0.1) 04/19/21 06:58 Metamyelocytes # 0.2 K/mm3 04/19/21 06:58 Myelocytes # 0.0 K/mm3 04/19/21 06:58 Promyelocytes # 0.0 K/mm3 04/19/21 06:58 Blast Cells # 0.0 K/mm3 04/19/21 06:58 WBC Morphology Not Reportable 04/19/21 06:58 Hypersegmented Neuts Not Reportable 04/19/21 06:58 Hyposegmented Neuts Not Reportable 04/19/21 06:58 Hypogranular Neuts Not Reportable 04/19/21 06:58 Smudge Cells Not Reportable 04/19/21 06:58 Toxic Granulation Not Reportable 04/19/21 06:58 Toxic Vacuolation Not Reportable 04/19/21 06:58 Dohle Bodies Not Reportable 04/19/21 06:58 Pelger-Huet Anomaly Not Reportable 04/19/21 06:58 Sara Rods Not Reportable 04/19/21 06:58 Platelet Estimate Consistent w auto 04/19/21 06:58 Clumped Platelets Not Reportable 04/19/21 06:58 Plt Clumps, EDTA Not Reportable 04/19/21 06:58 Large Platelets Not Reportable 04/19/21 06:58 Giant Platelets Not Reportable 04/19/21 06:58 Platelet Satelliting Not Reportable 04/19/21 06:58 Plt Morphology Comment Not Reportable 04/19/21 06:58 RBC Morphology Not Reportable 04/19/21 06:58 Dimorphic RBCs Not Reportable 04/19/21 06:58 Polychromasia Not Reportable 04/19/21 06:58 Hypochromasia 1+ 04/19/21 06:58 Poikilocytosis Not Reportable 04/19/21 06:58 Anisocytosis 1+ 04/19/21 06:58 Microcytosis Not Reportable 04/19/21 06:58 Macrocytosis Not Reportable 04/19/21 06:58 Spherocytes Not Reportable 04/19/21 06:58 Pappenheimer Bodies Not Reportable 04/19/21 06:58 Sickle Cells Not Reportable 04/19/21 06:58 Target Cells Not Reportable 04/19/21 06:58 Tear Drop Cells Not Reportable 04/19/21 06:58 Ovalocytes Not Reportable 04/19/21 06:58 Helmet Cells Not Reportable 04/19/21 06:58 [place] Bodies Not Reportable 04/19/21 06:58 [place] Rings Not Reportable 04/19/21 06:58 Mary Cells Not Reportable 04/19/21 06:58 Bite Cells Not Reportable 04/19/21 06:58 Crenated Cell Not Reportable 04/19/21 06:58 Elliptocytes Not Reportable 04/19/21 06:58 Acanthocytes (Spur) Not Reportable 04/19/21 06:58 Rouleaux Not Reportable 04/19/21 06:58 Hemoglobin C Crystals Not Reportable 04/19/21 06:58 Schistocytes Not Reportable 04/19/21 06:58 Malaria parasites Not Reportable 04/19/21 06:58 Margarito Bodies Not Reportable 04/19/21 06:58 Hem Pathologist Commnt No 04/19/21 06:58 PT 13.3 Sec. (12.2-14.9) 04/19/21 06:58 INR 0.91 (0.87-1.13) 04/19/21 06:58 D-Dimer 876.04 ng/mlDDU (0-234) H 04/19/21 06:58 Sodium 138 mmol/L (137-145) 04/22/21 08:20 Potassium 5.0 mmol/L (3.6-5.0) D 04/22/21 08:20 Chloride 97.5 mmol/L (98-107) L 04/22/21 08:20 Carbon Dioxide 29 mmol/L (22-30) 04/22/21 08:20 Anion Gap 17 mmol/L 04/22/21 08:20 BUN 15 mg/dL (7-17) 04/22/21 08:20 Creatinine 1.1 mg/dL (0.6-1.2) 04/22/21 08:20 Estimated GFR > 60 ml/min 04/22/21 08:20 BUN/Creatinine Ratio 14 % 04/22/21 08:20 Glucose 140 mg/dL (65-100) H 04/22/21 08:20 Lactic Acid 2.00 mmol/L (0.7-2.0) 04/19/21 06:58 Calcium 9.0 mg/dL (8.4-10.2) 04/22/21 08:20 Magnesium 1.50 mg/dL (1.7-2.3) L 04/19/21 06:58 Total Bilirubin 0.30 mg/dL (0.1-1.2) 04/19/21 06:58 AST 30 units/L (5-40) 04/19/21 06:58 ALT 15 units/L (7-56) 04/19/21 06:58 Alkaline Phosphatase 83 units/L (35-129) 04/19/21 06:58 Troponin T < 0.010 ng/mL (0.00-0.029) 04/20/21 04:35 Total Protein 6.3 g/dL (6.3-8.2) 04/19/21 06:58 Albumin 3.4 g/dL (3.9-5) L 04/19/21 06:58 Albumin/Globulin Ratio 1.2 % 04/19/21 06:58 Coronavirus (PCR) Positive (Negative) A 04/20/21 Unknown [place]/IV: Voiding Method Toilet Active Medications - Current Medications Current Medications: Generic Name Dose Route Start Last Admin Trade Name Freq PRN Reason Stop Dose Admin Acetaminophen 650 mg 04/19/21 12:39 Acetaminophen 325 Mg Tab PO Q6HR PRN PAIN Albuterol 2.5 mg 04/19/21 12:39 Albuterol 2.5 Mg/3 Ml Nebu IH PRN PRN Wheezing Aspirin 81 mg 04/20/21 10:00 04/22/21 09:27 Aspirin 81 Mg Tab Chew PO 81 mg QDAY KYAW Administration Atorvastatin Calcium 40 mg 04/20/21 22:00 04/21/21 23:58 Atorvastatin 40 Mg Tab PO 40 mg QHS KYAW Administration Azithromycin 500 mg 04/21/21 10:00 04/22/21 09:28 Azithromycin 250 Mg Tab PO 04/24/21 12:59 500 mg QDAY KYAW Administration Protocol Fluconazole 100 mg 04/20/21 10:00 04/22/21 09:27 Fluconazole 100 Mg Tab PO 100 mg QDAY KYAW Administration Heparin Sodium (Porcine) 5,000 unit 04/20/21 06:00 04/22/21 13:11 Heparin 5,000 Unit/1 Ml Vial SUB-Q 5,000 unit Q8HR KYAW Administration Ceftriaxone Sodium 2 gm in 100 mls @ 200 mls/hr 04/19/21 23:00 04/22/21 09:27 Rocephin/Ns 2 Gm/100 Ml IV 04/23/21 10:29 200 mls/hr Q24HR KYAW Administration Protocol Ipratropium [place] 0.5 mg 04/19/21 12:39 04/21/21 15:07 Ipratropium 0.02% Nebu 2.5 Ml IH 0.5 mg Q4HR PRN Administration Wheezing Magnesium Oxide 400 mg 04/20/21 10:00 04/22/21 09:28 Magnesium Oxide 400 Mg Tab PO 04/24/21 10:01 400 mg QDAY KYAW Administration Miscellaneous Medication 1 each 04/19/21 13:45 04/22/21 09:36 Biktarvy 50-200-25 Tablet PO 1 each DAILY KYAW Administration Miscellaneous Medication 1 each 04/19/21 13:45 04/22/21 09:38 Wixela 25/50 PO 1 each BID KYAW Administration Montelukast Sodium 10 mg 04/20/21 22:00 04/21/21 23:59 Montelukast 10 Mg Tab PO 10 mg QHS KYAW Administration Morphine Sulfate 2 mg 04/19/21 22:02 04/22/21 05:37 Morphine 2 Mg/1 Ml Inj IV 2 mg Q5MIN PRN Administration Chest Pain unrelieved by NTG Nifedipine 30 mg 04/21/21 10:00 04/22/21 09:27 Nifedipine Xl 30 Mg Tab PO 30 mg QDAY KYAW Administration Nitroglycerin 0.4 mg 04/19/21 22:02 Nitroglycerin 0.4 Mg Tab Subl SL Q5M PRN Chest Pain Ondansetron HCl 4 mg 04/19/21 12:39 04/20/21 20:00 Ondansetron 4 Mg Odt Tab PO 4 mg Q6HR PRN Administration Nausea Pantoprazole Sodium 40 mg 04/20/21 10:00 04/22/21 09:28 Pantoprazole 40 Mg Tab PO 40 mg QDAY KYAW Administration Prednisone 40 mg 04/20/21 10:00 04/22/21 09:27 Prednisone 20 Mg Tab PO 40 mg QDAY KYAW Administration Sodium Chloride 10 ml 04/19/21 22:02 04/22/21 09:28 Sodium Chloride 0.9% 10 Ml Flush Syringe IV 10 ml PRN PRN Administration LINE FLUSH Tramadol HCl 50 mg 04/19/21 22:02 04/20/21 19:59 Tramadol 50 Mg Tab PO 50 mg Q6H PRN Administration Pain, Moderate (4-6) Nutrition/Malnutrition Assess - Dietary Evaluation Nutrition/Malnutrition Findings: Nutrition Notes Start: 04/22/21 10:38 Freq: Status: Active Protocol: Document 04/22/21 10:38 ROSY (Rec: 04/22/21 10:42 ROSY [email or web address]) Nutrition Notes 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 Burn Absent Trauma Absent Minimum of two criteria No Is patient on ventilator? No Is Patient Ambulatory and/or Out of Bed Yes REE-([facility]-ambulatory/OOB) [ 1908.686 [id number]] Calculation Used for Recommendations [facility] Additional Notes Pro needs 0.8-1g/k-82g/ day Fluid needs 1ml/kcal Nutrition Intervention Follow-Up By: 04/25/21 Additional Comments F/U: intakes
--- NOTE | 2021-04-22 13:49 | Discharge Summary ---
Providers - Providers Date of Admission: 04/19/21 21:19 Date of discharge: 04/23/21 Attending physician: HOLLY HOLLAND MD 04/19/21 Consult to Cardiac Rehabilitation [CONS] Routine Reason For Exam: Phase I Hospitalization Reason for admission: Acute chest pain Condition: Good Pertinent studies: Reviewed. Procedures: None. Hospital course: 46-year-old female with past medical history of COPD, HIV, COVID-19 pneumonia today is her last day of quarantine and also history of renal insufficiency was brought to the hospital because of 4 days of cough, chest wall pain, congestion, mucus production, nausea, malaise and fatigue. The patient endorsed having chest pain, and he was evaluated. The patient had negative troponin x3, unremarkable TTE, and an unremarkable lung perfusion scan for pulmonary embolism. He was found to be positive for COVID-19, which was diagnosed on his recent hospitalization. Due to concerns for superimposed community acquired pneumonia, the patient was treated with azithromycin 500mg daily and rocphen 2g daily for a 5-day course, that will be completed up on discharge. The patient was monitored and discharged upon clinical improvement. The patient expresses understanding. The patient is medically cleared for discharge. Disposition: HOME / SELF CARE / HOMELESS Final Discharge Diagnosis (Prints w/discharge instructions): COVID-19 pneumonia, community acquired pneumonia, acute chest pain, HIV, COPD Time spent for discharge: 45 min Core Measure Documentation - Palliative Care Palliative Care/ Comfort Measures: Not Applicable - Core Measures Any of the following diagnoses?: none Exam - Constitutional Vitals: Temp Pulse Resp BP Pulse Ox 97.7 F 104 H 19 100/65 96 04/22/21 05:28 04/22/21 05:28 04/22/21 05:28 04/22/21 05:28 04/22/21 11:23 General appearance: Present: no acute distress, well-nourished - EENT Eyes: Present: PERRL, EOM intact ENT: hearing intact, clear oral mucosa, poor dentition - Neck Neck: Present: supple, normal ROM - Respiratory Respiratory effort: normal Respiratory: bilateral: diminished - Cardiovascular Rhythm: regular Heart Sounds: Present: S1 & S2 - Extremities Extremities: no ischemia, pulses intact, pulses symmetrical, No edema, normal temperature, normal color, Full ROM Peripheral Pulses: within normal limits - Abdominal General gastrointestinal: Present: soft, non-tender, non-distended, normal bowel sounds Female genitourinary: Present: deferred - Rectal Rectal Exam: deferred - Integumentary Integumentary: Present: clear, warm, dry - Musculoskeletal Musculoskeletal: strength equal bilaterally - Psychiatric Psychiatric: appropriate mood/affect, intact judgment & insight, memory intact, cooperative - Neurologic Neurologic: CNII-XII intact, moves all extremities - Allied Health Allied health notes reviewed: nursing Plan Activity: advance as tolerated Diet: low salt Additional Instructions: 46-year-old female with past medical history of COPD, HIV, COVID-19 pneumonia today is her last day of quarantine and also history of renal insufficiency was brought to the hospital because of 4 days of cough, ches t wall pain, congestion, mucus production, nausea, malaise and fatigue. The patient endorsed having chest pain, and he was evaluated. The patient had negative troponin x3, unremarkable TTE, and an unremarkable lung perfusion scan for pulmonary embolism. He was found to be positive for COVID-19, which was diagnosed on his recent hospitalization. Due to concerns for superimposed community acquired pneumonia, the patient was treated with azithromycin 500mg daily and rocphen 2g daily for a 5-day course, that will be completed up on discharge. The patient was monitored and discharged upon clinical improvement. The patient expresses understanding. The patient is medically cleared for discharge. Care Plan Goals: Patient is medically cleared for discharge. Assessment: 46-year-old female with past medical history of COPD, HIV, COVID-19 pneumonia today is her last day of quarantine and also history of renal insufficiency was brought to the hospital because of 4 days of cough, chest wall pain, congestion, mucus production, nausea, malaise and fatigue. The patient endorsed having chest pain, and he was evaluated. The patient had negative troponin x3, unremarkable TTE, and an unremarkable lung perfusion scan for pulmonary embolism. He was found to be positive for COVID-19, which was diagnosed on his recent hospitalization. Due to concerns for superimposed community acquired pneumonia, the patient was treated with azithromycin 500mg daily and rocphen 2g daily for a 5-day course, that will be completed up on discharge. The patient was monitored and discharged upon clinical improvement. The patient expresses understanding. The patient is medically cleared for discharge. [facility] Forms: Work/School Release Form Prescriptions: NIFEdipine XL [Procardia Xl] 30 mg PO QDAY #30 tablet
[2021-04-22] MEDS: MONTELUKAST 10 MG TAB PO SCH (21:50)
[2021-04-22] MEDS: traMADol 50 MG TAB PO PRN (21:54)
[2021-04-23] MEDS: HEPARIN 5,000 UNIT/1 ML VIAL SUB-Q SCH ×2 (06:50→14:00)
[2021-04-23] MEDS: ASPIRIN 81 MG TAB CHEW PO SCH (09:20)
[2021-04-23] MEDS: PANTOPRAZOLE 40 MG TAB PO SCH (09:20)
[2021-04-23] MEDS: FLUCONAZOLE 100 MG TAB PO SCH (09:20)
[2021-04-23] MEDS: cefTRIAXone/NS 2 GM/100 ML 2 GM/100 ML BAG IV SCH (09:21)
[2021-04-23] MEDS: MAGNESIUM OXIDE 400 MG TAB PO SCH (09:21)
[2021-04-23] MEDS: predniSONE 20 MG TAB PO SCH (09:21)
[2021-04-23] MEDS: AZITHROMYCIN 250 MG TAB PO SCH (09:21)
[2021-04-23] MEDS: NIFEdipine XL 30 MG TAB PO SCH (09:21)
[2021-04-23] MEDS: BIKTARVY PO SCH (09:24)
[2021-04-23] MEDS: WIXELA PO SCH (09:25)
[2021-04-23] MEDS: MORPHINE 2 MG/1 ML INJ IV PRN (09:37)
[2021-04-23 10:59] VITALS: BP 104/70
== END 2021-04-23 15:53 | disposition home or self-care (01) | DRG 177 ==
LOC: ED 02:09 → 3A 21:19
PROVIDERS: ADMIT Hospitalist; ATTEND Student in an Organized Health Care Education/Training Program
DX: U07.1 COVID-19 (principal); J12.82 Pneumonia due to coronavirus disease 2019; J44.1 Chronic obstructive pulmonary disease with (acute) exacerbation; J44.0 Chronic obstructive pulmonary disease with (acute) lower respiratory infection; I24.9 Acute ischemic heart disease, unspecified; Z21 Asymptomatic human immunodeficiency virus [HIV] infection status; Z88.0 Allergy status to penicillin; Z88.8 Allergy status to other drugs, medicaments and biological substances; Z87.891 Personal history of nicotine dependence; E83.42 Hypomagnesemia
CPT/HCPCS: 36415; 71046; 71275; 80048; 80053; 82140; 83735; 84484; 85007; 85025; 85379; 85610; 93005; 93306; 94644; 94760; 96374; 96375; G0378; J3490; J0696; J1644; J2270; J2930; J7512; Q0162; Q9967; U0003